=== PATIENT | female | born 1950 | race Caucasian/White ===

== ENCOUNTER 2019-12-06 08:08 | Outpatient (CLI) | payer MEDICARE, SELFPAY ==
--- NOTE | ~2019-12-06 | MR_ITS ---
EXAMINATION: MR shoulder LT wo con DATE: 12/06/2019 09:25 INDICATION: Left shoulder pain TECHNIQUE: Magnetic resonance imaging (MRI) of the left shoulder was performed without intravenous co ntrast. Sequences included axial PD-weighted FS FSE, coronal oblique PD-weighted FS FSE, coronal obli que T2-weighted FS FSE, sagittal PD-weighted FS FSE, and sagittal T1-weighted SE. COMPARISON: None. FINDINGS: Coracoacromial arch: The acromion undersurface is curved in morphology (type II). The coracoacromial ligament is normal. M ild acromioclavicular osteoarthritis. Rotator cuff: Mild subscapularis, supraspinatus and infraspinatus tendinopathy without discrete tear. The teres min or tendon is normal. Normal rotator cuff muscle bulk and signal. Biceps tendon, glenoid labrum and glenohumeral cartilage: Long head of the biceps tendon is normal. Is mild amorphous increased signal of less than fluid inten sity along the inferior glenoid labrum and along the base of the superior glenoid labrum consistent w ith labral degeneration which is more evident on the PD weighted than the T2-weighted images. Partial -thickness cartilage loss with smooth chondral surface and without degenerative subchondral changes a long the cephalad half of the glenoid as well as at the superomedial aspect of the humeral head. Fluid: Small glenohumeral joint effusion with proportional extension of fluid along the long head biceps ten don sheath. There is mild synovitis at the axillary recess and along the long head biceps tendon maria th. No loose osteochondral bodies. Also increased fluid signal in the subacromial/subdeltoid bursa co nsistent with minimal bursitis. Bones: Normal marrow signal with no edema, fracture or abnormal marrow replacing process. IMPRESSION: 1. Mild glenohumeral osteoarthritis with degeneration without a discrete well-defined labral tear at the superior and inferior glenoid labrum. 2. Small left glenohumeral joint effusion. 3. Mild rotator cuff tendinopathy without discrete tear. 4. Mild acromioclavicular osteoarthritis. 5. Minimal subacromial/subdeltoid bursitis. Reviewed, dictated and finalized at location A. IMPRESSION: 1. Mild glenohumeral osteoarthritis with degeneration without a discrete well-d efined labral tear at the superior and inferior glenoid labrum. 2. Small left glenohumeral joint effusion. 3. Mild rotator cuff tendinopathy without discrete tear. 4. Mild acromioclavicular osteoarthritis. 5. Minimal subacromial/subdeltoid bursitis.
== END 2019-12-06 08:09 | disposition home or self-care (01) ==
PROVIDERS: PCP Internal Medicine; Visit Provider Orthopaedic Surgery
DX: M25.512 Pain in left shoulder (principal); G89.29 Other chronic pain; M19.012 Primary osteoarthritis, left shoulder; M25.412 Effusion, left shoulder; M75.52 Bursitis of left shoulder; S43.432A Superior glenoid labrum lesion of left shoulder, initial encounter
CPT/HCPCS: 73221

== ENCOUNTER 2020-05-17 08:40 | Outpatient (CLI) | payer MEDICARE, SELFPAY ==
--- NOTE | 2020-05-17 08:45 | ECG_ITS ---
Measurements Intervals [place] Rate: 57 P: -6 [place]: 197 QRS: -16 QRSD: 114 T: 23 QT: 428 QTc: 420 Interpretive Statements SINUS BRADYCARDIA INCOMPLETE RIGHT BUNDLE BRANCH BLOCK DELAYED PRECORDIAL R/S TRANSITION CONSIDER INFERIOR INFARCT, AGE INDETERMINATE BORDERLINE T WAVE ABNORMALITY- ANTEROLATERAL LEADS BASELINE ARTIFACT- I, III, AVL, AVF, V3-V4 ABNORMAL ECG Electronically Signed On 05-17-2020 8:53:12 LANGUAGE INTERPRETER by Germán Luna D.O.
== END 2020-05-17 08:41 | disposition home or self-care (01) ==
LOC: ANHSURGERY 08:42
PROVIDERS: PCP Internal Medicine; Visit Provider Orthopaedic Surgery
DX: I10 Essential (primary) hypertension (principal); Z01.818 Encounter for other preprocedural examination; I45.10 Unspecified right bundle-branch block
CPT/HCPCS: 93005

== ENCOUNTER → 2020-05-19 00:28 | Outpatient (CLI) | payer MEDICARE, SELFPAY ==
[2020-05-19 17:47] LABS: SARS-CoV-2 RNA PCR Negative
== END ==
PROVIDERS: PCP Internal Medicine; Visit Provider Orthopaedic Surgery
DX: Z01.812 Encounter for preprocedural laboratory examination (principal); Z20.822 Contact with and (suspected) exposure to COVID-19
CPT/HCPCS: C9803; U0003; U0005

== ENCOUNTER 2020-05-22 01:29 | Day surgery (SDC) | payer MEDICARE, SELFPAY ==
[2020-05-15 11:33] VITALS: BMI 28.3
[2020-05-22] VITALS (8 sets, daily range): BP systolic 98–155; BP diastolic 49–77; PULSE 55–65; RESP 10–19; TEMP 36–36.4; O2SAT 93–100
[2020-05-22] MEDS: ACETAMINOPHEN 500 MG TABLET 1000 MG PO (06:22)
[2020-05-22] MEDS: LACTATED RINGERS 1,000 ML 30 ML IV CONT ×2 (06:25→08:46)
[2020-05-22] MEDS: KETOROLAC 15 MG/ML VIAL (*BKC) IV PUSH (06:28)
--- NOTE | 2020-05-22 07:06 | WPDHPUPDATE1 ---
History and Physical Update Update Date/Time: 05/22/20 07:06 History and Physical has been reviewed, including an updated exam of the patient. There are NO changes in the patient's condition. Risks, benefits, and alternatives have been discussed and questions answered. Patient agrees to proceed with procedure.
--- NOTE | 2020-05-22 07:12 | WPDANESEPPF ---
Anes - Initial Pre Proc Eval Procedure: Operation Date: 05/22/20 07:30 Proposed Procedures p Left Shoulder Acromioplasty with Distal Clavicle Excision - Talon Mendez MD Date/Time: 05/22/20 07:12 Surgeon: Talon Mendez MD Pre Op Diagnosis: left shoulder impingement with AC arthritis Patient Data Age: 69 Gender: F Height: 1.63 m Weight: 73.8 kg Last Vital Signs Temp 36.0 C L 05/22/20 06:09 Pulse 65 05/22/20 06:09 Resp 18 05/22/20 06:09 BP 145/77 H 05/22/20 06:09 Pulse Ox 100 05/22/20 06:09 Allergies Allergy/AdvReac Type Severity Reaction Status Date / Time No Known Allergies Allergy Unverified 05/22/20 06:47 Home Medications Medication Instructions Recorded Confirmed Type albuterol sulfate 90 mcg/actuation 1 inhalation INHALATION Q4H PRN 10/19/19 05/22/20 History aerosol inhaler alprazolam 0.5 mg tablet 0.5 mg PO TID PRN 10/19/19 05/22/20 History atorvastatin 20 mg tablet 20 mg PO QAM 10/19/19 05/22/20 History carvedilol 12.5 mg tablet 12.5 mg PO QAM 10/19/19 05/22/20 History denosumab 60 mg/mL subcutaneous 60 mg SUB-Q [id number] 10/19/19 05/22/20 History syringe dicyclomine 20 mg tablet 20 mg PO QID 10/19/19 05/22/20 History fluticasone 250 mcg-salmeterol 50 1 inhalation INHALATION BID 10/19/19 05/22/20 History mcg/dose blistr powdr for inhalation mirtazapine 30 mg tablet 30 mg PO HS 10/19/19 05/22/20 History pantoprazole 40 mg tablet,delayed 40 mg PO QAM 10/19/19 05/22/20 History release polyethylene glycol 3350 17 17 gm PO BID 10/19/19 05/22/20 History gram/dose oral powder telmisartan 20 mg tablet 20 mg PO QAM 10/19/19 05/22/20 History promethazine 25 mg tablet 25 mg PO TID PRN 12/14/19 05/22/20 History aspirin [Adult Low Dose Aspirin] 81 mg PO DAILY 05/15/20 05/22/20 History ECG: Date of Service: 05/17/20 Procedure(s): CA 12 lead EKG Accession Number(s): [id number] cc: ~ Measurements Intervals [place] Rate: 57 P: -6 [place]: 197 QRS: -16 QRSD: 114 T: 23 QT: 428 QTc: 420 Interpretive Statements SINUS BRADYCARDIA INCOMPLETE RIGHT BUNDLE BRANCH BLOCK DELAYED PRECORDIAL R/S TRANSITION CONSIDER INFERIOR INFARCT, AGE INDETERMINATE BORDERLINE T WAVE ABNORMALITY- ANTEROLATERAL LEADS BASELINE ARTIFACT- I, III, AVL, AVF, V3-V4 ABNORMAL ECG Electronically Signed On 05-17-2020 8:53:12 PROSTHETIC ASSISTANT by Germán Luna D.O. Patient hx anesthesia problems: none Family hx anesthesia problems: none FOR[facility]LY [facility], [facility] Past Medical History Medical History (Updated 05/22/20 @ 07:15 by Eligio Hernandez MD) Anxiety Arthritis of left acromioclavicular joint BMI 28.0-28.9,adult COPD (chronic obstructive pulmonary disease) Depression HTN (hypertension) Hypercholesterolemia Osteoporosis Smoker Subacromial impingement of left shoulder Surgical History Surgical History H/O left knee surgery [place] 2004 Dr. Petersen H/O right knee surgery 2006 - [facility] Dr. Petersen [address] Dr perry - arthroscopic 1992 tibia repair - Dr. Villegas 1997 arthroscopic - Dr. Villegas H/O: hysterectomy History of appendectomy Hx of tonsillectomy Family History Family History Mother Hypertension Heart disease Father Hypertension Diabetes mellitus Malignant neoplasm of prostate Cancer Social History Social History Smoking packs per day: 2 Smoking cigarettes per day: 40.0 Years smoked: 50 Smoking pack-years: 100.00 Smoking status: Current every day smoker Additional smoking assessment comments: TAPERING DOWN SMOKING CURRENTLY TO ~ 1/2 PACK/DAY [place]
[2020-05-22] MEDS: ceFAZolin 2 GM/D5W 50 ML 2 GM/50 ML BAG IVPB (07:28)
[2020-05-22] MEDS: BUPIVACAINE/EPINEPHRINE 0.25% 50 ML VIAL 30 ML INFILTRATE (08:03)
--- NOTE | 2020-05-22 08:37 | P.OP_ITS ---
Procedure Note - Detailed Date of procedure: 05/22/20 Pre-op diagnosis: left shoulder impingement with AC arthritis Post-op diagnosis: same Procedure performed: Left shoulder open anterior acromioplasty, distal clavicle excision and debridement of rotator cuff Description of procedure: Patient was identified and proper site identified. She was then taken to the operating room and transferred to the or table taking care to pad the torso and extremities. After general anesthetic induction and intubation, she was put in a semi beach chair position in the usual manner for a left shoulder procedure. Her head was secured taking care to neither rotate nor extend the head and neck. The left upper extremity was prepped and draped free in usual sterile fashion. The subcutaneous tissue in the area of the incision was injected with 10 cc of 0.25% Marcaine and epinephrine solution. An oblique anterior incision was made extending from the AC joint distally in line with the fibers of the deltoid. Subcutaneous tissue was sharply dissected down to the deltoid fascia. The deltoid was dissected off the anterior portion of the acromion in the distal end of the clavicle. A 2 cm split was made at the junction between the anterior and middle thirds of the deltoid. Using the microsagittal saw the last 8 mm of clavicle removed. The saw was also used to perform the acromioplasty and then the undersurface of the acromion was rasped smooth. There was abundance of thickened bursa which was sharply debrided along for full inspection of the rotator cuff. The cuff itself was noted to be in excellent condition with no tears noted upon inspection. The wound was irrigated with sterile NaCl solution. The deltoid was repaired back to the acromion with 2. Ethibond suture passed through bone and the remainder of the deltoid repair carried out with 2. Vicryl. Subcutaneous tissue was reapproximated with three 0 V lock and then tissue adhesive used for the skin. Prior to the closure, catheter for the pain pump was placed in the subacromial space exiting through the anterior third of the deltoid. Care was taken to avoid neurovascular structures upon insertion and to avoid entrapment of the catheter during the closure. It was connected to the reservoir which was filled with 100 mL of 1% lidocaine runny and a 2 mL/hour rate. Sterile dressing was applied. There were no known intraoperative complications, and perioperative an tibiotics were administered. This document created with [id number] technology and is subject to technical assistance consultant irregularities. Anesthesia: GETA Surgeon: Talon Mendez MD Wireless Development Manager: Eriberto Sanchez Estimated blood loss (mL): 30 Drains: No Packing: No Pathology: none sent Complications: No immediate complications Condition: stable Disposition: PACU
== END 2020-05-22 10:55 | disposition home or self-care (01) ==
PROVIDERS: PCP Internal Medicine; Visit Provider Orthopaedic Surgery
PROC: (CPT 23420; principal; 2020-05-22 07:30)
DX: M75.42 Impingement syndrome of left shoulder (principal); M19.012 Primary osteoarthritis, left shoulder; I10 Essential (primary) hypertension; J44.9 Chronic obstructive pulmonary disease, unspecified; E78.00 Pure hypercholesterolemia, unspecified; M81.0 Age-related osteoporosis without current pathological fracture; F41.8 Other specified anxiety disorders; F17.210 Nicotine dependence, cigarettes, uncomplicated
CPT/HCPCS: 23130; 23120; A4565; A9270; J0330; J0690; J1100; J1885; J2250; J2370; J2405; J2704; J2710; J3010; J7120

== ENCOUNTER 2023-11-04 10:07 | Outpatient (CLI) | payer MEDICARE, SELFPAY ==
--- NOTE | ~2023-11-04 | MM_ITS ---
EXAMINATION: MM screening roger BI w pooja HISTORY: Screening TECHNIQUE: Craniocaudal and mediolateral oblique 3-D tomosynthesis images were obtained and synthetic 2-D images were generated. CAD analysis was submitted and interpreted. COMPARISON: 05/05/2017 BREAST PARENCHYMAL COMPOSITION: Dense: The breasts are heterogeneously dense, which may obscure small masses FINDINGS: There is no evidence of suspicious mass, calcification, or architectural distortion to sugg est malignancy in either breast. There has been no suspicious interval change. IMPRESSION: 1. No mammographic evidence of malignancy. 2. Recommend routine screening mammography in one year. BI-RADS Category 1: Negative Reviewed, dictated and finalized at location B.
== END 2023-11-04 10:08 ==
LOC: MICIMG 10:09
PROVIDERS: PCP Internal Medicine; Visit Provider Internal Medicine
DX: Z12.31 Encounter for screening mammogram for malignant neoplasm of breast (principal)
CPT/HCPCS: 77063; 77067

== ENCOUNTER 2024-02-12 23:46 | Emergency (ER) | payer MEDICARE, SELFPAY ==
--- NOTE | ~2024-02-12 | XR_ITS ---
AP view of the pelvis and AP and lateral views of the left hip Clinical history: Pain Findings: No acute fracture or dislocation is seen. Osseous alignment is anatomic. Bilateral hip and SI joint spaces are preserved. Soft tissues are unremarkable. Impression: No significant abnormality is seen. Reviewed, dictated and finalized at [facility]. ING AND PRIMING OPERATOR Impression: No significant abnormality is seen.
--- NOTE | ~2024-02-12 | XR_ITS ---
Clinical Indication: Dizziness, fall PA and lateral views of the chest: Comparison: None Findings: Possible minimal bibasilar interstitial edema. No pleural effusion.. Cardiomediastinal giovanni houette is within normal limits. Bones and soft tissues are unremarkable. Impression: Possible minimal bibasilar interstitial edema. Reviewed, dictated and finalized at [facility]. ON CLASSER Impression: Possible minimal bibasilar interstitial edema.
[2024-02-12 23:56] VITALS: BP 182/86; PULSE 64; RESP 18; TEMP 36.8; O2SAT 96
--- NOTE | 2024-02-13 02:07 | ECG_ITS ---
Test Date: 2024-02-13 02:33:46 Measurements Intervals [place] Rate: 66 P: 26 [place]: 225 QRS: -28 QRSD: 126 T: 27 QT: 427 QTc: 450 Interpretive Statements SINUS RHYTHM WITH FIRST DEGREE AV BLOCK RIGHT BUNDLE BRANCH BLOCK INFERIOR INFARCT, AGE INDETERMINATE BASELINE ARTIFACT- I, III, AVL ABNORMAL ECG No previous ECG available for comparison Electronically Signed On 02-13-2024 06:26:01 CORPORATE CONSULTANT by Germán Luna D.O.
[2024-02-13 02:22] VITALS: BP 150/81; PULSE 74; RESP 19; O2SAT 95
[2024-02-13 02:44] LABS: Basophils Percent Auto 0.3 % (0.2-1.2); Eosinophils Absolute Auto 0.2 K/mm3 (0-0.3); Eosinophils Percent Auto 1.3 % (0-4.4); Hematocrit 39.2 % (37.0-47.0); Immature Granulocyte Absolute 0.04 K/mm3 (0.00-0.031); Immature Granulocyte Percent A 0.3 % (0-0.5); Lymphocytes Absolute Auto 2.39 K/mm3 (0.9-3.2); Lymphocytes Percent Auto 20.3 % (18.3-44.2); Mean Corpuscular HGB Conc 33.2 g/dl (32-36); Mean Corpuscular Hemoglobin 30.2 pg (26-34); Mean Corpuscular Volume 91.2 fl (80-100); Mean Platelet Volume 10.5 fl (7.4-10.4); Monocytes Absolute Auto 0.5 K/mm3 (0.1-0.6); Monocytes Percent Auto 4.6 % (2.6-8.5); Neutrophils Absolute Auto 8.6 K/mm3 (1.3-6.7); Neutrophils Percent Auto 73.2 % (45.5-73.1); Platelet Count Result 222 k/mm3 (150-375); Red Cell Distribution Width 13.4 % (11.5-14.5); White Blood Count 11.8 K/mm3 (4.5-10.0)
[2024-02-13] MEDS: MECLIZINE HCL 25 MG TABLET PO (02:53)
[2024-02-13] MEDS: MORPHINE SULFATE (*CRX) 2 MG/ML INJ IV PUSH (02:53)
[2024-02-13 02:55] LABS: Prothrombin Time 13.9 Seconds (11.1-14.7)
[2024-02-13 03:05] LABS: Alanine Aminotransferase 17 U/L (6-35); Albumin Level 4.1 g/dL (3.5-5.1); Alkaline Phosphatase 120 U/L (38-126); Anion Gap 6 mmol/L (4-12); Aspartate Amino Transferase 26 U/L (14-36); Bilirubin,Total 0.4 mg/dL (0.2-1.3); Blood Urea Nitrogen 17 mg/dL (7-17); Calcium 9.5 mg/dL (8.4-10.2); Carbon Dioxide 27 mmol/L (22-30); Chloride 105 mmol/L (98-107); Estimated CRCL calculation 52 ml/min; Estimated Glomerular Filt Rate > 60; Glucose 198 mg/dL (65-110); Lipase 167 U/L (23-300); Potassium 3.5 mmol/L (3.4-5.0); Sodium 138 mmol/L (137-145)
[2024-02-13 03:17] LABS: Troponin I < 0.012 ng/mL (0.000-0.034)
[2024-02-13 04:04] VITALS: BP 183/88; PULSE 62; RESP 19; O2SAT 98
--- NOTE | 2024-02-13 05:13 | ED_ITS ---
HPI - General Adult General Chief complaint: Dizziness Stated complaint: light headed, dizzy Time Seen by Provider: 02/13/24 02:11 History of Present Illness HPI narrative: Patient is a 73-year-old female who presents ER with dizziness. Began yesterday at 3:00 a.m.. She has episodes of spinning dizziness that occur when she looks down. The dizziness will fatigue over couple of minutes. Occasional warmth and nausea. No numbness or weakness to an arm or leg. No slurred speech. She did have a fall onto her left side hurting her hip but she still is able to walk and maintain range of motion. She is not on any blood thinners. She did not strike her head. Related Data Home Medications Medication Instructions Recorded Confirmed albuterol sulfate 90 mcg/actuation 1 inhalation inhalation Q4H PRN 10/19/19 07/04/20 aerosol inhaler (ProAir HFA) Dyspnea alprazolam 0.5 mg tablet 0.5 mg PO TID PRN Anxiety 10/19/19 07/04/20 atorvastatin 20 mg tablet 20 mg PO QAM 10/19/19 06/06/20 carvedilol 12.5 mg tablet 12.5 mg PO QAM 10/19/19 07/04/20 denosumab 60 mg/mL subcutaneous 60 mg subcut [id number] 10/19/19 07/04/20 syringe (Prolia) dicyclomine 20 mg tablet 20 mg PO QID 10/19/19 07/04/20 fluticasone 250 mcg-salmeterol 50 1 inhalation inhalation BID 10/19/19 07/04/20 mcg/dose blistr powdr for inhalation (Advair Diskus) mirtazapine 30 mg tablet 30 mg PO HS 10/19/19 07/04/20 pantoprazole 40 mg tablet,delayed 40 mg PO QAM 10/19/19 07/04/20 release polyethylene glycol 3350 17 17 gm PO BID 10/19/19 07/04/20 gram/dose oral powder telmisartan 20 mg tablet 20 mg PO QAM 10/19/19 07/04/20 promethazine 25 mg tablet 25 mg PO TID PRN Nausea 12/14/19 07/04/20 aspirin 81 mg tablet,delayed 81 mg PO DAILY 05/15/20 07/04/20 release (Adult Low Dose Aspirin) Allergies Allergy/AdvReac Type Severity Reaction Status Date / Time No Known Allergies Allergy Verified 02/13/24 02:23 Review of Systems Review of Systems: All systems reviewed & are unremarkable except as noted in HPI and below Constitutional: Constitutional: Reports no additional constitutional complaints ENT: Reports dizziness, Denies nasal congestion and Denies sore throat Cardiovascular: Cardiovascular: Reports no additional cardiovascular complaints Respiratory: Respiratory: Reports no additional respiratory complaints Integumentary/Breasts: Skin/Breast: Reports system reviewed and no additional complaints, except as docu Neurologic: Reports system reviewed and no additional complaints, except as documented [facility] Past Medical History Medical History Anxiety BMI 28.0-28.9,adult COPD (chronic obstructive pulmonary disease) Depression HTN (hypertension) Hypercholesterolemia Osteoporosis Smoker Surgical History Surgical History H/O left knee surgery [place] 2004 Dr. Petersen H/O right knee surgery 2006 - [facility] Dr. Petersen 1991 [address] perry - arthroscopic 1992 tibia repair - Dr. Villegas 1997 arthroscopic - Dr. Villegas H/O: hysterectomy History of appendectomy Hx of tonsillectomy Status post shoulder surgery Left shoulder acromioplasty and distal clavicle excision May 2020 Family History Family History Mother Hypertension Heart disease Father Hypertension Diabetes mellitus Malignant neoplasm of prostate Cancer Social History Social History Smoking packs per day: 2 Smoking cigarettes per day: 40.0 Years smoked: 50 Smoking pack-years: 100.00 Smoking status: Current every day smoker Additional smoking assessment comments: TAPERING DOWN SMOKING CURRENTLY TO ~ 1/2 PACK/DAY Alcohol intake: current Drinks per week: 3 Alcohol use details: occasional Substance use: never Living arrangements: with family Additional living arrangements comments: HUSB Occupation/Education: retired Gender identity (if verbalized by the patient): Male Spiritual care concerns: No Exam Narrative: GENERAL: Well-appearing, well-nourished, and in no acute distress. HEAD: Normocephalic, atraumatic. EYES: PERRL and EOMI. ENT: Mucous membranes moist. TMs normal bilaterally. CHEST: Clear to auscultation. No respiratory distress. HEART: Regular rate and rhythm. Normal peripheral pulses. ABDOMEN: Soft, nontender, nondistended. EXTREMITIES: Normal range of motion. No edema. SKIN: Warm, dry, no rash. NEURO: Alert and oriented x3. PSYCH: Normal mood and affect. Course Course Emergency Course: Reproducible dizziness when looking down. Modest improvement with meclizine. Patient ambulates with steady gait in the ER. No evidence of fracture on imaging. Appropriate for discharge in that is patient's preference. Vital Signs Vital signs: Vital Signs Temperature 98.3 F 02/12/24 23:56 Pulse Rate 64 02/12/24 23:56 Respiratory Rate 18 02/12/24 23:56 Blood Pressure 182/86 H 02/12/24 23:56 Pulse Oximetry 96 02/12/24 23:56 Oxygen Delivery Room Air 02/12/24 23:56 Temperature 98.3 F 02/12/24 23:56 Pulse Rate 62 02/13/24 04:04 Respiratory Rate 19 02/13/24 04:04 Blood Pressure 183/88 H 02/13/24 04:04 Pulse Oximetry 98 02/13/24 04:04 Oxygen Delivery Room Air 02/12/24 23:56 Medical Decision Making Vital Signs Vital Signs: Vital Signs Temperature 98.3 F 02/12/24 23:56 Pulse Rate 64 02/12/24 23:56 Respiratory Rate 18 02/12/24 23:56 Blood Pressure 182/86 H 02/12/24 23:56 Pulse Oximetry 96 02/12/24 23:56 Oxygen Delivery Room Air 02/12/24 23:56 Temperature 98.3 F 02/12/24 23:56 Pulse Rate 62 02/13/24 04:04 Respiratory Rate 19 02/13/24 04:04 Blood Pressure 183/88 H 02/13/24 04:04 Pulse Oximetry 98 02/13/24 04:04 Oxygen Delivery Room Air 02/12/24 23:56 Lab Data 02/13/24 02:39 02/13/24 02:39 Labs: Lab Results 02/13/24 Range/Units 02:39 WBC 11.8 H (4.5-10.0) K/mm3 RBC 4.30 (4.2-5.4) M/mm3 Hgb 13.0 (12.0-15.0) g/dL Hct 39.2 (37.0-47.0) % MCV 91.2 (80-100) fl MCH 30.2 (26-34) pg MCHC 33.2 (32-36) g/dl RDW 13.4 (11.5-14.5) % Plt Count 222 (150-375) k/mm3 MPV 10.5 H (7.4-10.4) fl Immature Gran % (Auto) 0.3 (0-0.5) % Neut % (Auto) 73.2 H (45.5-73.1) % Lymph % (Auto) 20.3 (18.3-44.2) % [place] % (Auto) 4.6 (2.6-8.5) % Eos % (Auto) 1.3 (0-4.4) % Baso % (Auto) 0.3 (0.2-1.2) % Lymph # (Auto) 2.39 (0.9-3.2) K/mm3 [place] # (Auto) 0.5 (0.1-0.6) K/mm3 Eos # (Auto) 0.2 (0-0.3) K/mm3 Baso # (Auto) 0.0 (0.0-0.1) K/mm3 Abs Immat Gran (auto) 0.04 H (0.00-0.031) K/mm3 Absolute Neuts (auto) 8.6 H (1.3-6.7) K/mm3 Absolute Nucleated RBC 0.000 (0.0-0.012) K/mm3 Nucleated RBC % 0.0 (0.0-0.2) % PT 13.9 (11.1-14.7) Seconds INR 1.0 APTT 26.0 (22.3-36.8) Seconds Sodium 138 (137-145) mmol/L Potassium 3.5 (3.4-5.0) mmol/L Chloride 105 (98-107) mmol/L Carbon Dioxide 27 (22-30) mmol/L Anion Gap 6 (4-12) mmol/L BUN 17 (7-17) mg/dL Creatinine 0.70 (0.7-1.0) mg/dL Estim Creat Clear Calc 52 ml/min Estimated GFR > 60 (59 - ) Glucose 198 H (65-110) mg/dL Calcium 9.5 (8.4-10.2) mg/dL Total Bilirubin 0.4 (0.2-1.3) mg/dL AST 26 (14-36) U/L ALT 17 (6-35) U/L Alkaline Phosphatase 120 (38-126) U/L Troponin I < 0.012 (0.000-0.034) ng/mL Total Protein 8.0 (6.3-8.2) g/dL Albumin 4.1 (3.5-5.1) g/dL Lipase 167 (23-300) U/L Imaging Data Radiologist's impression: X-ray left hip and pelvis: No acute fracture. Chest x-ray: No acute cardiopulmonary process ECG Data EKG #1: ECG completion date: 02/13/24 ECG completion time: 02:33 EKG Interpretation: normal rate (66), sinus rhythm, no ectopy, no ST changes, normal QRS, normal QT and left axis Discharge Plan Discharge Clinical Impression: Vertigo Patient Disposition: Home, Self-Care Condition: Stable Instructions: Vertigo (ED) Additional Instructions: Return to the ER if you have weakness in an arm/leg, you cannot speak, you lose consciousness, or suffer injury. Prescriptions: New meclizine 12.5 mg tablet 12.5 mg PO TID PRN (Reason: dizziness) Qty: 20 0RF No Action polyethylene glycol 3350 17 gram/dose powder 17 gm PO BID alprazolam 0.5 mg tablet 0.5 mg PO TID PRN (Reason: Anxiety) mirtazapine 30 mg tablet 30 mg PO HS carvedilol 12.5 mg tablet 12.5 mg PO QAM Rx Instructions: must administer with a meal/food pantoprazole 40 mg tablet,delayed release (DR/EC) 40 mg PO QAM dicyclomine 20 mg tablet 20 mg PO QID atorvastatin 20 mg tablet 20 mg PO QAM fluticasone propion-salmeterol [Advair Diskus] 250-50 mcg/dose blister with device 1 inhalation INHALATION BID albuterol sulfate [ProAir HFA] 90 mcg/actuation HFA aerosol inhaler 1 inhalation INHALATION Q4H PRN (Reason: Dyspnea) telmisartan 20 mg tablet 20 mg PO QAM Prolia 60 mg/mL syringe 60 mg SUB-Q [id number] promethazine 25 mg tablet 25 mg PO TID PRN (Reason: Nausea) aspirin [Adult Low Dose Aspirin] 81 mg Tablet,Delayed Release (Dr/Ec) 81 mg PO DAILY hydrocodone-acetaminophen 5-325 mg tablet 1 tablet PO Q4H PRN (Reason: pain) Qty: 42 0RF ondansetron 4 mg tablet,disintegrating 4 mg PO Q6H Qty: 10 1RF Follow-up/Referrals: Rakan,MD Reilly [Primary Care Provider] - 1 Week
== END 2024-02-13 05:45 | disposition home or self-care (01) ==
PROVIDERS: Emergency Provider Emergency Medicine; PCP Internal Medicine
DX: R42 Dizziness and giddiness (principal); I10 Essential (primary) hypertension; J44.9 Chronic obstructive pulmonary disease, unspecified; E78.00 Pure hypercholesterolemia, unspecified; M81.0 Age-related osteoporosis without current pathological fracture; F17.210 Nicotine dependence, cigarettes, uncomplicated; Z96.653 Presence of artificial knee joint, bilateral; Z90.710 Acquired absence of both cervix and uterus; Z79.899 Other long term (current) drug therapy; Z79.82 Long term (current) use of aspirin; I44.0 Atrioventricular block, first degree; I45.10 Unspecified right bundle-branch block; R94.31 Abnormal electrocardiogram [ECG] [EKG]
CPT/HCPCS: 36415; 71046; 73502; 80053; 83690; 84484; 85025; 85610; 85730; 93005; 96374; 99284; A9270; J2270

== ENCOUNTER 2024-02-27 10:06 | Outpatient (CLI) | payer MEDICARE, SELFPAY ==
--- NOTE | ~2024-02-27 | MR_ITS ---
MRI of the brain Clinical History: Dizziness, vertigo Technique: Axial and sagittal T1-weighted images were acquired. These were followed by axial T2-weigh denise, diffusion weighted, gradient, and FLAIR images. Findings: There is no acute infarct, intracranial hemorrhage, or mass lesion. There are mild to moder ate chronic microvascular ischemic changes in the periventricular white matter bilaterally. Ventricles and subarachnoid spaces are unremarkable. Orbits are unremarkable. Paranasal sinuses and m astoid air cells are clear. Major intracranial flow voids appear intact. Sagittal midline structures are intact. IMPRESSION: No acute infarct, internal hemorrhage or mass lesion. Mild to moderate chronic microvascular ischemic changes. Reviewed, dictated and finalized at location M. CIATE TRAINER
== END 2024-02-27 10:07 | disposition home or self-care (01) ==
LOC: GOSHIMG 10:09
PROVIDERS: PCP Internal Medicine; Visit Provider Internal Medicine
DX: R42 Dizziness and giddiness (principal)
CPT/HCPCS: 70551

== ENCOUNTER 2024-06-24 07:44 | Outpatient (CLI) | payer MEDICARE, SELFPAY ==
--- NOTE | ~2024-06-24 | MR_ITS ---
MRI of the right shoulder Technique: Axial proton-density fat-sat images, coronal proton density fat-sat and T2 fat-sat images, and sagittal T1-weighted and T2 fat-sat images were acquired. Clinical History: Pain Findings: There is mild AC joint degenerative change. Coracoclavicular, coracoacromial, and coracohum eral ligaments are intact. There is advanced supraspinatus and infraspinatus tendinosis. There is a focal low-grade interstitial tear at the distal infraspinatus tendon insertion region. No high-grade partial or full-thickness te ar. Tendon of the long head of biceps is intact. Subscapularis tendon is intact. No definite labral tear identified. Inferior glenohumeral ligament is intact. There is moderate to large glenohumeral joint effusion, non specific. There is associated fluid distention of the bicipital tendon sheath. No significant degener ative change of glenohumeral joint. No muscle atrophy or edema. Impression: Advanced supraspinatus and infraspinatus tendinosis with focal low-grade linear interstitial tear of the distal infraspinatus tendon insertion. No high-grade partial or full-thickness rotator cuff tear. Moderate to large glenohumeral joint effusion, nonspecific. Consider joint aspiration if indicated. Mild AC joint degenerative change. Reviewed, dictated and finalized at [facility]. Impression: Advanced supraspinatus and infraspinatus tendinosis with focal low-grade linear interstitial tear of the distal infraspinatus tendon insertion. No high-grade partial or full-thickness rotator cuff tear. Moderate to large glenohumeral joint effusion, nonspecific. Consider joint aspi ration if indicated. Mild AC joint degenerative change.
== END 2024-06-24 07:45 | disposition home or self-care (01) ==
LOC: MICIMG 07:46
PROVIDERS: PCP Internal Medicine; Visit Provider Orthopaedic Surgery
DX: M75.81 Other shoulder lesions, right shoulder (principal); M19.011 Primary osteoarthritis, right shoulder; M25.411 Effusion, right shoulder
CPT/HCPCS: 73221

== ENCOUNTER 2024-08-27 07:17 | Outpatient (CLI) | payer MEDICARE, SELFPAY ==
--- NOTE | 2024-08-27 | ECHO_ITS ---
Patient Info Name: Duyen Do Age: 73 years : 1950 Gender: Female Ht: 64 in Wt: 160 lbs BSA: 1.83 m2 HR: 55 bpm BP: 132 / 79 mmHg Heart Rhythm: Bradycardia Technical Quality: Good Exam Date: 08/27/2024 8:08 AM Patient Status: O Admit Date: 08/27/2024 Exam Type: CA echo doppler color flow Complete two-dimensional, color flow and Doppler transthoracic echocardiogram is performed. Manager Engine: Marlen Sy Attending Provider: Reilly Bledsoe Summary 1. Left ventricular chamber dimension is normal. 2. Left ventricular systolic function is normal, estimated at 65-70. 3. There is moderately increased left ventricular wall thickness. 4. The left ventricular diastolic function is grade I diastolic dysfunction. 5. Right ventricular systolic function is normal. 6. Left atrial chamber dimension is mildly enlarged. 7. There is mild aortic valve regurgitation. 8. There is mild tricuspid valve regurgitation. 9. Cannot rule out PFO/ASD by color Doppler. Left Ventricle Left ventricular chamber dimension is normal. Left ventricular systolic function is normal, estimated at 65-70. There is moderately increased left ventricular wall thickness. The left ventricular diastolic function is grade I diastolic dysfunction. Right Ventricle Right ventricular chamber dimension is normal. Right ventricular systolic function is normal. Left Atria Left atrial chamber dimension is mildly enlarged. Right Atria Right atrial chamber dimension is normal. Atrial Septum Cannot rule out PFO/ASD by color Doppler. Aortic Valve The aortic valve is not well visualized. There is no aortic valve stenosis. There is mild aortic valve regurgitation. Pulmonic Valve The pulmonic valve is not well visualized. Mitral Valve There is trace mitral valve regurgitation. Tricuspid Valve There is mild tricuspid valve regurgitation. Pericardium/Pleural There is no pericardial effusion. Inferior Vena Cava Normal inferior vena cava with >50% collapse upon inspiration consistent with normal right atrial pressure, 3 mmHg. Aorta The aortic root size at the sinus of Valsalva is normal. Left Ventricular Outflow Tract Name Value Normal LVOT Doppler LVOT Peak Velocity 92 cm/s LVOT Peak Gradient 3 mmHg LVOT Mean Gradient 2 mmHg LVOT VTI 25 cm LVOT VTI/AV VTI Ratio 0.8 Pulmonic Valve Name Value Normal PV Doppler PV Peak Velocity 95 cm/s PV Peak Gradient 4 mmHg Mitral Valve Name Value Normal MV Diastolic Function MV E Peak Velocity 64 cm/s MV A Peak Velocity 110 cm/s MV E/A 0.6 MV Decel Time (PW) 400 ms MV Annular TDI MV E/e' (Septal) 13.3 MV E/e' (Lateral) 10.1 MV E/e' (Average) 11.7 Tricuspid Valve Name Value Normal TV Regurgitation Doppler TR Peak Velocity 258 cm/s TR Peak Gradient 27 mmHg Estimated PAP/RSVP RA Pressure 3 mmHg <=5 PA Systolic Pressure 30 mmHg <36 RV Systolic Pressure 30 mmHg <36 TV Annular TDI TV Lateral Donna s' Velocity 10.5 cm/s >=9.5 Aorta Name Value Normal Ascending Aorta Ao Root Diameter (MM) 3.5 cm Ao Root Diam Index (MM) 1.9 cm/m2 Aortic Valve Name Value Normal AV Doppler AV Peak Velocity 150 cm/s AV Peak Gradient 9 mmHg AV Mean Gradient 4 mmHg AV VTI 30 cm AV DI (Abelino) 0.61 Ventricles Name Value Normal LV Dimensions 2D/MM IVS Diastolic Thickness (2D) 1.3 cm 0.6-1.0 LVID Diastole (2D) 4.1 cm 3.8-5.2 LVIW Diastolic Thickness (2D) 1.2 cm 0.6-0.9 LVID Systole (2D) 3.0 cm 2.2-3.5 LV Mass (2D Cubed) 183.85 g 67.00-162.00 LV Mass Index (2D Cubed) 101 g/m2 43-95 Relative Wall Thickness (2D) 0.58 <=0.42 LV Fractional Shortening/Ejection Fraction 2D/MM LV Fractional Shortening (2D) 27 % 27-45 LV EF (2D Teichholz) 53 % LV Diastolic Volume (4C MOD) 57 ml LV EF (4C MOD) 60 % LV Diastolic Volume (2C MOD) 75 ml LV EF (2C MOD) 73 % LV Diastolic Volume (BP MOD) 66 ml 46-106 LV Diastolic Volume Index (BP MOD) 36 ml/m2 29-61 LV Systolic Volume (BP MOD) 21 ml 14-42 LV Systolic Volume Index (BP MOD) 12 ml/m2 8-24 LV EF (BP MOD) 68 % 54-74 LV Diastolic Length (4C) 7.7 cm LV Systolic Length (4C) 6.0 cm LV Stroke Volume (4C MOD) 34 ml RV Dimensions 2D/MM RVID Diastole (2D) 3.2 cm 2.1-3.5 Atria Name Value Normal LA Dimensions LA Volume (4C A-L) 44 ml LA Volume (BP A-L) 49 ml RA Dimensions RA Systolic Major Graton Length (4C) 4.4 cm 2.2-2.8 RA Area (4C) 12.3 cm2 <=18.0 Report Signatures
--- NOTE | 2024-08-27 | ECG_ITS ---
Test Date: 2024-08-27 08:39:01 Measurements Intervals Randolph Rate: 54 P: 186 ME: 118 QRS: -18 QRSD: 131 T: 21 QT: 464 QTc: 440 Interpretive Statements SINUS BRADYCARDIA WITH SHORT ME INTERVAL INCOMPLETE RIGHT BUNDLE BRANCH BLOCK INFERIOR INFARCT, AGE INDETERMINATE BORDERLINE ST-T WAVE ABNORMALITY0 ANTERIOR LEADS BASELINE ARTIFACT- I, II, III, AVR, AVL, AVF, V1, V4-V6 ABNORMAL ECG Compared to ECG 02/13/2024 02:33:46 NO SIGNIFICANT CHANGE Electronically Signed On 08-27-2024 09:20:58 CDT by Germán Luna D.O.
--- OUTSIDE RECORDS SUMMARY | 2024-08-27 07:23 | XMS_ITS | Data Portability ---
Author Organization [place] [facility], Main Office Address [address] [place] [address] Care Team Providers Care Desk Clerk Name Role Phone MILES BLEDSOE Primary Care Provider MILES BLEDSOE Referring Provider [phone] Assessment Encounter Date Assessment Date Assessment LastModified by Organization Details LastModified Time 10/07/2022 10/07/2022 Continue current therapy Blood work ordered Immunizations and screening ordered were appropriate patient agreeable Take her blood pressure during the next 1 of the spells and reports the office [email or web address] Not available 10/07/2022 22:12:33 02/03/2023 02/03/2023 Continue current therapy will workup her dizziness and palpitations with the ordered testing she will see me back in 4 months again is sounds most like vasovagal of she gets sweaty dizzy very quick to recover [email or web address] Not available 02/03/2023 13:56:58 Plan of Treatment Reminders Order Date Submit Date Provider Last Modified By Organization Details Last Modified Time Details Appointments None recorded. Lab T4, free, serum 2022 023 [facility] (Lab), [address] [place], [address], 3 14:40:10 T3, free, serum or plasma 2022 023 [facility] (Lab), [address] [place], [address], 3 14:40:12 TSH, serum or plasma 2022 023 [facility] (Lab), [address] [place], [address], 3 14:51:44 magnesium, serum or plasma 2022 023 [facility] (Lab), [address] [place], [address], 3 14:33:47 CMP, serum or plasma 2022 023 [facility] (Lab), [address] [place], [address], 3 14:33:58 CBC w/ auto diff 2022 023 [facility] (Lab), [address] [place], [address], 3 13:49:30 lipid panel, serum 2022 023 [facility] (Lab), [address] [place], [address], 3 14:34:04 CBC w/ auto diff [address] (Lab), [address] [place], [address], 3 13:13:01 lipid panel, serum 2022 023 [facility] (Lab), [address] [place], [address], 3 13:19:34 CMP, serum or plasma 2022 023 [facility] (Lab), [address] [place], [address], 3 13:19:43 Referral None recorded. Procedures lexiscan cardiolite stress test (PROC) 2022 023 [email or web address] [facility], [address], [address], [place], [address], 4 18:49:34 Surgeries None recorded. Imaging US, echocardiog merle 2022 023 [facility], [address], [address], [place], [address], 3 16:47:13 holter monitor - 2 wk holter 2022 023 [facility], [address], [address], [place], [address], 4 12:19:00 US, duplex, carotid artery 2022 023 [facility], [address], [address], [place], [address], 3 00:21:07 electrocard iogram 2022 023 [email or web address] [facility] [address], [address], [place], [address], 3 13:57:14 Medication Orders None recorded. Patient TargetsNo targets recorded. Patient Instructions Encounter Date Encounter Id Patient Instructions Last Modified By Organization Details Last Modified Time 10/07/2022 [id number] dementia rating scale-2* [email or web address] Not available 10/07/2022 13:13:01 multi-dimensiona l health assessment questionnaire* [email or web address] Not available 10/07/2022 13:13:01 care plan* [email or web address] Not available 10/07 13:13:01 advance directiv es: care instructions Not available 10/07/2022 13:13:01 advance care planning: care instructions [email or web address] Not available 10/07/2022 13:13:01 [place] Advance Directives [email or web address] Not available 10/07/2022 13:13:01 Personalized Hea lth Plan and Screening Recommendations Advance Directives - Do you have one? Advance Directives - Do we have your advance directive on file in your health record? Primary Prevention/Interven tion (prevents or decreases the chance of common diseases from occurring) Smoking Risk: Alcohol Misuse Screening: Weight: Physical activity: Nutrition: Fall Risk (screened today): Vaccines Pneumococcal: # Ordered Recommend ed today Recommended today, but you have declined No further needed Your next one in: Influenza: # Ordered Recommend ed today Recommended today, but you have declined Your next one in the fall of this year Chronic Disease Risks Stroke: Active diagnosis, Continue current treatment plan Heart Attack: Active diagnosis, Continue current treatment plan Clogging of the Arteries: Active diagnosis, Continue current treatment plan Diabetes: Active diagnosis, Continue current treatment plan Secondary Prevention/Interven tion (detects treatable diseases before they may cause symptoms, disability, or ) Breast Cancer Screening with mammogram: Cervical/Uterine/Ov randy Cancer Screening: Osteoporosis Screening: Date Screening Last Performed: Colon Cancer Screening: Date Screening Last Performed: Eye Disease Screening: Your next exam in:# Ordered Recomm ended today Recommended today, but you have declined No Eye exam necessary Dementia Risk: Depression Screening: Active diagnosis, Continue current treatment plan [email or web address] Not available 10/07/2022 11:08:04 Reason for Referral None Reported. Results Created Date Observation Date Name Description Value Unit Range Abnormal Flag Note LastModifiedBy Organization Detail LastModifiedTime 06/21/19 22 06/20/2021 LIPID PANEL cholesterol 175 mg/dL 140-19 9 NIH GISEL NSUS RECOM MENDA TION FOR LION STERO L: ADULT CHILD LOW RISK: <200 <170 BORDE RLINE : <200- 239 ----- HIGH RISK: >240 >200 Not Available [facility] (Lab) [facility] [place], [address], 06/20/2021 18:35:03 06/21/19 22 06/20/2021 LIPID PANEL triglyceride s 268 mg/dL 0-150 high NIH GISEL NSUS REPOR T RECOM MENDA TION FOR TRIGL YCERI RUBIO: ADULT CHILD LOW RISK: <150 ----- BODER LINE: 150-1 99 ----- HIGH RISK: >200 ----- Not Available [facility] (Lab) [address] [place], [address], 06/20/2021 18:35:03 06/21/19 22 06/20/2021 LIPID PANEL HDL cholesterol 50 mg/dL 40- Not Available [facility] (Lab) [address] [place], [address], 06/20/2021 18:35:03 06/21/19 22 06/20/2021 LIPID PANEL LDL cholesterol, calculated 71 mg/dL 0-130 NIH GISEL NSUS REPOR T RECOM MENDA TIONS FOR LDL: ADULT CHILD LOW RISK <130 <110 (OPTI MAL LDL) <100 ----- BORDE RLINE : 130-1 59 ----- HIGH RISK: >160 >130 A TRIGL YCERI DE RESUL T >400 INVAL IDATE S THE CALCU LATIO N FOR LDL FRACT IONAT ION - THE LDL RESUL T WILL NOT BE REPOR MERRILL. Not Available [facility] (Lab) [address] [place], [address], 06/20/2021 18:35:03 06/21/19 22 06/20/2021 COMPR EHENS ISRAEL METAB OLIC PANEL sodium 141 mmol/ L 137-14 5 Not Available [facility] (Lab) [address] [place], [address], 06/20/2021 18:34:58 06/21/19 22 06/20/2021 COMPR EHENS ISRAEL METAB OLIC PANEL potassium 4.9 mmol/ L 3.5-5. 1 Not Available [facility] (Lab) [address] [place], [address], 06/20/2021 18:34:58 06/21/19 22 06/20/2021 COMPR EHENS ISRAEL METAB OLIC PANEL chloride 105 mmol/ L 98-107 Not Available [facility] (Lab) [address] [place], [address], 06/20/2021 18:34:58 06/21/19 22 06/20/2021 COMPR EHENS ISRAEL METAB OLIC PANEL carbon dioxide 29 mmol/ L 22-30 Not Available [facility] (Lab) [address] [place], [address], 06/20/2021 18:34:58 06/21/19 22 06/20/2021 COMPR EHENS ISRAEL METAB OLIC PANEL agap 11.9 mmol/ L 14-22 low Not Available [facility] (Lab) [address] [place], [address], 06/20/2021 18:34:58 06/21/19 22 06/20/2021 COMPR EHENS ISRAEL METAB OLIC PANEL glucose 108 mg/dL 70-99 high Not Available [facility] (Lab) [address] [place], [address], 06/20/2021 18:34:58 06/21/19 22 06/20/2021 COMPR EHENS ISRAEL METAB OLIC PANEL BUN 19 mg/dL 8-19 Not Available [facility] (Lab) [address] [place], [address], 06/20/2021 18:34:58 06/21/19 22 06/20/2021 COMPR EHENS ISRAEL METAB OLIC PANEL creatinine 0.60 mg/dL 0.66-1 .25 low Not Available [facility] (Lab) [address] [place], [address], 06/20/2021 18:34:58 06/21/19 22 06/20/2021 COMPR EHENS ISRAEL METAB OLIC PANEL GFR >60 Refer ence Range : Wana ge GFR Healt hy Adult : >60 mL/mi n/1.7 3 m2 Chron ic Kidne y Disea se: 15-60 mL/mi n/1.7 3 m2 Kidne y Failu re: <15/m L/min /1.73 m2 www.n iddk. nih.g ov The MDRD study equat ion has not been valid ated in child amina <18 years of age; pregn ant women ; the elder ly >85 years of age; or in some racia l or ethni c subgr oups, such as Hisdestiny nics. Outsi de the valid ated mira eters , estim ated GFR is less accur ate, requi ring clini linda judgm ent on a case- by-ca se basis . Clini ilnda inter preta tion for other races and ages must be made by the clini emmy. The MDRD study equat ion has not been valid ated for the evalu ation of serum creat inine relat ed to nutri addie l statu s or medic ation usage . For perso ns <18 years of age, a pedia tric GFR calcu lator is avail able on the [facility] websi te: https ://chastity w.blanca humphreys.o rg/pr ofess ional s/kdo qi/gf r_cal culat or Not Available [facility] (Lab) [address] [place], [address], 06/20/2021 18:34:58 06/21/19 22 06/20/2021 COMPR EHENS ISRAEL METAB OLIC PANEL alkaline phosphatase 125 U/L 38-126 Not Available [facility] (Lab) [address] [place], [address], 06/20/2021 18:34:58 06/21/19 22 06/20/2021 COMPR EHENS ISRAEL METAB OLIC PANEL alanine aminotransfe rase 13 U/L 0-35 Not Available [facility] (Lab) [address] [place], [address], 06/20/2021 18:34:58 06/21/19 22 06/20/2021 COMPR EHENS ISRAEL METAB OLIC PANEL aspartate aminotransfe rase 22 U/L 15-37 Not Available [facility] (Lab) [address] [place], [address], 06/20/2021 18:34:58 06/21/19 22 06/20/2021 COMPR EHENS ISRAEL METAB OLIC PANEL bilirubin, total 0.30 mg/dL 0.20-1 .30 Not Available [facility] (Lab) [address] [place], [address], 06/20/2021 18:34:58 06/21/19 22 06/20/2021 COMPR EHENS ISRAEL METAB OLIC PANEL calcium 9.7 mg/dL 8.4-10 .2 Not Available [facility] (Lab) [address] [place], [address], 06/20/2021 18:34:58 06/21/19 22 06/20/2021 COMPR EHENS ISRAEL METAB OLIC PANEL total protein 7.5 g/dL 6.3-8. 2 Not Available [facility] (Lab) [address] [place], [address], 06/20/2021 18:34:58 06/21/19 22 06/20/2021 COMPR EHENS ISRAEL METAB OLIC PANEL albumin 4.4 g/dL 3.0-4. 4 Not Available [facility] (Lab) [address] [place], [address], 06/20/2021 18:34:58 06/21/19 22 06/20/2021 COMPR EHENS ISRAEL METAB OLIC PANEL globulin 3.1 g/dL 2.6-4. 2 Not Available [facility] (Lab) [address] [place], [address], 06/20/2021 18:34:58 06/21/19 22 06/20/2021 COMPR EHENS ISRAEL METAB OLIC PANEL A/G ratio 1.4 ratio 1.0-2. 0 Not Available [facility] (Lab) [address] [place], [address], 06/20/2021 18:34:58 06/21/19 22 06/20/2021 CBC/C OMPLE TE BLD COUNT W/DIF F red blood cells 4.62 x10'6 /uL 3.80-5 .20 Not Available [facility] (Lab) [address] [place], [address], 06/20/2021 17:57:27 06/21/19 22 06/20/2021 CBC/C OMPLE TE BLD COUNT W/DIF F hemoglobin 14.2 g/dL 12.0-1 5.6 Not Available [facility] (Lab) [address] [place], [address], 06/20/2021 17:57:27 06/21/19 22 06/20/2021 CBC/C OMPLE TE BLD COUNT W/DIF F hematocrit 43.8 % 35.7-4 5.7 Not Available [facility] (Lab) [address] [place], [address], 06/20/2021 17:57:27 06/21/19 22 06/20/2021 CBC/C OMPLE TE BLD COUNT W/DIF F mean red cell volume 94.8 fL 82.0-9 9.0 Not Available [facility] (Lab) [address] [place], [address], 06/20/2021 17:57:27 06/21/19 22 06/20/2021 CBC/C OMPLE TE BLD COUNT W/DIF F mean red cell hemoglobin 30.7 pg 27.0-3 3.0 Not Available [facility] (Lab) [address] [place], [address], 06/20/2021 17:57:27 06/21/19 22 06/20/2021 CBC/C OMPLE TE BLD COUNT W/DIF F mean RBC HGB concentratio n 32.4 g/dL 31.0-3 6.0 Not Available [facility] (Lab) [address] [place], [address], 06/20/2021 17:57:27 06/21/19 22 06/20/2021 CBC/C OMPLE TE BLD COUNT W/DIF F red cell distribution width 13.6 % 11.8-1 5.5 Not Available [facility] (Lab) [address] [place], [address], 06/20/2021 17:57:27 06/21/19 22 06/20/2021 CBC/C OMPLE TE BLD COUNT W/DIF F platelets 245 x10'3 /uL 150-40 0 Not Available [facility] (Lab) [address] [place], [address], 06/20/2021 17:57:27 06/21/19 22 06/20/2021 CBC/C OMPLE TE BLD COUNT W/DIF F mean platelet volume 10.4 fL 9.0-12 .4 Not Available [facility] (Lab) [address] [place], [address], 06/20/2021 17:57:27 06/21/19 22 06/20/2021 CBC/C OMPLE TE BLD COUNT W/DIF F neutrophils 36.9 % 39.0-7 2.0 low Not Available [facility] (Lab) [address] [place], [address], 06/20/2021 17:57:27 06/21/19 22 06/20/2021 CBC/C OMPLE TE BLD COUNT W/DIF F lymphocytes 52.5 % 16.0-4 7.0 high Not Available [facility] (Lab) [address] [place], [address], 06/20/2021 17:57:27 06/21/19 22 06/20/2021 CBC/C OMPLE TE BLD COUNT W/DIF F monocytes 7.5 % 5.0-12 .0 Not Available [facility] (Lab) [address] [place], [address], 06/20/2021 17:57:27 06/21/19 22 06/20/2021 CBC/C OMPLE TE BLD COUNT W/DIF F eosinophils 2.6 % 1.0-7. 0 Not Available [facility] (Lab) [address] [place], [address], 06/20/2021 17:57:27 06/21/19 22 06/20/2021 CBC/C OMPLE TE BLD COUNT W/DIF F basophils 0.4 % 0.0-2. 0 Not Available [facility] (Lab) [address] [place], [address], 06/20/2021 17:57:27 06/21/19 22 06/20/2021 CBC/C OMPLE TE BLD COUNT W/DIF F immature granulocytes 0.1 % 0.00-0 .50 Not Available [facility] (Lab) [address] [place], [address], 06/20/2021 17:57:27 06/21/19 22 06/20/2021 CBC/C OMPLE TE BLD COUNT W/DIF F neutrophils, absolute count 2.95 x10'3 /uL 1.5-8. 0 Not Available [facility] (Lab) [address] [place], [address], 06/20/2021 17:57:27 06/21/19 22 06/20/2021 CBC/C OMPLE TE BLD COUNT W/DIF F lymphocytes, absolute count 4.20 x10'3 /uL 1.07-3 .43 high Not Available [facility] (Lab) [address] [place], [address], 06/20/2021 17:57:27 06/21/19 22 06/20/2021 CBC/C OMPLE TE BLD COUNT W/DIF F monocytes, absolute count 0.60 x10'3 /uL 0.29-0 .99 Not Available [facility] (Lab) [address] [place], [address], 06/20/2021 17:57:27 06/21/19 22 06/20/2021 CBC/C OMPLE TE BLD COUNT W/DIF F eosinophils, absolute count 0.21 x10'3 /uL 0.02-0 .53 Not Available [facility] (Lab) [address] [place], [address], 06/20/2021 17:57:27 06/21/19 22 06/20/2021 CBC/C OMPLE TE BLD COUNT W/DIF F basophils, absolute count 0.03 x10'3 /uL 0.01-0 .08 Not Available [facility] (Lab) [address] [place], [address], 06/20/2021 17:57:27 06/21/19 22 06/20/2021 CBC/C OMPLE TE BLD COUNT W/DIF F immature granulocytes ,absolute 0.01 x10'3 /uL 0.00-0 .05 Not Available [facility] (Lab) [address] [place], [address], 06/20/2021 17:57:27 06/21/19 22 06/20/2021 CBC/C OMPLE TE BLD COUNT W/DIF F nucleated red blood cells 0.0 % -0 Not Available [facility] (Lab) [address] [place], [address], 06/20/2021 17:57:27 06/21/19 22 06/20/2021 CBC/C OMPLE TE BLD COUNT W/DIF F NRBC# 0.00 x10'3 /uL Not Available [facility] (Lab) [address] [place], [address], 06/20/2021 17:57:27 06/21/19 22 06/20/2021 CBC/C OMPLE TE BLD COUNT W/DIF F white blood cells 8.0 x10'3 /uL 4.2-10 .8 Not Available [facility] (Lab) [address] [place], [address], 06/20/2021 17:57:27 01/19/2001/18/2022 VITAM IN D 25-HY DROXY [id number] 22.6 NG/mL 30-100 low Vitam in D Statu s: Defic ient: <20 ng/mL Insuf ficie nt: 20-29 ng/mL Suffi cient : 30-10 0 ng/mL Not Available [facility] (Lab) [address] [place], [address], 01/18/2022 13:20:43 01/19/2001/18/2022 LIPID PANEL cholesterol 188 mg/dL 140-19 9 NIH GISEL NSUS RECOM MENDA TION FOR LION STERO L: ADULT CHILD LOW RISK: <200 <170 BORDE RLINE : <200- 239 ----- HIGH RISK: >240 >200 Not Available [facility] (Lab) [address] [place], [address], 01/18/2022 13:08:44 01/19/2001/18/2022 LIPID PANEL triglyceride s 184 mg/dL 0-150 high NIH GISEL NSUS REPOR T RECOM MENDA TION FOR TRIGL YCERI RUBIO: ADULT CHILD LOW RISK: <150 ----- BODER LINE: 150-1 99 ----- HIGH RISK: >200 ----- Not Available [facility] (Lab) [address] [place], [address], 01/18/2022 13:08:44 01/19/2001/18/2022 LIPID PANEL HDL cholesterol 54 mg/dL 40- Not Available [facility] (Lab) [address] [place], [address], 01/18/2022 13:08:44 01/19/20 22 01/18/2022 LIPID PANEL LDL cholesterol, calculated 97 mg/dL 0-130 NIH GISEL NSUS REPOR T RECOM MENDA TIONS FOR LDL: ADULT CHILD LOW RISK <130 <110 (OPTI MAL LDL) <100 ----- BORDE RLINE : 130-1 59 ----- HIGH RISK: >160 >130 A TRIGL YCERI DE RESUL T >400 INVAL IDATE S THE CALCU LATIO N FOR LDL FRACT IONAT ION - THE LDL RESUL T WILL NOT BE REPOR MERRILL. Not Available [facility] (Lab) [address] [place], [address], 01/18/2022 13:08:44 01/19/2001/18/2022 COMPR EHENS ISRAEL METAB OLIC PANEL sodium 139 mmol/ L 137-14 5 Not Available [facility] (Lab) [address] [place], [address], 01/18/2022 13:08:37 01/19/2001/18/2022 COMPR EHENS ISRAEL METAB OLIC PANEL potassium 4.1 mmol/ L 3.5-5. 1 Not Available [facility] (Lab) [address] [place], [address], 01/18/2022 13:08:37 01/19/2001/18/2022 COMPR EHENS ISRAEL METAB OLIC PANEL chloride 102 mmol/ L 98-107 Not Available [facility] (Lab) [address] [place], [address], 01/18/2022 13:08:37 01/19/2001/18/2022 COMPR EHENS ISRAEL METAB OLIC PANEL carbon dioxide 31 mmol/ L 22-30 high Not Available [facility] (Lab) [address] [place], [address], 01/18/2022 13:08:37 01/19/20 22 01/18/2022 COMPR EHENS ISRAEL METAB OLIC PANEL anion gap 10.1 mmol/ L 14-22 low Not Available [facility] (Lab) [address] [place], [address], 01/18/2022 13:08:37 01/19/20 22 01/18/2022 COMPR EHENS ISRAEL METAB OLIC PANEL glucose 99 mg/dL 70-99 Not Available [facility] (Lab) [address] [facility] [place], [address], 01/18/2022 13:08:37 01/19/20 22 01/18/2022 COMPR EHENS ISRAEL METAB OLIC PANEL BUN 11 mg/dL 8-19 Not Available [facility] (Lab) [address] [facility] [place], [address], 01/18/2022 13:08:37 01/19/20 22 01/18/2022 COMPR EHENS ISRAEL METAB OLIC PANEL creatinine 0.67 mg/dL 0.66-1 .25 Not Available [facility] (Lab) [address] [place], [address], 01/18/2022 13:08:37 01/19/20 22 01/18/2022 COMPR EHENS ISRAEL METAB OLIC PANEL GFR >60 Refer ence Range : Wana ge GFR Healt hy Adult : >60 mL/mi n/1.7 3 m2 Chron ic Kidne y Disea se: 15-60 mL/mi n/1.7 3 m2 Kidne y Failu re: <15/m L/min /1.73 m2 www.n iddk. nih.g ov The MDRD study equat ion has not been valid ated in child amina <18 years of age; pregn ant women ; the elder ly >85 years of age; or in some racia l or ethni c subgr oups, such as Hispa nics. Outsi de the valid ated mira eters , estim ated GFR is less accur ate, requi ring clini linda judgm ent on a case- by-ca se basis . Clini linda inter preta tion for other races and ages must be made by the clini emmy. The MDRD study equat ion has not been valid ated for the evalu ation of serum creat inine relat ed to nutri addie l statu s or medic ation usage . For perso ns <18 years of age, a pedia tric GFR calcu lator is avail able on the [facility] websi te: https ://chastity humphreys.o alysa/pr ofess ional s/kdo qi/gf r_cal culat or Not Available [facility] (Lab) [address] [place], [address], 01/18/2022 13:08:37 01/19/2001/18/2022 COMPR EHENS ISRAEL METAB OLIC PANEL alkaline phosphatase 141 U/L 38-126 high Not Available [facility] (Lab) [address] [place], [address], 01/18/2022 13:08:37 01/19/20 22 01/18/2022 COMPR EHENS ISRAEL METAB OLIC PANEL alanine aminotransfe rase 15 U/L 0-35 Not Available [facility] (Lab) [address] [place], [address], 01/18/2022 13:08:37 01/19/2001/18/2022 COMPR EHENS ISRAEL METAB OLIC PANEL aspartate aminotransfe rase 24 U/L 15-37 Not Available [facility] (Lab) [address] [place], [address], 01/18/2022 13:08:37 01/19/2001/18/2022 COMPR EHENS ISRAEL METAB OLIC PANEL bilirubin, total 0.70 mg/dL 0.20-1 .30 Not Available [facility] (Lab) [address] [place], [address], 01/18/2022 13:08:37 01/19/20 22 01/18/2022 COMPR EHENS ISRAEL METAB OLIC PANEL calcium 10.0 mg/dL 8.4-10 .2 Not Available [facility] (Lab) [address] [place], [address], 01/18/2022 13:08:37 01/19/20 22 01/18/2022 COMPR EHENS ISRAEL METAB OLIC PANEL total protein 7.8 g/dL 6.3-8. 2 Not Available [facility] (Lab) [address] [place], [address], 01/18/2022 13:08:37 01/19/20 22 01/18/2022 COMPR EHENS ISRAEL METAB OLIC PANEL albumin 4.5 g/dL 3.0-4. 4 high Not Available [facility] (Lab) [address] [facility] [place], [address], 01/18/2022 13:08:37 01/19/20 22 01/18/2022 COMPR EHENS ISRAEL METAB OLIC PANEL globulin 3.3 g/dL 2.6-4. 2 Not Available [facility] (Lab) [address] [place], [address], 01/18/2022 13:08:37 01/19/2001/18/2022 COMPR EHENS ISRAEL METAB OLIC PANEL A/G ratio 1.4 ratio 1.0-2. 0 Not Available [facility] (Lab) [address] [place], [address], 01/18/2022 13:08:37 01/19/20 22 01/18/2022 CBC/C OMPLE TE BLD COUNT W/DIF F white blood cells 8.4 x10'3 /uL 4.2-10 .8 Not Available [facility] (Lab) [address] [place], [address], 01/18/2022 13:01:37 01/19/20 22 01/18/2022 CBC/C OMPLE TE BLD COUNT W/DIF F red blood cells 4.80 x10'6 /uL 3.80-5 .20 Not Available [facility] (Lab) [address] [place], [address], 01/18/2022 13:01:37 01/19/20 22 01/18/2022 CBC/C OMPLE TE BLD COUNT W/DIF F hemoglobin 14.4 g/dL 12.0-1 5.6 Not Available [facility] (Lab) [address] [place], [address], 01/18/2022 13:01:37 01/19/2001/18/2022 CBC/C OMPLE TE BLD COUNT W/DIF F hematocrit 44.9 % 35.7-4 5.7 Not Available [facility] (Lab) [address] [place], [address], 01/18/2022 13:01:37 01/19/2001/18/2022 CBC/C OMPLE TE BLD COUNT W/DIF F mean red cell volume 93.5 fL 82.0-9 9.0 Not Available [facility] (Lab) [address] [place], [address], 01/18/2022 13:01:37 01/19/20 22 01/18/2022 CBC/C OMPLE TE BLD COUNT W/DIF F mean red cell hemoglobin 30.0 pg 27.0-3 3.0 Not Available [facility] (Lab) [address] [place], [address], 01/18/2022 13:01:37 01/19/20 22 01/18/2022 CBC/C OMPLE TE BLD COUNT W/DIF F mean RBC HGB concentratio n 32.1 g/dL 31.0-3 6.0 Not Available [facility] (Lab) [address] [place], [address], 01/18/2022 13:01:37 01/19/20 22 01/18/2022 CBC/C OMPLE TE BLD COUNT W/DIF F red cell distribution width 13.7 % 11.8-1 5.5 Not Available [facility] (Lab) [address] [place], [address], 01/18/2022 13:01:37 01/19/2001/18/2022 CBC/C OMPLE TE BLD COUNT W/DIF F platelets 285 x10'3 /uL 150-40 0 Not Available [facility] (Lab) [address] [place], [address], 01/18/2022 13:01:37 01/19/20 22 01/18/2022 CBC/C OMPLE TE BLD COUNT W/DIF F mean platelet volume 10.5 fL 9.0-12 .4 Not Available [facility] (Lab) [address] [place], [address], 01/18/2022 13:01:37 01/19/2001/18/2022 CBC/C OMPLE TE BLD COUNT W/DIF F neutrophils 49.6 % 39.0-7 2.0 Not Available [facility] (Lab) [address] [place], [address], 01/18/2022 13:01:37 01/19/20 22 01/18/2022 CBC/C OMPLE TE BLD COUNT W/DIF F lymphocytes 40.7 % 16.0-4 7.0 Not Available [facility] (Lab) [address] [place], [address], 01/18/2022 13:01:37 01/19/2001/18/2022 CBC/C OMPLE TE BLD COUNT W/DIF F monocytes 6.6 % 5.0-12 .0 Not Available [facility] (Lab) [address] [place], [address], 01/18/2022 13:01:37 01/19/20 22 01/18/2022 CBC/C OMPLE TE BLD COUNT W/DIF F eosinophils 2.4 % 1.0-7. 0 Not Available [facility] (Lab) [address] [place], [address], 01/18/2022 13:01:37 01/19/2001/18/2022 CBC/C OMPLE TE BLD COUNT W/DIF F basophils 0.5 % 0.0-2. 0 Not Available [facility] (Lab) [address] [place], [address], 01/18/2022 13:01:37 01/19/2001/18/2022 CBC/C OMPLE TE BLD COUNT W/DIF F immature granulocytes 0.2 % 0.00-0 .50 Not Available [facility] (Lab) [address] [place], [address], 01/18/2022 13:01:37 01/19/2001/18/2022 CBC/C OMPLE TE BLD COUNT W/DIF F neutrophils, absolute count 4.16 x10'3 /uL 1.5-8. 0 Not Available [facility] (Lab) [address] [place], [address], 01/18/2022 13:01:37 01/19/20 22 01/18/2022 CBC/C OMPLE TE BLD COUNT W/DIF F lymphocytes, absolute count 3.41 x10'3 /uL 1.07-3 .43 Not Available [facility] (Lab) [address] [place], [address], 01/18/2022 13:01:37 01/19/20 22 01/18/2022 CBC/C OMPLE TE BLD COUNT W/DIF F monocytes, absolute count 0.55 x10'3 /uL 0.29-0 .99 Not Available [facility] (Lab) [address] [place], [address], 01/18/2022 13:01:37 01/19/20 22 01/18/2022 CBC/C OMPLE TE BLD COUNT W/DIF F eosinophils, absolute count 0.20 x10'3 /uL 0.02-0 .53 Not Available [facility] (Lab) [address] [place], [address], 01/18/2022 13:01:37 01/19/20 22 01/18/2022 CBC/C OMPLE TE BLD COUNT W/DIF F basophils, absolute count 0.04 x10'3 /uL 0.01-0 .08 Not Available [facility] (Lab) [address] [place], [address], 01/18/2022 13:01:37 01/19/2001/18/2022 CBC/C OMPLE TE BLD COUNT W/DIF F immature granulocytes ,absolute 0.02 x10'3 /uL 0.00-0 .05 Not Available [facility] (Lab) [address] [place], [address], 01/18/2022 13:01:37 01/19/20 22 01/18/2022 CBC/C OMPLE TE BLD COUNT W/DIF F nucleated red blood cells 0.0 % -0 Not Available [facility] (Lab) [address] [place], [address], 01/18/2022 13:01:37 01/19/20 22 01/18/2022 CBC/C OMPLE TE BLD COUNT W/DIF F NRBC# 0.00 x10'3 /uL Not Available [facility] (Lab) [address] [place], [address], 01/18/2022 13:01:37 10/08/19 23 10/07/2022 CBC/C OMPLE TE BLD COUNT W/DIF F white blood cells 7.3 x10'3 /uL 4.2-10 .8 Not Available [facility] (Lab) [address] [place], [address], 10/07/2022 12:50:50 10/08/19 23 10/07/2022 CBC/C OMPLE TE BLD COUNT W/DIF F red blood cells 4.80 x10'6 /uL 3.80-5 .20 Not Available [facility] (Lab) [address] [place], [address], 10/07/2022 12:50:50 10/08/19 23 10/07/2022 CBC/C OMPLE TE BLD COUNT W/DIF F hemoglobin 14.7 g/dL 12.0-1 5.6 Not Available [facility] (Lab) [address] [facility] [place], [address], 10/07/2022 12:50:50 10/08/19 23 10/07/2022 CBC/C OMPLE TE BLD COUNT W/DIF F hematocrit 44.5 % 35.7-4 5.7 Not Available [facility] (Lab) [address] [place], [address], 10/07/2022 12:50:50 10/08/19 23 10/07/2022 CBC/C OMPLE TE BLD COUNT W/DIF F mean red cell volume 92.7 fL 82.0-9 9.0 Not Available [facility] (Lab) [address] [place], [address], 10/07/2022 12:50:50 10/08/19 23 10/07/2022 CBC/C OMPLE TE BLD COUNT W/DIF F mean red cell hemoglobin 30.6 pg 27.0-3 3.0 Not Available [facility] (Lab) [address] [place], [address], 10/07/2022 12:50:50 10/08/19 23 10/07/2022 CBC/C OMPLE TE BLD COUNT W/DIF F mean RBC HGB concentratio n 33.0 g/dL 31.0-3 6.0 Not Available [facility] (Lab) [address] [place], [address], 10/07/2022 12:50:50 10/08/19 23 10/07/2022 CBC/C OMPLE TE BLD COUNT W/DIF F red cell distribution width 13.6 % 11.8-1 5.5 Not Available [facility] (Lab) [address] [place], [address], 10/07/2022 12:50:50 10/08/19 23 10/07/2022 CBC/C OMPLE TE BLD COUNT W/DIF F platelets 232 x10'3 /uL 150-40 0 Not Available [facility] (Lab) [address] [place], [address], 10/07/2022 12:50:50 10/08/19 23 10/07/2022 CBC/C OMPLE TE BLD COUNT W/DIF F mean platelet volume 10.3 fL 9.0-12 .4 Not Available [facility] (Lab) [address] [place], [address], 10/07/2022 12:50:50 10/08/19 23 10/07/2022 CBC/C OMPLE TE BLD COUNT W/DIF F neutrophils 43.7 % 39.0-7 2.0 Not Available [facility] (Lab) [address] [place], [address], 10/07/2022 12:50:50 10/08/19 23 10/07/2022 CBC/C OMPLE TE BLD COUNT W/DIF F lymphocytes 45.5 % 16.0-4 7.0 Not Available [facility] (Lab) [address] [place], [address], 10/07/2022 12:50:50 10/08/19 23 10/07/2022 CBC/C OMPLE TE BLD COUNT W/DIF F monocytes 7.3 % 5.0-12 .0 Not Available [facility] (Lab) [address] [place], [address], 10/07/2022 12:50:50 10/08/19 23 10/07/2022 CBC/C OMPLE TE BLD COUNT W/DIF F eosinophils 2.5 % 1.0-7. 0 Not Available [facility] (Lab) [address] [place], [address], 10/07/2022 12:50:50 10/08/19 23 10/07/2022 CBC/C OMPLE TE BLD COUNT W/DIF F basophils 0.7 % 0.0-2. 0 Not Available [facility] (Lab) [address] [place], [address], 10/07/2022 12:50:50 10/08/19 23 10/07/2022 CBC/C OMPLE TE BLD COUNT W/DIF F immature granulocytes 0.3 % 0.00-0 .50 Not Available [facility] (Lab) [address] [place], [address], 10/07/2022 12:50:50 10/08/19 23 10/07/2022 CBC/C OMPLE TE BLD COUNT W/DIF F neutrophils, absolute count 3.18 x10'3 /uL 1.5-8. 0 Not Available [facility] (Lab) [address] [place], [address], 10/07/2022 12:50:50 10/08/19 23 10/07/2022 CBC/C OMPLE TE BLD COUNT W/DIF F lymphocytes, absolute count 3.30 x10'3 /uL 1.07-3 .43 Not Available [facility] (Lab) [address] [place], [address], 10/07/2022 12:50:50 10/08/19 23 10/07/2022 CBC/C OMPLE TE BLD COUNT W/DIF F monocytes, absolute count 0.53 x10'3 /uL 0.29-0 .99 Not Available [facility] (Lab) [address] [place], [address], 10/07/2022 12:50:50 10/08/19 23 10/07/2022 CBC/C OMPLE TE BLD COUNT W/DIF F eosinophils, absolute count 0.18 x10'3 /uL 0.02-0 .53 Not Available [facility] (Lab) [address] [place], [address], 10/07/2022 12:50:50 10/08/19 23 10/07/2022 CBC/C OMPLE TE BLD COUNT W/DIF F basophils, absolute count 0.05 x10'3 /uL 0.01-0 .08 Not Available [facility] (Lab) [address] [place], [address], 10/07/2022 12:50:50 10/08/19 23 10/07/2022 CBC/C OMPLE TE BLD COUNT W/DIF F immature granulocytes ,absolute 0.02 x10'3 /uL 0.00-0 .05 Not Available [facility] (Lab) [address] [place], [address], 10/07/2022 12:50:50 10/08/19 23 10/07/2022 CBC/C OMPLE TE BLD COUNT W/DIF F nucleated red blood cells 0.0 % -0 Not Available [facility] (Lab) [address] [place], [address], 10/07/2022 12:50:50 10/08/19 23 10/07/2022 CBC/C OMPLE TE BLD COUNT W/DIF F NRBC# 0.00 x10'3 /uL Not Available [facility] (Lab) [address] [place], [address], 10/07/2022 12:50:50 10/08/19 23 10/07/2022 LIPID PANEL cholesterol 160 mg/dL 140-19 9 NIH GISEL NSUS RECOM MENDA TION FOR LION STERO L: ADULT CHILD LOW RISK: <200 <170 BORDE RLINE : <200- 239 ----- HIGH RISK: >240 >200 Not Available [facility] (Lab) [address] [place], [address], 10/07/2022 13:19:34 10/08/19 23 10/07/2022 LIPID PANEL triglyceride s 215 mg/dL 0-150 high NIH GISEL NSUS REPOR T RECOM MENDA TION FOR TRIGL YCERI RUBIO: ADULT CHILD LOW RISK: <150 ----- BODER LINE: 150-1 99 ----- HIGH RISK: >200 ----- Not Available [facility] (Lab) [address] [place], [address], 10/07/2022 13:19:34 10/08/19 23 10/07/2022 LIPID PANEL HDL cholesterol 45 mg/dL 40- Not Available [facility] (Lab) [address] [place], [address], 10/07/2022 13:19:34 10/08/19 23 10/07/2022 LIPID PANEL LDL cholesterol, calculated 72 mg/dL 0-130 NIH GISEL NSUS REPOR T RECOM MENDA TIONS FOR LDL: ADULT CHILD LOW RISK <130 <110 (OPTI MAL LDL) <100 ----- BORDE RLINE : 130-1 59 ----- HIGH RISK: >160 >130 A TRIGL YCERI DE RESUL T >400 INVAL IDATE S THE CALCU LATIO N FOR LDL FRACT IONAT ION - THE LDL RESUL T WILL NOT BE REPOR MERRILL. Not Available [facility] (Lab) [address] [place], [address], 10/07/2022 13:19:34 10/08/19 23 10/07/2022 COMPR EHENS ISRAEL METAB OLIC PANEL sodium 142 mmol/ L 137-14 5 Not Available [facility] (Lab) [address] [place], [address], 10/07/2022 13:19:43 10/08/19 23 10/07/2022 COMPR EHENS ISRAEL METAB OLIC PANEL potassium 4.9 mmol/ L 3.5-5. 1 Not Available [facility] (Lab) [address] [place], [address], 10/07/2022 13:19:43 10/08/19 23 10/07/2022 COMPR EHENS ISRAEL METAB OLIC PANEL chloride 106 mmol/ L 98-107 Not Available [facility] (Lab) [address] [facility] [place], [address], 10/07/2022 13:19:43 10/08/19 23 10/07/2022 COMPR EHENS ISRAEL METAB OLIC PANEL carbon dioxide 29 mmol/ L 22-30 Not Available [facility] (Lab) [address] [place], [address], 10/07/2022 13:19:43 10/08/19 23 10/07/2022 COMPR EHENS ISRAEL METAB OLIC PANEL anion gap 11.9 mmol/ L 14-22 low Not Available [facility] (Lab) [address] [place], [address], 10/07/2022 13:19:43 10/08/19 23 10/07/2022 COMPR EHENS ISRAEL METAB OLIC PANEL glucose 94 mg/dL 70-99 Not Available [facility] (Lab) [address] [place], [address], 10/07/2022 13:19:43 10/08/19 23 10/07/2022 COMPR EHENS ISRAEL METAB OLIC PANEL BUN 12 mg/dL 8-19 Not Available [facility] (Lab) [address] [place], [address], 10/07/2022 13:19:43 10/08/19 23 10/07/2022 COMPR EHENS ISRAEL METAB OLIC PANEL creatinine 0.61 mg/dL 0.66-1 .25 low Not Available [facility] (Lab) [address] [place], [address], 10/07/2022 13:19:43 10/08/19 23 10/07/2022 COMPR EHENS ISRAEL METAB OLIC PANEL GFR >60 Refer ence Range : Wana ge GFR Healt hy Adult : >60 mL/mi n/1.7 3 m2 Chron ic Kidne y Disea se: 15-60 mL/mi n/1.7 3 m2 Kidne y Failu re: <15/m L/min /1.73 m2 www.n iddk. nih.g ov The MDRD study equat ion has not been valid ated in child amina <18 years of age; pregn ant women ; the elder ly >85 years of age; or in some racia l or ethni c subgr oups, such as Hispa nics. Outsi de the valid ated mira eters , estim ated GFR is less accur ate, requi ring clini linda judgm ent on a case- by-ca se basis . Clini linda inter preta tion for other races and ages must be made by the clini emmy. The MDRD study equat ion has not been valid ated for the evalu ation of serum creat inine relat ed to nutri addie l statu s or medic ation usage . For perso ns <18 years of age, a pedia tric GFR calcu lator is avail able on the [facility] websi te: https ://chastity humphreys.lucas watt/pr ofess ional s/kdo qi/gf r_cal culat or Not Available [facility] (Lab) [address] [place], [address], 10/07/2022 13:19:43 10/08/1910/07/2022 COMPR EHENS ISRAEL METAB OLIC PANEL alkaline phosphatase 96 U/L 38-126 Not Available [facility] (Lab) [address] [place], [address], 10/07/2022 13:19:43 10/08/19 23 10/07/2022 COMPR EHENS ISRAEL METAB OLIC PANEL alanine aminotransfe rase 19 U/L 0-35 Not Available [facility] (Lab) [address] [place], [address], 10/07/2022 13:19:43 10/08/19 23 10/07/2022 COMPR EHENS ISRAEL METAB OLIC PANEL aspartate aminotransfe rase 27 U/L 15-37 Not Available [facility] (Lab) [address] [place], [address], 10/07/2022 13:19:43 10/08/19 23 10/07/2022 COMPR EHENS ISRAEL METAB OLIC PANEL bilirubin, total 0.40 mg/dL 0.20-1 .30 Not Available [facility] (Lab) [address] [place], [address], 10/07/2022 13:19:43 10/08/19 23 10/07/2022 COMPR EHENS ISRAEL METAB OLIC PANEL calcium 9.6 mg/dL 8.4-10 .2 Not Available [facility] (Lab) [address] [facility] [place], [address], 10/07/2022 13:19:43 10/08/19 23 10/07/2022 COMPR EHENS ISRAEL METAB OLIC PANEL total protein 7.4 g/dL 6.3-8. 2 Not Available [facility] (Lab) [address] [place], [address], 10/07/2022 13:19:43 10/08/19 23 10/07/2022 COMPR EHENS ISRAEL METAB OLIC PANEL albumin 4.2 g/dL 3.0-4. 4 Not Available [facility] (Lab) [address] [place], [address], 10/07/2022 13:19:43 10/08/19 23 10/07/2022 COMPR EHENS ISRAEL METAB OLIC PANEL globulin 3.2 g/dL 2.6-4. 2 Not Available [facility] (Lab) [address] [place], [address], 10/07/2022 13:19:43 10/08/19 23 10/07/2022 COMPR EHENS ISRAEL METAB OLIC PANEL A/G ratio 1.3 ratio 1.0-2. 0 Not Available [facility] (Lab) [address] [place], [address], 10/07/2022 13:19:43 02/04/20 23 02/03/2023 CBC/C OMPLE TE BLD COUNT W/DIF F white blood cells 7.7 x10'3 /uL 4.2-10 .8 Not Available [facility] (Lab) [address] [place], [address], 02/03/2023 13:49:30 02/04/2002/03/2023 CBC/C OMPLE TE BLD COUNT W/DIF F red blood cells 4.59 x10'6 /uL 3.80-5 .20 Not Available [facility] (Lab) [address] [place], [address], 02/03/2023 13:49:30 02/04/2002/03/2023 CBC/C OMPLE TE BLD COUNT W/DIF F hemoglobin 14.1 g/dL 12.0-1 5.6 Not Available [facility] (Lab) [address] [place], [address], 02/03/2023 13:49:30 02/04/20 23 02/03/2023 CBC/C OMPLE TE BLD COUNT W/DIF F hematocrit 42.9 % 35.7-4 5.7 Not Available [facility] (Lab) [address] [place], [address], 02/03/2023 13:49:30 02/04/20 23 02/03/2023 CBC/C OMPLE TE BLD COUNT W/DIF F mean red cell volume 93.5 fL 82.0-9 9.0 Not Available [facility] (Lab) [address] [place], [address], 02/03/2023 13:49:30 02/04/2002/03/2023 CBC/C OMPLE TE BLD COUNT W/DIF F mean red cell hemoglobin 30.7 pg 27.0-3 3.0 Not Available [facility] (Lab) [address] [facility] [place], [address], 02/03/2023 13:49:30 02/04/2002/03/2023 CBC/C OMPLE TE BLD COUNT W/DIF F mean RBC HGB concentratio n 32.9 g/dL 31.0-3 6.0 Not Available [facility] (Lab) [address] [place], [address], 02/03/2023 13:49:30 02/04/2002/03/2023 CBC/C OMPLE TE BLD COUNT W/DIF F red cell distribution width 13.3 % 11.8-1 5.5 Not Available [facility] (Lab) [address] [place], [address], 02/03/2023 13:49:30 02/04/2002/03/2023 CBC/C OMPLE TE BLD COUNT W/DIF F platelets 233 x10'3 /uL 150-40 0 Not Available [facility] (Lab) [address] [place], [address], 02/03/2023 13:49:30 02/04/20 23 02/03/2023 CBC/C OMPLE TE BLD COUNT W/DIF F mean platelet volume 11.6 fL 9.0-12 .4 Not Available [facility] (Lab) [address] [place], [address], 02/03/2023 13:49:30 02/04/2002/03/2023 CBC/C OMPLE TE BLD COUNT W/DIF F neutrophils 43.3 % 39.0-7 2.0 Not Available [facility] (Lab) [address] [place], [address], 02/03/2023 13:49:30 02/04/2002/03/2023 CBC/C OMPLE TE BLD COUNT W/DIF F lymphocytes 47.4 % 16.0-4 7.0 high Not Available [facility] (Lab) [address] [place], [address], 02/03/2023 13:49:30 02/04/2002/03/2023 CBC/C OMPLE TE BLD COUNT W/DIF F monocytes 6.0 % 5.0-12 .0 Not Available [facility] (Lab) [address] [place], [address], 02/03/2023 13:49:30 02/04/2002/03/2023 CBC/C OMPLE TE BLD COUNT W/DIF F eosinophils 2.5 % 1.0-7. 0 Not Available [facility] (Lab) [address] [place], [address], 02/03/2023 13:49:30 02/04/2002/03/2023 CBC/C OMPLE TE BLD COUNT W/DIF F basophils 0.5 % 0.0-2. 0 Not Available [facility] (Lab) [address] [place], [address], 02/03/2023 13:49:30 02/04/2002/03/2023 CBC/C OMPLE TE BLD COUNT W/DIF F immature granulocytes 0.3 % 0.00-0 .50 Not Available [facility] (Lab) [address] [place], [address], 02/03/2023 13:49:30 02/04/2002/03/2023 CBC/C OMPLE TE BLD COUNT W/DIF F neutrophils, absolute count 3.32 x10'3 /uL 1.5-8. 0 Not Available [facility] (Lab) [address] [facility] [place], [address], 02/03/2023 13:49:30 02/04/20 23 02/03/2023 CBC/C OMPLE TE BLD COUNT W/DIF F lymphocytes, absolute count 3.63 x10'3 /uL 1.07-3 .43 high Not Available [facility] (Lab) [address] [facility] [place], [address], 02/03/2023 13:49:30 02/04/20 23 02/03/2023 CBC/C OMPLE TE BLD COUNT W/DIF F monocytes, absolute count 0.46 x10'3 /uL 0.29-0 .99 Not Available [facility] (Lab) [address] [place], [address], 02/03/2023 13:49:30 02/04/20 23 02/03/2023 CBC/C OMPLE TE BLD COUNT W/DIF F eosinophils, absolute count 0.19 x10'3 /uL 0.02-0 .53 Not Available [facility] (Lab) [address] [place], [address], 02/03/2023 13:49:30 02/04/2002/03/2023 CBC/C OMPLE TE BLD COUNT W/DIF F basophils, absolute count 0.04 x10'3 /uL 0.01-0 .08 Not Available [facility] (Lab) [address] [place], [address], 02/03/2023 13:49:30 02/04/20 23 02/03/2023 CBC/C OMPLE TE BLD COUNT W/DIF F immature granulocytes ,absolute 0.02 x10'3 /uL 0.00-0 .05 Not Available [facility] (Lab) [address] [place], [address], 02/03/2023 13:49:30 02/04/2002/03/2023 CBC/C OMPLE TE BLD COUNT W/DIF F nucleated red blood cells 0.0 % -0 Not Available [facility] (Lab) [address] [facility] [place], [address], 02/03/2023 13:49:30 02/04/20 23 02/03/2023 CBC/C OMPLE TE BLD COUNT W/DIF F NRBC# 0.00 x10'3 /uL Not Available [facility] (Lab) [address] [place], [address], 02/03/2023 13:49:30 02/04/2002/03/2023 MAGNE SIUM magnesium 2.2 mg/dL 1.6-2. 3 Not Available [facility] (Lab) [address] [place], [address], 02/03/2023 14:33:47 02/04/2002/03/2023 COMPR EHENS ISRAEL METAB OLIC PANEL sodium 138 mmol/ L 137-14 5 Not Available [facility] (Lab) [address] [place], [address], 02/03/2023 14:33:58 02/04/2002/03/2023 COMPR EHENS ISRAEL METAB OLIC PANEL potassium 4.1 mmol/ L 3.5-5. 1 Not Available [facility] (Lab) [address] [place], [address], 02/03/2023 14:33:58 02/04/2002/03/2023 COMPR EHENS ISRAEL METAB OLIC PANEL chloride 102 mmol/ L 98-107 Not Available [facility] (Lab) [address] [place], [address], 02/03/2023 14:33:58 02/04/20 23 02/03/2023 COMPR EHENS ISRAEL METAB OLIC PANEL carbon dioxide 31 mmol/ L 22-30 high Not Available [facility] (Lab) [address] [place], [address], 02/03/2023 14:33:58 02/04/20 23 02/03/2023 COMPR EHENS ISRAEL METAB OLIC PANEL anion gap 9.1 mmol/ L 14-22 low Not Available [facility] (Lab) [address] [place], [address], 02/03/2023 14:33:58 02/04/20 23 02/03/2023 COMPR EHENS ISRAEL METAB OLIC PANEL glucose 95 mg/dL 70-99 Not Available [facility] (Lab) [address] [place], [address], 02/03/2023 14:33:58 02/04/20 23 02/03/2023 COMPR EHENS ISRAEL METAB OLIC PANEL BUN 15 mg/dL 8-19 Not Available [facility] (Lab) [address] [place], [address], 02/03/2023 14:33:58 02/04/20 23 02/03/2023 COMPR EHENS ISRAEL METAB OLIC PANEL creatinine 0.61 mg/dL 0.66-1 .25 low Not Available [facility] (Lab) [address] [place], [address], 02/03/2023 14:33:58 02/04/20 23 02/03/2023 COMPR EHENS ISRAEL METAB OLIC PANEL GFR >60 Refer ence Range : Wana ge GFR Healt hy Adult : >60 mL/mi n/1.7 3 m2 Chron ic Kidne y Disea se: 15-60 mL/mi n/1.7 3 m2 Kidne y Failu re: <15/m L/min /1.73 m2 www.n iddk. nih.g ov The MDRD study equat ion has not been valid ated in child amina <18 years of age; pregn ant women ; the elder ly >85 years of age; or in some racia l or ethni c subgr oups, such as Hispa nics. Outsi de the valid ated mira eters , estim ated GFR is less accur ate, requi ring clini linda judgm ent on a case- by-ca se basis . Clini linda inter preta tion for other races and ages must be made by the clini emmy. The MDRD study equat ion has not been valid ated for the evalu ation of serum creat inine relat ed to nutri addie l statu s or medic ation usage . For perso ns <18 years of age, a pedia tric GFR calcu lator is avail able on the [facility] websi te: https ://chastity w.blanca humphreys.o rg/pr ofess ional s/kdo qi/gf r_cal culat or Not Available [facility] (Lab) [address] [place], [address], 02/03/2023 14:33:58 02/04/20 23 02/03/2023 COMPR EHENS ISRAEL METAB OLIC PANEL alkaline phosphatase 107 U/L 38-126 Not Available [facility] (Lab) [address] [place], [address], 02/03/2023 14:33:58 02/04/20 23 02/03/2023 COMPR EHENS ISRAEL METAB OLIC PANEL alanine aminotransfe rase 16 U/L 0-35 Not Available [facility] (Lab) [address] [place], [address], 02/03/2023 14:33:58 02/04/20 23 02/03/2023 COMPR EHENS ISRAEL METAB OLIC PANEL aspartate aminotransfe rase 23 U/L 15-37 Not Available [facility] (Lab) [address] [place], [address], 02/03/2023 14:33:58 02/04/2002/03/2023 COMPR EHENS ISRAEL METAB OLIC PANEL bilirubin, total 0.60 mg/dL 0.20-1 .30 Not Available [facility] (Lab) [address] [place], [address], 02/03/2023 14:33:58 02/04/20 23 02/03/2023 COMPR EHENS ISRAEL METAB OLIC PANEL calcium 10.1 mg/dL 8.4-10 .2 Not Available [facility] (Lab) [address] [place], [address], 02/03/2023 14:33:58 02/04/20 23 02/03/2023 COMPR EHENS ISRAEL METAB OLIC PANEL total protein 7.3 g/dL 6.3-8. 2 Not Available [facility] (Lab) [address] [place], [address], 02/03/2023 14:33:58 02/04/20 23 02/03/2023 COMPR EHENS ISRAEL METAB OLIC PANEL albumin 4.1 g/dL 3.0-4. 4 Not Available [facility] (Lab) [address] [place], [address], 02/03/2023 14:33:58 02/04/20 23 02/03/2023 COMPR EHENS ISRAEL METAB OLIC PANEL globulin 3.2 g/dL 2.6-4. 2 Not Available [facility] (Lab) [address] [place], [address], 02/03/2023 14:33:58 02/04/20 23 02/03/2023 COMPR EHENS ISRAEL METAB OLIC PANEL A/G ratio 1.3 ratio 1.0-2. 0 Not Available [facility] (Lab) [address] [place], [address], 02/03/2023 14:33:58 02/04/20 23 02/03/2023 LIPID PANEL cholesterol 161 mg/dL 140-19 9 NIH GISEL NSUS RECOM MENDA TION FOR LION STERO L: ADULT CHILD LOW RISK: <200 <170 BORDE RLINE : <200- 239 ----- HIGH RISK: >240 >200 Not Available [facility] (Lab) [address] [place], [address], 02/03/2023 14:34:04 02/04/20 23 02/03/2023 LIPID PANEL triglyceride s 175 mg/dL 0-150 high NIH GISEL NSUS REPOR T RECOM MENDA TION FOR TRIGL YCERI RUBIO: ADULT CHILD LOW RISK: <150 ----- BODER LINE: 150-1 99 ----- HIGH RISK: >200 ----- Not Available [facility] (Lab) [address] [place], [address], 02/03/2023 14:34:04 02/04/20 23 02/03/2023 LIPID PANEL HDL cholesterol 43 mg/dL 40- Not Available [facility] (Lab) [address] [place], [address], 02/03/2023 14:34:04 02/04/20 23 02/03/2023 LIPID PANEL LDL cholesterol, calculated 83 mg/dL 0-130 NIH GISEL NSUS REPOR T RECOM MENDA TIONS FOR LDL: ADULT CHILD LOW RISK <130 <110 (OPTI MAL LDL) <100 ----- BORDE RLINE : 130-1 59 ----- HIGH RISK: >160 >130 A TRIGL YCERI DE RESUL T >400 INVAL IDATE S THE CALCU LATIO N FOR LDL FRACT IONAT ION - THE LDL RESUL T WILL NOT BE REPOR MERRILL. Not Available [facility] (Lab) [address] [place], [address], 02/03/2023 14:34:04 02/04/2002/03/2023 T4 FREE free T4 1.09 NG/dL 0.78-2 .19 Not Available [facility] (Lab) [address] [place], [address], 02/03/2023 14:40:10 02/04/20 23 02/03/2023 T3 FREE free T3 3.6 pg/mL 2.77-5 .27 Not Available [facility] (Lab) [address] [place], [address], 02/03/2023 14:40:12 02/04/20 23 02/03/2023 TSH thyroid-stim ulating hormone 1.470 uIU/m L 0.465- 4.680 Not Available [facility] (Lab) [address] [place], [address], 02/03/2023 14:51:44 10/24/19 22 10/23/2021 DEX[facility], [facility] [place] [address], [place] [id number] Patien t Name: SUNNY CURTIS Access ion #: [id number] Sex: F : 1950 0 Locati on: RAD Attend ing Physic everett: [facility]: CHRISTOPHER BLEDSOE Exam Date: 10/24/19 7:50 AM Exam Name: XR DEXA-H IPS PELVIS SPINE Admitt ing Diagno sis(es ): RADIOL OGY REPORT - FINAL EXAM: XR DEXA-H IPS PELVIS SPINE HISTOR Y: MENOPA USAL 70-yea r-old female with osteop orosis screen ing. COMPAR FABBY: None availa ble. TECHNI QUE: Dual energy x-ray of absorp tion examin ation of the bilate ral hips and lumbar spine in AP projec tion was perfor med. FINDIN GS: Lumbar Spine (L1-L4 ): The mean bone minera l densit y is 1.001 g/cm2 hydrox yapati te, correl ating with a T-scor e of -1.6. Bilate ral hips: The mean bone minera l densit y is 0.659 g/cm2 calciu m hydrox yapati te, correl ating with a T-scor e of -2.8. Page 1 of 2 [facility] Patien t Name: SUNNY CURTIS ion #: [id number] Sex: F : 1950 0 Exam Date: 10/24/19 7:50 AM Exam Name: XR DEXA-H IPS PELVIS SPINE Admitt ing Diagno sis(es ): IMPRES KAMRAN: 1. The patien t's lumbar spine T-scor e is consis tent with osteop enia. 2. The patien t's bilate ral hip T-scor e is consis tent with osteop orosis . Accord ing to the World Health Organi zation , T-scor e values greate r than -1.0 are normal , values betwee n -1.0 and -2.5 are catego rized as osteop enia, T-scor e of -2.5 or more are catego rized as osteop orosis . Create d and electr onical ly signed by: Nba gibson MD Signed Date: 10/24/19 8:33 AM (CT) Dictat ed by: Nba gibson MD (CT) (CT) Page 2 of 2 [id number] [facility] (Imaging) [address] [place], [address], 05/22/2022 05:27:26 02/04/20 elect rocar diogr am No observ ation record ed. [email or web address] [facility] [address] [facility] [address], [place], [address], 02/03/2023 12:25:01 02/04/20 23 02/03/2023 elect rocar diogr am No observ ation record ed. BARCODE Not Available 2022 12:38:48 02/27/20 23 02/26/2023 , baldo rushing id arter y No observ ation record ed. [email or web address] [facility] [address], [place], [address], 03/28/2023 22:32:16 02/28/20 23 02/26/2023 US, echoc ardio gram No observ ation record ed. [email or web address] [facility] [address], [place], [address], 03/28/2023 22:32:17 03/06/20 23 03/06/2023 NM, myoca rdial perfu kamran scan No observ ation record ed. [email or web address] [facility] [address], [place], [address], 03/28/2023 22:32:17 04/08/19 24 04/07/2023 shawn r monit or No observ ation record ed. [email or web address] [facility] [address], [place], [address], 04/21/2023 09:47:43 Result Notes None recorded. Problems Name Problem SNOMED Code Status Onset Date Resolution Date Notes Provider Name and Address Organization Details Recorded Time Irritable bowel syndrome 99143584 Active Not Available [facility] 4 18:41:56 Backache with radiating pain 329100411 Active Not Available [facility] 4 18:41:56 Insomnia 303975223 Active 2021 Not Available [facility] 4 18:41:56 Lumbar spondylosi s 049462018 Active 2018 Not Available [facility] 4 18:41:56 Gastroesop hageal reflux disease without esophagiti s 003932398 Active 2021 Not Available [facility] 4 18:41:56 Menopause present 207244997 Active Not Available [facility] 4 18:41:56 Chest pain 06465073 Completed Not Available [facility] 3 05:20:06 Sinusitis 55238416 Completed 201606/27/2017 Not Available [facility] 3 05:20:06 Dyslipidem ia 832280877 Active 2020 Not Available [facility] 4 18:41:56 Multiple bruising 510774652 Active Not Available [facility] 4 18:41:56 Osteoarthr itis 031787752 Active Not Available [facility] 4 18:41:56 Anxiety 45422620 Active 2020 Not Available [facility] 4 18:41:56 Upper respirator y infection 22517369 Active 2021 Not Available [facility] 4 18:41:56 Hyperlipid emia 91068441 Active Not Available [facility] 4 18:41:56 Essential hypertensi on 13885598 Active Not Available [facility] 4 18:41:56 Vitamin B12 deficiency (non anemic) 97660622 Active 2021 Not Available [facility] 4 18:41:56 Smoker 98101696 Active 2016 Not Available [facility] 4 18:41:56 Fatigue 17467580 Active Not Available [facility] 4 18:41:56 Abdominal pain 20506543 Active 2022 Not Available [facility] 4 18:41:56 Dizziness 867359258 Active 2022 Not Available [facility] 4 18:41:56 Palpitatio ns 03114613 Active 2022 Not Available [facility] 4 18:41:56 Problem Notes None recorded. Procedures Surgical History Date Name Laterality Status Provider Name and Address Organization Details Recorded Time 10/07 Medicare Wellness CPT Code, subsequent completed ABDIAS Ayon [place] - [facility] [place] [employer] [facility] 3 11:08:04 03/12 Colonoscopy completed Not Available [facility] 3 05:14:05 01/07 Date of Last Colonoscopy completed Not Available [facility] 3 05:14:03 08/20 Most Recent Bone Density completed Not Available [facility] 3 05:14:03 Excisions - Specify completed Not Available [facility] 3 05:14:05 Appendectomy completed Not Available [facility] 3 05:14:05 Orthopedic Surgery completed Not Available [facility] 3 05:14:05 esophagogastroduodenoscopy completed Not Available [facility] 3 05:14:05 Cholecystectomy completed Not Available [facility] 3 05:14:05 Arthroscopic Surgery completed Not Available [facility] 3 05:14:05 removal of bone scre w from bone completed Not Available [facility] 3 05:14:05 Orthopedic Surgery completed Not Available [facility] 3 05:14:05 other completed Not Available [facility] 3 05:14:05 Endoscopy completed Not Available [facility] 3 05:14:05 cardiovascular stres s testing completed Not Available [facility] 3 05:14:05 chondroplasty completed Not Available [facility] 3 05:14:05 excision of cyst completed Not Available [facility] 3 05:14:05 Colonoscopy completed Not Available [facility] 3 05:14:05 Colonoscopy completed Not Available [facility] 3 05:14:05 esophagogastroduodenoscopy completed Not Available [facility] 3 05:14:05 total knee replacement completed No t Available [facility] 3 05:14:05 Orthopedic Surgery completed Not Available [facility] 3 05:14:05 Orthopedic Surgery completed Not Available [facility] 3 05:14:05 repair of urinary bladder completed Not Available [facility] 3 05:14:05 Tonsillectomy completed Not Available [facility] 3 05:14:05 total knee replacement completed No t Available [facility] 3 05:14:05 Excisions - Specify completed Not Available [facility] 3 05:14:05 endoscopy and biopsy of upper gastrointestinal tract completed Not Available [facility] 3 05:14:05 Excisions - Specify completed Not Available [facility] 3 05:14:05 laparotomy completed Not Available [facility] 3 05:14:05 Orthopedic Surgery completed Not Available [facility] 3 05:14:05 excision of ganglion cyst completed Not Available [facility] 3 05:14:05 TVH completed Not Available [facility] 3 05:14:05 acromioplasty of shoulder completed Not Available [facility] 3 05:14:05 Arthrd ant kofi/xor al c1-c2 completed Not Available [facility] 3 05:14:05 Imaging Results None recorded. Procedure Notes None recorded. Medical Equipment None Reported. Allergies No known drug allergies Medications Name Sig Start Date Stop Date Status Note LastModified by Organization Details LastModified Time cyclobenz aprine 10 mg tablet Take 1 tablet every day by oral route at bedtime. 06/27 completed Not Available Not Available Not Available amoxicill in 500 mg capsule 06/17 completed Not Available Not Available Not Available prednison e 10 mg tablet take [id number], [id number], [id number] active Not Available Not Available No t Available doxycycli ne hyclate 100 mg capsule Take 1 capsule twice a day by oral route for 10 days. active Not Available Not Available No t Available atorvasta tin 20 mg tablet TAKE 1 TABLET BY MOUTH EVERY DAY 2022 active Not Available Not Available Not Avai lable carvedilo l 12.5 mg tablet TAKE 1 TABLET BY MOUTH TWICE A DAY active Not Available Not Available No t Available ipratropi um 0.5 mg-albute rol 3 mg (2.5 mg base)/3 mL nebulizat ion soln Inhale 3 mL 4 times a day by nebuliza tion route. 04/22 completed Not Available Not Available Not Available azithromy delfina 250 mg tablet Take by oral route.2t abs first day then 1 daily 02/11 completed Not Available Not Available Not Available ibuprofen 800 mg tablet TAKE ONE TABLET BY MOUTH THREE TIMES DAILY active Not Available Not Available No t Available tizanidin e 4 mg tablet TAKE 1 TABLET BY MOUTH EVERY 6 HOURS NEEDED FOR SPASM OR OTHER NECK DISCOMFO RT 03/28 completed Not Available Not Available Not Available benzonata te 200 mg capsule Take 1 capsule 3 times a day by oral route as needed. active Not Available Not Available No t Available hydrocodo ne 5 mg-acetam inophen 325 mg tablet TAKE 1 2 TABLETS BY MOUTH EVERY 4 6 HOURS NEEDED FOR PAIN 03/28 completed Not Available Not Available Not Available meloxicam 15 mg tablet TAKE 1 TABLET BY MOUTH EVERY DAY NEEDED 10/17 completed Not Available Not Available Not Available phenazopy ridine 200 mg tablet active Not Available Not Available Not Available prednison e 20 mg tablet Take 2 tablets every day by oral route. active Not Available Not Available No t Available fexofenad ine 180 mg tablet TK 1 T PO QD FOR 6 DAYS 04/03 completed Not Available Not Available Not Available ciproflox acin 500 mg tablet Take 1 tablet twice a day by oral route for 5 days. active Not Available Not Available No t Available amoxicill in 500 mg tablet Take 1 tablet 3 times a day by oral route for 7 days. 06/17 completed Not Available Not Available Not Available lamotrigi ne 25 mg tablet TAKE 2 TABLETS BY MOUTH ONCE DAILY AT BEDTIME active Not Available Not Available No t Available Kenalog 40 mg/mL suspensio n for injection Take 80 mg by injectio n route. 12/07 completed Not Available Not Available Not Available meloxicam 7.5 mg tablet TAKE 1 TABLET BY MOUTH ONCE DAILY active Not Available Not Available No t Available alprazola m 0.5 mg tablet TAKE 1 TABLET BY MOUTH EVERY DAY NEEDED active Not Available Not Available No t Available dicyclomi ne 20 mg tablet TAKE 1 TABLET BY MOUTH FOUR TIMES A DAY active Not Available Not Available No t Available Anaspaz 0.125 mg disintegr ating tablet TAKE ONE TABLET UP TO SIX TIMES A DAY NEEDED active Not Available Not Available No t Available cephalexi n 500 mg capsule Take 1 capsule every 12 hours by oral route for 6 days. active Not Available Not Available No t Available pantopraz ole 40 mg tablet,de layed release TAKE 1 TABLET BY MOUTH EVERY DAY active Not Available Not Available No t Available cyanocoba edgar (vit B-12) 1,000 mcg/mL injection solution Inject 1 mL every month by subcutan eous route. 10/17 completed Not Available Not Available Not Available mirtazapi ne 30 mg tablet TAKE 1 TABLET BY MOUTH EVERYDAY AT BEDTIME 2022 active Not Available Not Available Not Avai lable oseltamiv ir 75 mg capsule 03/03 completed Not Available Not Available Not Available neomycin- polymyxin -dexameth 3.5 mg/mL-10, 000 unit/mL-0 .1% eye drops 3 drops in affected ear twice a day 04/03 completed Not Available Not Available Not Available lisinopri l 10 mg tablet Take 1 tablet twice a day by oral route. 08/05 completed stopped at visit 08/05/[address] Bledsoe due to cough Not Available Not Available Not Available promethaz ine 25 mg tablet TAKE 1 TABLET BY MOUTH EVERY 6 HOURS NEEDED FOR NAUSEA active Not Available Not Available No t Available Advair Diskus 250 mcg-50 mcg/dose powder for inhalatio n Inhale 1 puff twice a day by inhalati on route. 2021 active Not Available Not Available Not Avai labedil Vivelle-D ot 0.05 mg/24 hr transderm al patch Apply 1 patch every week by transder mal route. active Not Available Not Available No t Available mirtazapi ne 45 mg tablet TAKE 1 TABLET BY MOUTH EVERYDAY AT BEDTIME 06/20 completed *per pt on 30mg Not Available Not Available Not Available etodolac 400 mg tablet Take 1 tablet twice a day by oral route. 06/23 completed Not Available Not Available Not Available telmisart an 20 mg tablet TAKE 1 TABLET BY MOUTH EVERY DAY active Not Available Not Available No t Available mirtazapi ne 15 mg tablet TAKE 1 TABLET BY MOUTH EVERYDAY AT BEDTIME active Not Available Not Available No t Available estradiol 0.5 mg tablet TAKE ONE TABLET BY MOUTH ONCE DAILY active Not Available Not Available No t Available polyethyl anum glycol 3350 17 gram/dose oral powder 2020 active Not Available Not Available Not Avai lable levofloxa delfina 500 mg tablet Take 1 tablet every day by oral route. 03/03 completed Not Available Not Available Not Available methylpre dnisolone 4 mg tablets in a dose pack Take 1 package by oral route as directed . active Not Available Not Available No t Available ondansetr on 4 mg disintegr ating tablet DISSOLVE 1 TABLET BY MOUTH EVERY 6 HOURS 03/28 completed Not Available Not Available Not Available cefdinir 300 mg capsule Take 1 capsule every 12 hours by oral route for 7 days. 10/07 completed Not Available Not Available Not Available amoxicill in 875 mg-potass ium clavulana te 125 mg tablet Take 1 tablet twice a day by oral route. 02/03 completed Not Available Not Available Not Available hydroxyzi ne pamoate 25 mg capsule TAKE 1 CAPSULE BY MOUTH EVERY DAY 2022 active Not Available Not Available Not Avai lable ProAir HFA 90 mcg/actua tion aerosol inhaler Inhale 2 puffs every 4 hours by inhalati on route as needed. 2020 active Not Available Not Available Not Avai lable Symbicort 80 mcg-4.5 mcg/actua tion HFA aerosol inhaler Inhale 2 puffs twice a day by inhalati on route. 02/17 completed changed to Advair 250/50 Not Available Not Available Not Available Bystolic 10 mg tablet active Not Available Not Available Not Available Prolia 60 mg/mL subcutane ous syringe Inject 1 mL by subcutan eous route. 12/27 completed Not Available Not Available Not Available Linzess 290 mcg capsule Take 1 capsule every day by oral route. 2021 active Not Available Not Available Not Avai lable BinaxNOW COVID-19 Ag Self Test kit USE DIRECTED 05/17 completed Not Available Not Available Not Available Vitals Date Recorded Body mass index (BMI) Body height Heart rate Body temperature Body weight Systolic blood pressure Diastolic blood pressure Provider Name and Address Organization Details Last Updated DateTime 3 25.9 kg/m2 162.56 cm 66 /min 97.2 [degF] 69799.4 5 g 140 mm[Hg] 90 mm[Hg] Not Available [facility] 3 05:19:05 Date Recorded Body mass index (BMI) Body height Heart rate Body temperature Body weight Systolic blood pressure Diastolic blood pressure Provider Name and Address Organization Details Last Updated DateTime 2 25.9 kg/m2 162.56 cm 78 /min 97.2 [degF] 47594.4 5 g 100 mm[Hg] 60 mm[Hg] Not Available [facility] 3 05:19:05 Date Recorded Body height Body mass index (BMI) Body weight Body temperature Heart rate Systolic blood pressure Diastolic blood pressure Provider Name and Address Organization Details Last Updated DateTime 3 162.56 cm 25.6 kg/m2 80456.2 6 g 97.3 [degF] 67 /min 122 mm[Hg] 72 mm[Hg] ABDIAS Ayon [facility] [employer] [facility] 3 11:10:52 Date Recorded Body mass index (BMI) Body height Heart rate Body temperature Body weight Systolic blood pressure Diastolic blood pressure Provider Name and Address Organization Details Last Updated DateTime 2 25.4 kg/m2 162.56 cm 60 /min 96.6 [degF] 35275.6 7 g 120 mm[Hg] 62 mm[Hg] Not Available [facility] 3 05:19:05 Date Recorded Body mass index (BMI) Body height Heart rate Body temperature Body weight Systolic blood pressure Diastolic blood pressure Provider Name and Address Organization Details Last Updated DateTime 2 25.6 kg/m2 162.56 cm 67 /min 97 [degF] 12501.2 6 g 128 mm[Hg] 82 mm[Hg] Not Available [facility] 3 05:19:05 Date Recorded Body height Body mass index (BMI) Body weight Body temperature Heart rate Systolic blood pressure Diastolic blood pressure Provider Name and Address Organization Details Last Updated DateTime 3 162.56 cm 25.7 kg/m2 93626.8 6 g 97.5 [degF] 65 /min 130 mm[Hg] 82 mm[Hg] ABDIAS Ayon [facility] [employer] [facility] 3 10:25:20 Social History Question Answer Notes LastModified by Organization Details LastModified Time Tobacco Smoking Status Current Every Day Smoker quit 11/2020; restarted Not Available [facility] 05/22/2022 05:13:50 Do You Have An Advance Directive? No Patient Stated She Is Currently Working On One And Will Get A Copy For Us Once Completed MIGRATION.0301 [id number] Information not available 05/22/2022 Are You Blind Or Do You Have Difficulty Seeing? No MIGRATION.030 [id number] Information not available 05/22/2022 What Is Your Level Of Caffeine Consumption? Moderate MIGRATION.0301 [id number] Information not available 05/22/2022 How Much Tobacco Do You Chew? None MIGRATION.0301 [id number] Information not available 05/22/2022 In The 14 Days Before Symptom Onset, Have You Had Close Contact With A Laboratory-conf irmed COVID-19 While That Case Was Ill? No MIGRATION.030 837110 Information not available 05/22/2022 In The 14 Days Before Symptom Onset, Have You Had Close Contact With A Person Who Is Under Investigation For COVID-19 While That Person Was Ill? No MIGRATION.030 635261 Information not available 05/22/2022 Are You Deaf Or Do You Have Serious Difficulty Hearing? No MIGRATION.0301 [id number] Information not available 05/22/2022 What Type Of Diet Are You Following? REGULAR MIGRATION.030 643698 Information not available 05/22/2022 Which Illicit Or Recreational Drugs Have You Used? None MIGRATION.030 144423 Information not available 05/22/2022 What Is The Highest Grade Or Level Of School You Have Completed Or The Highest Degree You Have Received? [id number] MIGRATION.030 453060 Information not available 05/22/2022 Have There Been Any Changes To Your Family Or Social Situation? No MIGRATION.0301 929149 Information not available 05/22/2022 What Is The Fluoride Status Of Your Home? Unknown MIGRATION.030 275624 Information not available 05/22/2022 Are There Any Guns Present In Your Home? Yes MIGRATION.0301 982124 Information not available 05/22/2022 Do You Use Insect Repellent Routinely? No MIGRATION.0301 747666 Information not available 05/22/2022 [facility] MIGRATION.030 384917 Information not available 05/22/2022 Do You Have A Medical Power Of Offender Job Retention Specialist? No MIGRATION.0301 704842 Information not available 05/22/2022 What Was The Date Of Your Most Recent Tobacco Screening? 02/03/2023 [email or web address] Information not available 02/03/2023 Have You Ever Been Counseled For Unhealthy Alcohol Use? No MIGRATION.0301 025100 Information not available 05/22/2022 Do You Have Any Pets? Yes MIGRATION.0301 [id number] Information not available 05/22/2022 What Is Your Relationship Status? MIGRATION.030 649330 Information not available 05/22/2022 Do You Use Your Seat Belt Or Car Seat Routinely? Yes MIGRATION.0301 [id number] Information not available 05/22/2022 Do You Have Smoke And Carbon Monoxide Detectors In Your Home? Yes MIGRATION.0301 141064 Information not available 05/22/2022 Are You Passively Exposed To Smoke? Yes MIGRATION.0301 465020 Information not available 05/22/2022 Are There Any Smokers In Your House? Yes Pt Smokes MIGRATION.0301 893062 Information not available 05/22/2022 How Much Tobacco Do You Smoke? 0.5 PPD MIGRATION.0301 766043 Information not available 05/22/2022 What Types Of Sporting Activities Do You Participate In? None MIGRATION.0301 375183 Information not available 05/22/2022 Do You Use Sunscreen Routinely? No MIGRATION.0301 280506 Information not available 05/22/2022 Have You Recently Traveled Abroad? No MIGRATION.0301 380657 Information not available 05/22/2022 Do You Have Difficulty Walking Or Climbing Stairs? No MIGRATION.0301 871442 Information not available 05/22/2022 Do You Have Any Dietary Restrictions? No MIGRATION.0301 064226 Information not available 05/22/2022 Sex: Female Functional Status Question Answer Note LastModified by Organizat ion Details LastModified Time Do you use any illicit or recreational drugs? No MIGRATION.186408 3369 Information not available 05/22/2022 Do you or have you ever used any other forms of tobacco or nicotine? No MIGRATION.817415 1941 Information not available 05/22/2022 What is your level of alcohol consumption? Occasional MIGRATION.280794 7087 Information not available 05/22/2022 Do you or have you ever used smokeless tobacco? Never used smokeless tobacco MIGRATION.277441 6757 Information not available 05/22/2022 Do you have transportation difficulties? No MIGRATION.905882 2411 Information not available 05/22/2022 Are you able to walk? YESWOREST MIGRATION.126995 5825 Information not available 05/22/2022 Do you have difficulty doing errands alone? No MIGRATION.623120 6758 Information not available 05/22/2022 Are you able to care for yourself? Yes MIGRATION.497477 1338 Information not available 05/22/2022 What is your occupation? retired MIGRATION.926651 9197 Information not available 05/22/2022 Do you have difficulty dressing or bathing? No MIGRATION.595528 0886 Information not available 05/22/2022 Do you or have you ever used e-cigarettes or vape? Never used electronic cigarettes MIGRATION.135932 3971 Information not available 05/22/2022 What is your exercise level? None MIGRATION.126374 3442 Information not available 05/22/2022 Mental Status Question Answer Note LastModified by Organizat ion Details LastModified Time Do you feel stressed (tense, restless, nervous, or anxious, or unable to sleep at night)? [id number] MIGRATION.[id number] 26 Information not available 05/22/2022 Do you have difficulty concentrating, remembering or making decisions? No MIGRATION.18762087 26 Information not available 05/22/2022 Family History Relationship Description Onset Age of this Age Resolved Age Notes LastModified by Organization Details LastModified Time Sister Hypertensive disorder MIGRATION.708 [id number] Not available 05/22/2022 05:14:10 Sister Diabetes mellitus MIGRATION.000 [id number] Not available 05/22/2022 05:14:10 Mother Heart disease MIGRATION.770 [id number] Not available 05/22/2022 05:14:10 Father Diabetes mellitus MIGRATION.824 [id number] Not available 05/22/2022 05:14:10 Father Malignant tumor of colon MIGRATION.318 [id number] Not available 05/22/2022 05:14:10 Unspecified Relation Malignant tumor of stomach 57 65 matern al cousin MIGRATION.307 [id number] Not available 05/22/2022 05:14:10 Medical History Condition Response NERVE DISEASE N BLINDNESS N RHEUMATIC FEVER N KIDNEY STONES N BLADDER PROBLEMS N MRSA N OTHER # 1 N POLIO N LUNG DISEASE/DISORDER N RADIATION / CHEMOTHERAPY N COPD N Other # 2 N BLOOD DISEASES N EAR OR HEARING PROBLEMS N MUMPS N BOWEL PROBLEMS Y DEPRESSION (INCLUDING POST ) Y STROKE/TIA N ULCERS N BENIGN PROSTATIC HYPERPLASIA N MEASLES N MYOCARDIAL INFARCTION N OBESITY N GERD/NAUSEA N ANEURYSM N URINARY/BLADDER/KIDNEY PROBLEMS N CORONARY ARTERY DISEASE (CAD) N ADDICTION CONCERNS N Impotence N ENDOMETRIOSIS N USE OF BLOOD THINNERS N SKIN PROBLEMS N GASTROINTESTINAL DISORDER N PERIPHERAL VASCULAR DISEASE N MUSCLE,JOINT OR BONE PROBLEMS N GASTROINTESTINAL BLEEDING N BLOOD CLOTS N ASTHMA N CATARACTS N ERECTILE DYSFUNCTION N VARICOSITIES N GI PROBLEMS N Low Testosterone N INFERTILITY N AIDS/HIV N CHEMOTHERAPY / RADIATION N LIVER DISEASE N MALE HYPOGONADISM N HYPERTENSION Y Deficiency Y TOURETTE'S N ANXIETY DISORDER Y BLOOD TRANSFUSION N ANEMIA/BLOOD DISORDER N CHRONIC EAR INFECTIONS N BRONCHITIS N TUBERCULOSIS N GLAUCOMA N FOOT PROBLEM N DIVERTICULITIS N SLEEP APNEA N CHICKENPOX N INFECTIOUS DISEASE N PROSTATE N HEART ARRHYTHMIA N INSOMNIA N HIGH CHOLESTEROL / HYPERLIPIDEMIA Y EYE PROBLEMS Y HYPERTHYROIDISM N EDEMA N CHRONIC PAIN SYNDROME N HYPOTHYROIDISM N CONSTIPATION N CAROTID BLOCKAGE N BACK / NECK PROBLEMS Y ATHEROSCLEROSIS N BREAST PROBLEMS N DIALYSIS N ECZEMA N OSTEOPOROSIS Y ARTHRITIS Y APPENDICITIS N DIABETES, TYPE N BAD TEETH N ENT N HEARTBURN / REFLUX N AUTISM SPECTRUM DISORDER (ASD) N HEPATITIS / LIVER DISEASE N GOUT N SLEEP DISORDER N ALZHEIMER'S DISEASE N Brain Problems N DEMENTIA N HERPES N SEIZURES/EPILEPSY N HEADACHES/MIGRAINES N VASCULAR DISEASE N PACEMAKER N Blood Disorder N DIZZINESS N HEART DISEASE/HEART PROBLEMS N KIDNEY DISEASE N MULTIPLE SCLEROSIS N CANCER: SPECIFY N CARDIAC ARRHYTHMIA N ATRIAL FIBRILLATION N Gall Stones N PULMONARY EMBOLISM N AUTOIMMUNE DISEASE N Gynecological History Statement/Question Response Date of Last Pap Date of Last Mammogram 05/05/2019 Date of Last Colonoscopy 01/07/2019 Most Recent Bone Density 08/20/2018 Obstetrics History GPAL:G 0 P 0 0 0 0 Immunizations Vaccine Type Date Status Note Provider Nam e and Address Organization Details Recorded Time Influenza, high-dose, trivalent, PF 6 completed Not Available [facility] 04/28/2023 18:41:57 COVID-19, mRNA, LNP-S, PF, 30 mcg/0.3 mL dose 1 completed Not Available [facility] 04/28/2023 18:41:57 COVID-19, mRNA, LNP-S, PF, 30 mcg/0.3 mL dose 1 completed Not Available [facility] 04/28/2023 18:41:57 Influenza, high-dose, trivalent, PF 7 completed Not Available [facility] 04/28/2023 18:41:57 COVID-19, mRNA, LNP-S, PF, 30 mcg/0.3 mL dose 2 completed Not Available [facility] 04/28/2023 18:41:57 COVID-19, mRNA, LNP-S, PF, 30 mcg/0.3 mL dose 2 completed Not Available [facility] 04/28/2023 18:41:57 COVID-19, mRNA, LNP-S, PF, 30 mcg/0.3 mL dose 1 completed Not Available [facility] 04/28/2023 18:41:57 Influenza, high-dose, quadrivalent, PF 2 completed Not Available [facility] 04/28/2023 18:41:57 Influenza, high-dose, quadrivalent, PF 1 completed Not Available [facility] 04/28/2023 18:41:57 pneumococcal polysaccharide PPV23 0 completed Not Available [facility] 04/28/2023 18:41:57 Influenza, high-dose, quadrivalent, PF 0 completed Not Available [facility] 04/28/2023 18:41:57 Influenza, high-dose, trivalent, PF 9 completed Not Available [facility] 04/28/2023 18:41:57 Influenza, high-dose, trivalent, PF 8 completed Not Available [facility] 04/28/2023 18:41:57 Influenza, split virus, quadrivalent, preservative 5 completed Not Available [facility] 04/28/2023 18:41:57 Pneumococcal conjugate PCV 13 4 completed Not Available [facility] 04/28/2023 18:41:57 Influenza, split virus, quadrivalent, PF 4 completed Not Available [facility] 04/28/2023 18:41:57 Influenza, split virus, trivalent, preservative 3 completed Not Available [facility] 04/28/2023 18:41:57 Influenza, high-dose, quadrivalent, PF 3 completed Miles Bledsoe MD [address] [place] [address] [address], [address], [facility] 02/03/2023 13:57:14 Past Encounters Encounter ID Performer Location Encounter Start Date Encounter Closed Date Diagnosis/Indication Diagnosis SNOMED-CT Code Diagnosis ICD10 Code Diagnosis Note [id number] Miles Bledsoe MD [facility] [address] [place] [address] [place] [address] 08/07/2020 00:00:00 08/07/2020 21:45:29 [id number] Miles Bledsoe MD [facility] [address] [place] [address] [place] [address] 10/18/2020 00:00:00 10/22/2020 21:24:28 [id number] Miles Bledsoe MD [facility] [address] [place] [address] [place] [address] 12/27/2020 00:00:00 01/14/2021 16:43:13 [id number] Miles Bledsoe MD [facility] [address] [place] [address] [place] [address] 03/28/2021 00:00:00 04/21/2021 16:12:12 [id number] Miles Bledsoe MD [facility] [address] [place] [address] Jose., [address] [address] 06/20/2021 00:00:00 06/20/2021 21:18:00 [id number] Miles Bledsoe MD [facility] [address] [place] [address] Cyn[place] [address] 10/17/2021 00:00:00 10/17/2021 12:43:58 [id number] Miles Bledsoe MD [facility] [address] [place] [address] Cyndie., [address] [address] 01/18/2022 00:00:00 01/19/2022 14:09:46 [id number] Miles Bledsoe MD [facility] [address] [address] 10/07/2022 10:33:12 10/07/2022 12:03:22 Adult health examination 574690878 Z00.00 Screening for disorder 685433757 Z13.9 Dyslipidemia 958153044 E 78.5 Essential hypertension 16002757 I10 Anxiety 44450158 F41.9 Gastroesop hageal reflux disease without esophagitis 722955016 K21.9 Lumbar spondylosis 42873 0009 M47.896 Hyperlipidemia 34665550 E78.5 Irritable bowel syndrome 06148037 K58.9 [id number] Miles Bledsoe MD [facility] [address] [facility], [address] [place] [address] 02/03/2023 10:18:03 02/03/2023 12:16:38 Dizziness 253651999 R42 Palpitations 38410762 R0 0.2 Essential hypertension 60740418 I10 Administra tion of influenza vaccine 16047805 Z23 Anxiety 05576701 F41.9 Dyslipidemia 983070968 E 78.5 Gastroesop hageal reflux disease without esophagitis 968542143 K21.9 Health Concerns Section Related Observation LastModified by Organization Detai ls LastModified Time None Recorded Concern Status LastModified by Organization Details LastModified Time None Recorded Advance Directives Directive N: patient stated she is cur rently working on one and will get a copy for us once completed Payers Encounter Date Sequence Insurance Name Policy Number Policy Aguirre Covered Member ID Aguirre Member ID Guarantor Name 10/07/2022 1 [place] Duyenilsa Do [id number] Duyen [place] 10/07/2022 2 [facility] OPTION - PLAN N (MEDICARE SUPPLEMENT) Duyen [place] [id number] Duyen Hi 02/03/2023 1 [place] Duyenilsa Do [id number] Duyen Hi 02/03/2023 2 [facility] OPTION - PLAN N (MEDICARE SUPPLEMENT) Duyen [place] [id number] Duyen Hi Notes Date Note Type Note Provider Name and Address Organization Details Recorded Time 10/07/2022 text/html Hypertension no headache no chest pain. COPD no cough or wheezing. Anxiety doing well no SI or HI. IBS no bowel problems today she has had a light headed spell about every month lasts about 30 minutes but she never checks her blood pressure does not have any other symptoms associated with thisMedicare wellness completed Miles Bledsoe MD [address] [facility], [address], [place], [address], [facility] [employer] [facility] [employer] [facility] 10/07/2022 22:12:50 02/03/2023 text/html Hypertension no headache no chest pain. COPD no cough or wheezing. Anxiety doing well no SI or HI. IBS no bowel problems today she has had a light headed spell about every month lasts about 30 minutes but she never checks her blood pressure does not have any other symptoms associated with this still having the spells Miles Bledsoe MD [address] [facility], [facility] [address], [place], [address], [facility] [employer] [facility] [employer] [facility] 02/03/2023 13:57:18 OBGyn Episode No OBEpisode recorded.
--- OUTSIDE RECORDS SUMMARY | 2024-08-27 07:23 | XMS_ITS | CONTINUITY OF CARE DOCUMENT ---
Author Name audreyberry pankaj Address Unknown Organization [facility] Address [address] [place] [address] Phone [phone] Care Team Providers Care Ladle Cleaner Name Role Phone Travis MCGRATH, Marilynn Unavailable BALDEV FRIEDMAN MD Unavailable [phone] MILES PARKER MD Unavailable PROBLEMS Condition Status Date Provider Notes Palpitations active Britton Crawford Dizziness active Nhan Dickerson HISTORY OF MEDICATION USE Medication Status Instructions Dates Provider Indications Com ments MIRALAX ORAL PACKET active 1 CAPSULES T WICE DAILY Analilia Cape BONIVA TABS active ONE TAB MONTHLY Analilia Cape HYOMAX-SL 0.125 MG SUBLINGUAL TABLET SUBLINGUAL active ONE TAB EVERY 6 HOURS FOR CRAMPS OR NEEDED Analilia Cape XANAX 0.25 MG ORAL TABLET active ONE TAB THREE TIMES DAILY NEEDED Analilia Cape METHSCOPOLAMINE BROMIDE 5 MG ORAL TABLET active ONE TAB THREE TIMES DAILY FOR NAUSEA Analilia Cape EFFEXOR XR 75 MG ORAL CAPSULE EXTENDED RELEASE 24 HOUR active ONE TAB DAILY Analilia Cape DICLOFENAC SODIUM 75 MG ORAL TABLET DELAYED RELEASE active ONE TAB TWICE DAILY Analilia Cape PROTONIX 40 MG ORAL TABLET DELAYED RELEASE active ONE TAB. DAILY Analilia Cape VIVELLE 0.05 MG/24HR PTTW active twice weekly Analilia Cape INSURANCE PROVIDERS Payer name Policy type / Coverage type Wright red alliance party ID [place] Medicare [id number] TREATMENT PLAN Date Name Stress Regadenoson Carotid Duplex Bilat eral Complete Echo HISTORY OF PROCEDURES Procedure Date Procedure Name Provider Procedure Notes S tatus Mobile Cardiac Telemetry - Ministerio Choi DO completed Mobile Cardiac Telemetry - Prof Richard Choi DO completed
--- OUTSIDE RECORDS SUMMARY | 2024-08-27 07:24 | XMS_ITS | Data Portability ---
Author Organization [facility] Address [address] [facility] [place] [address] Care Team Providers Care Machine Feller Name Role Phone MILES BLEDSOE Primary Care Provider Unavailabl e Assessment Encounter Date Assessment Date Assessment LastModified by Organization Details LastModified Time 12/23/2023 12/23/2023 she seems to hav e resolved nicely from the COVID we will continue current therapy get a flu shot blood work she will see me in 4 months diagnosis and assessment and plan have been discussed. She was told she will not need a COVID shot for at least 90 days. EKG shows sinus rhythm with no acute change [email or web address] Not available 01/04/2024 15:05:52 02/17/2024 02/17/2024 MRI of the brain Valium for his vestibular suppression do not take alprazolam while she is taking the Valium she will call after the holiday weekend with update quitting tobacco care instructions. During the course of my examination her radial pulse was 62 may need to back off her Coreg. Discussed with family member who was in attendance today [email or web address] Not available 02/21/2024 21:56:20 04/06/2024 04/06/2024 MRI reviewed brenna d her it is imperative that she get off tobacco and get blood pressure under control I am going to add nifedipine ER 30 mg daily I will see her back in a month quitting tobacco care instructions healthy lifestyle care instructions [email or web address] Not available 04/10/2024 17:21:24 05/14/2024 05/14/2024 as stated her blood pressures come under better control we are going to try to get a few lb off of her healthy lifestyle care instructions. Prediabetes hyperlipidemia COPD GERD in the management thereof discussed recommended to stay up-to-date on all screenings and immunizations ordered were appropriate and patient agreeable follow up in 3 months [email or web address] Not available 05/15/2024 16:56:06 Plan of Treatment Reminders Order Date Submit Date Provider Last Modified By Organization Details Last Modified Time Details Appointments ANY 15 2024 09:30A M Miles Bledsoe MD Not available Not available Not available Lab CBC w/ auto diff 2023 024 [facility], [address], [place], [address], 12/24/2023 08:31:35 lipid panel, serum 2023 024 [facility], [address], [place], [address], 12/24/2023 08:31:34 CMP, serum or plasma 2023 024 [facility], [address], [place], [address], 12/24/2023 08:31:35 Referral None recorded. Procedures None recorded. Surgeries None recorded. Imaging MRI, brain, w/o contrast [address] [facility], [address] [place] [address], [facility] [address], [place], [address], 04/13/2024 16:49:41 electroca rdiogram 2023 024 [email or web address] In-Office Order, Internal Use Only DO Not Attach Compendium DO Not Attach Compendium, Do Not Delete/merge, [id number] 12/23/2023 20:30:08 Medication Orders nifedipin e ER 30 mg tablet,ex tended release 2024 025 [facility] #[id number], [address], [place], [address], 04/07/2024 10:43:40 Patient TargetsNo targets recorded. Patient Instructions Encounter Date Encounter Id Patient Instructions Last Modified By Organization Details Last Modified Time 02/17/2024 [id number] Quitting Tobacco : Care Instructions [email or web address] Not available 02/17/2024 11:54:12 04/06/2024 [id number] A healthy lifestyle: care instructions [email or web address] Not available 04/06/2024 11:42:18 Quitting Tobacco : Care Instructions [email or web address] Not available 04/06/2024 11:42:18 05/14/2024 [id number] A healthy lifestyle: care instructions [email or web address] Not available 05/14/2024 12:47:57 Reason for Referral None Reported. Results Created Date Observation Date Name Description Value Unit Range Abnormal Flag Note LastModifiedBy Organization Detail LastModifiedTime 12/10/19 24 12/10/2023 influ estella virus A + B + SARS- CoV-2 (COVI D19) Ag panel , rapid IA, upper respi rator y speci men Flu A negati ve Not Available In-Office Order Internal Use Only DO Not Attach Compendium DO Not Attach Compendium, Do Not Delete/merge, [id number] 12/10/2023 17:08:17 12/10/19 24 12/10/2023 influ estella virus A + B + SARS- CoV-2 (COVI D19) Ag panel , rapid IA, upper respi rator y speci men Flu B negati ve Not Available In-Office Order Internal Use Only DO Not Attach Compendium DO Not Attach Compendium, Do Not Delete/merge, [id number] 12/10/2023 17:08:17 12/10/19 24 12/10/2023 influ estella virus A + B + SARS- CoV-2 (COVI D19) Ag panel , rapid IA, upper respi rator y speci men Rapid SARS CoV 2 Ag, QL IA, respiratory specimen positi ve Not Available In-Office Order Internal Use Only DO Not Attach Compendium DO Not Attach Compendium, Do Not Delete/merge, [id number] 12/10/2023 17:08:17 12/23/19 24 12/24/2023 LIPID PANEL cholesterol, total 167 mg/dL 100-19 9 Not Available [facility] ([facility]) [address] [facility], [place], [address], 12/24/2023 08:31:34 12/23/19 24 12/24/2023 LIPID PANEL triglyceride s 207 mg/dL 0-149 above high normal Not Available [facility] ([facility]) [address] [facility], [place], [address], 12/24/2023 08:31:34 12/23/19 24 12/24/2023 LIPID PANEL HDL cholesterol 43 mg/dL >39 Not Available [facility] ([facility]) [address] [facility], [place], [address], 12/24/2023 08:31:34 12/23/19 24 12/24/2023 LIPID PANEL VLDL cholesterol linda 35 mg/dL 5-40 Not Available [facility] ([facility]) [address] [facility], [place], [address], 12/24/2023 08:31:34 12/23/19 24 12/24/2023 LIPID PANEL LDL chol calc ([facility]) 89 mg/dL 0-99 Not Available [facility]) [address] [facility], [place], [address], 12/24/2023 08:31:34 12/23/19 24 12/24/2023 COMP. METAB OLIC PANEL (14) glucose 94 mg/dL 70-99 Not Available [facility] ([facility]) [address] [place], [address], 12/24/2023 08:31:35 12/23/19 24 12/24/2023 COMP. METAB OLIC PANEL (14) BUN 11 mg/dL 8-27 Not Available [facility] ([facility]) [address] [place], [address], 12/24/2023 08:31:35 12/23/19 24 12/24/2023 COMP. METAB OLIC PANEL (14) creatinine 0.73 mg/dL 0.57-1 .00 Not Available [facility] ([facility]) [address] [place], [address], 12/24/2023 08:31:35 12/23/19 24 12/24/2023 COMP. METAB OLIC PANEL (14) eGFR 86 mL/mi n/1.7 3 >59 Not Available [facility] ([facility]) [address] [facility], [place], [address], 12/24/2023 08:31:35 12/23/19 24 12/24/2023 COMP. METAB OLIC PANEL (14) BUN/creatini ne ratio 15 12-28 Not Available [facility] ([facility]) [address] [facility], [place], [address], 12/24/2023 08:31:35 12/23/19 24 12/24/2023 COMP. METAB OLIC PANEL (14) sodium 141 mmol/ L 134-14 4 Not Available [facility] ([facility]) [address] [facility], [place], [address], 12/24/2023 08:31:35 12/23/19 24 12/24/2023 COMP. METAB OLIC PANEL (14) potassium 4.1 mmol/ L 3.5-5. 2 Not Available [facility] ([facility]) [address] [facility], [place], [address], 12/24/2023 08:31:35 12/23/19 24 12/24/2023 COMP. METAB OLIC PANEL (14) chloride 101 mmol/ L 96-106 Not Available [facility] ([facility]) [address] [facility], [place], [address], 12/24/2023 08:31:35 12/23/19 24 12/24/2023 COMP. METAB OLIC PANEL (14) carbon dioxide, total 26 mmol/ L 20-29 Not Available [facility] ([facility]) [address] [facility], [place], [address], 12/24/2023 08:31:35 12/23/19 24 12/24/2023 COMP. METAB OLIC PANEL (14) calcium 9.7 mg/dL 8.7-10 .3 Not Available [facility] ([facility]) [address] [facility], [place], [address], 12/24/2023 08:31:35 12/23/19 24 12/24/2023 COMP. METAB OLIC PANEL (14) protein, total 7.0 g/dL 6.0-8. 5 Not Available [facility] ([facility]) [address] [facility], [place], [address], 12/24/2023 08:31:35 12/23/19 24 12/24/2023 COMP. METAB OLIC PANEL (14) albumin 4.3 g/dL 3.8-4. 8 Not Available [facility] ([facility]) [address] [facility], [place], [address], 12/24/2023 08:31:35 12/23/19 24 12/24/2023 COMP. METAB OLIC PANEL (14) globulin, total 2.7 g/dL 1.5-4. 5 Not Available [facility] ([facility]) [address] [facility] [place], [address], 12/24/2023 08:31:35 12/23/19 24 12/24/2023 COMP. METAB OLIC PANEL (14) bilirubin, total 0.5 mg/dL 0.0-1. 2 Not Available [facility] ([facility]) [address] [facility] [place], [address], 12/24/2023 08:31:35 12/23/19 24 12/24/2023 COMP. METAB OLIC PANEL (14) alkaline phosphatase 135 IU/L 44-121 above high normal Not Available [facility] ([facility]) [address] [facility] [place], [address], 12/24/2023 08:31:35 12/23/19 24 12/24/2023 COMP. METAB OLIC PANEL (14) AST (SGOT) 15 IU/L 0-40 Not Available [facility] ([facility]) [address] [facility], [place], [address], 12/24/2023 08:31:35 12/23/19 24 12/24/2023 COMP. METAB OLIC PANEL (14) ALT (SGPT) 6 IU/L 0-32 Not Available [facility] ([facility]) [address] [facility], [place], [address], 12/24/2023 08:31:35 12/23/19 24 12/24/2023 CBC WITH DIFFE RENTI AL/PL ATELE T WBC 7.9 x10e3 /uL 3.4-10 .8 Not Available [facility] ([facility]) [address] [facility], [place], [address], 12/24/2023 08:31:35 12/23/19 24 12/24/2023 CBC WITH DIFFE RENTI AL/PL ATELE T RBC 4.74 x10e6 /uL 3.77-5 .28 Not Available [facility] ([facility]) [address] [facility], [place], [address], 12/24/2023 08:31:35 12/23/19 24 12/24/2023 CBC WITH DIFFE RENTI AL/PL ATELE T hemoglobin 14.3 g/dL 11.1-1 5.9 Not Available [facility] ([facility]) [address] [facility], [place], [address], 12/24/2023 08:31:35 12/23/19 24 12/24/2023 CBC WITH DIFFE RENTI AL/PL ATELE T hematocrit 43.5 % 34.0-4 6.6 Not Available [facility] ([facility]) [address] [facility], [place], [address], 12/24/2023 08:31:35 12/23/19 24 12/24/2023 CBC WITH DIFFE RENTI AL/PL ATELE T MCV 92 fL 79-97 Not Available [facility] ([facility]) [address] [facility], [place], [address], 12/24/2023 08:31:35 12/23/19 24 12/24/2023 CBC WITH DIFFE RENTI AL/PL ATELE T MCH 30.2 pg 26.6-3 3.0 Not Available [facility] ([facility]) [address] [facility], [place], [address], 12/24/2023 08:31:35 12/23/19 24 12/24/2023 CBC WITH DIFFE RENTI AL/PL ATELE T MCHC 32.9 g/dL 31.5-3 5.7 Not Available [facility] ([facility]) [address] [facility], [place], [address], 12/24/2023 08:31:35 12/23/19 24 12/24/2023 CBC WITH DIFFE RENTI AL/PL ATELE T RDW 12.8 % 11.7-1 5.4 Not Available [facility] ([facility]) [address] [facility], [place], [address], 12/24/2023 08:31:35 12/23/19 24 12/24/2023 CBC WITH DIFFE RENTI AL/PL ATELE T platelets 285 x10e3 /uL 150-45 0 Not Available [facility] ([facility]) [address] [facility], [place], [address], 12/24/2023 08:31:35 12/23/19 24 12/24/2023 CBC WITH DIFFE RENTI AL/PL ATELE T neutrophils 44 % notest ab. Not Available [facility] ([facility]) [address] [place], [address], 12/24/2023 08:31:35 12/23/19 24 12/24/2023 CBC WITH DIFFE RENTI AL/PL ATELE T lymphs 46 % notest ab. Not Available [facility] ([facility]) [address] [facility] [place], [address], 12/24/2023 08:31:35 12/23/19 24 12/24/2023 CBC WITH DIFFE RENTI AL/PL ATELE T monocytes 7 % notest ab. Not Available [facility] ([facility]) [address] [facility], [place], [address], 12/24/2023 08:31:35 12/23/1912/24/2023 CBC WITH DIFFE RENTI AL/PL ATELE T eos 2 % notest ab. Not Available [facility] ([facility]) [address] [facility], [place], [address], 12/24/2023 08:31:35 12/23/19 24 12/24/2023 CBC WITH DIFFE RENTI AL/PL ATELE T basos 1 % notest ab. Not Available [facility] ([facility]) [address] [facility], [place], [address], 12/24/2023 08:31:35 12/23/19 24 12/24/2023 CBC WITH DIFFE RENTI AL/PL ATELE T neutrophils (absolute) 3.5 x10e3 /uL 1.4-7. 0 Not Available [facility] ([facility]) [address] [facility], [place], [address], 12/24/2023 08:31:35 12/23/19 24 12/24/2023 CBC WITH DIFFE RENTI AL/PL ATELE T lymphs (absolute) 3.6 x10e3 /uL 0.7-3. 1 above high normal Not Available [facility] ([facility]) [address] [facility], [place], [address], 12/24/2023 08:31:35 12/23/19 24 12/24/2023 CBC WITH DIFFE RENTI AL/PL ATELE T monocytes(ab solute) 0.6 x10e3 /uL 0.1-0. 9 Not Available [facility] ([facility]) [address] [facility], [place], [address], 12/24/2023 08:31:35 12/23/19 24 12/24/2023 CBC WITH DIFFE RENTI AL/PL ATELE T eos (absolute) 0.2 x10e3 /uL 0.0-0. 4 Not Available [facility] ([facility]) [address] [facility], [place], [address], 12/24/2023 08:31:35 12/23/19 24 12/24/2023 CBC WITH DIFFE RENTI AL/PL ATELE T baso (absolute) 0.1 x10e3 /uL 0.0-0. 2 Not Available [facility] ([facility]) [address] [facility], [place], [address], 12/24/2023 08:31:35 12/23/19 24 12/24/2023 CBC WITH DIFFE RENTI AL/PL ATELE T immature granulocytes 0 % notest ab. Not Available [facility] ([facility]) [address] [facility], [place], [address], 12/24/2023 08:31:35 12/23/19 24 12/24/2023 CBC WITH DIFFE RENTI AL/PL ATELE T immature grans (abs) 0.0 x10e3 /uL 0.0-0. 1 Not Available [facility] ([facility]) [address] [facility], [place], [address], 12/24/2023 08:31:35 03/26/19 25 03/27/2024 HEMOG LOBIN A1C hemoglobin A1C 6.2 % 4.8-5. 6 above high normal Predi abete s: 5.7 - 6.4 Diabe lashawn: >6.4 Glyce loc contr ol for adult s with diabe lashawn: <7.0 Not Available [facility] ([place] [facility]) [address] [place], [address], 03/27/2024 07:08:33 12/23/19 24 12/24/2023 elect rocar diogr am No observ ation record ed. [facility] In-Office Order Internal Use Only DO Not Attach Compendium DO Not Attach Compendium, Do Not Delete/merge, [id number] 12/24/2023 13:48:49 12/23/19 24 12/23/2023 elect rocar diogr am No observ ation record ed. [facility] In-Office Order Internal Use Only DO Not Attach Compendium DO Not Attach Compendium, Do Not Delete/merge, [id number] 12/23/2023 14:22:21 12/26/19 24 12/23/2023 elect rocar diogr am No observ ation record ed. [facility] In-Office Order Internal Use Only DO Not Attach Compendium DO Not Attach Compendium, Do Not Delete/merge, [id number] 12/26/2023 09:50:53 02/13/20 24 02/13/2024 XR, chest No observ ation record ed. [address] [address], [place], [address], 02/18/2024 22:47:25 02/13/20 24 02/13/2024 XR, hip + pelvi s, bilat eral, 2 view No observ ation record ed. [address], [place], [address], 02/18/2024 22:47:25 02/27/20 24 02/27/2024 MRI, brain , w/o contr ast No observ ation record ed. [address] [facility] [address], [place], [address], 03/07/2024 21:33:50 06/25/19 25 06/24/2024 MRI, shoul migel, w/o contr ast No observ ation record ed. [facility] [address], [place], [address], 06/25/2024 09:09:27 08/21/19 elect rocar diogr am No observ ation record ed. [facility] In-Office Order Internal Use Only DO Not Attach Compendium DO Not Attach Compendium, Do Not Delete/merge, [id number] 08/20/2024 11:27:26 08/21/19 25 08/20/2024 kailey sahu am No observ ation record ed. [facility] In-Office Order Internal Use Only DO Not Attach Compendium DO Not Attach Compendium, Do Not Delete/merge, [id number] 08/20/2024 11:33:11 Result Notes None recorded. Problems Name Problem SNOMED Code Status Onset Date Resolution Date Notes Provider Name and Address Organization Details Recorded Time Chronic obstructive pulmonary disease 77788741 Active 2023 Miles Bledsoe MD Attn: Rasheed johnson,[address] [place], [address], [place] - [facility] 5 17:18:59 Gastroesophage al reflux disease without esophagitis 696291001 Active 2023 Miles Bledsoe MD Attn: Rasheed johnson,[address] [place], [address], [place] [facility] 5 17:18:59 Anxiety 55686820 Active 2023 Miles Bledsoe MD Attn: Rasheed johnson,[address] [place], [address], [place] [facility] 5 17:18:59 Essential hypertension 43592620 Active 2023 Miles Bledsoe MD Attn: Rasheed johnson,[address] [place], [address], [place] [facility] 5 17:18:59 Hyperlipidemia 83355138 Active 2023 Miles Bledsoe MD Attn: Rasheed johnson,[address] [place], [address], [place] [facility] 5 17:18:59 Osteoporosis 12575868 Active 2023 Miles Bledsoe MD Attn: Rasheed johnson,[address] [place], [address], [place] [facility] 5 17:18:59 Numbness 04090295 Active 2023 Miles Bledsoe MD Attn: Rasheed johnson,[address] [place], [address], [place] - [facility] 4 11:07:11 Irritable bowel syndrome 13023549 Active 2023 Miles Bledsoe MD Attn: Rasheed johnson,[address] [place], [address], [place] - [facility] 5 17:18:59 Screening mammography Active 2023 Lopez Jang MA null, [place] - [facility] 4 11:24:26 Vertigo 989161623 Active 2023 Lopez Jang MA null, [place] - [facility] 4 10:45:40 Prediabetes 540937453 Active 2024 Miles Bledsoe MD Attn: Suzannebeto johnson,[address] [facility], [place], [address], [facility] - [facility] 5 16:09:48 Electrocardiog merle abnormal 584963009 Active 2024 Lopez Jang MA null, [place] - [facility] 5 11:37:38 Problem Notes None recorded. Procedures Surgical History Date Name Laterality Status Provider Name and Address Organization Details Recorded Time Knee Surgery completed CHAN Guo [facility] 06/24/2023 10:34:31 Tonsillectomy completed Zonia Crawford MA [facility] 06/24/2023 10:34:38 Total hysterectomy completed Krystian Crawford MA [facility] 06/24/2023 10:34:46 Imaging Results None recorded. Procedure Notes None recorded. Medical Equipment None Reported. Allergies No known drug allergies Medications Name Sig Start Date Stop Date Status Note LastModified by Organization Details LastModified Time celecoxib 200 mg capsule TAKE 1 CAPSULE BY MOUTH EVERY DAY active Not Available Not Available No t Available prednisone 10 mg tablet TAKE 1 TABLET BY MOUTH TWICE A DAY FOR 10 DAYS active Not Available Not Available No t Available atorvastatin 20 mg tablet TAKE 1 TABLET BY MOUTH EVERY DAY active Not Available Not Available No t Available carvedilol 12.5 mg tablet TAKE 1 TABLET BY MOUTH TWICE A DAY active Not Available Not Available No t Available meclizine 12.5 mg tablet 12.5 MG ORALLY THREE TIMES A DAY NEEDED FOR DIZZINESS active Not Available Not Available No t Available nifedipine ER 30 mg tablet,exten ded release TAKE 1 TABLET BY MOUTH EVERY DAY active Not Available Not Available No t Available ketorolac 0.5 % eye drops PLEASE SEE ATTACHED FOR DETAILED DIRECTIONS active Not Available Not Available N ot Available alprazolam 0.5 mg tablet TAKE 1 TABLET BY MOUTH EVERY DAY NEEDED active Not Available Not Available No t Available prednisolone acetate 1 % eye drops,suspen alix 1 DROP 3 TIMES A DAY STARTING AFTER SURGERY, CONTINUE FOR 3 WEEKS active Not Available Not Available Not Available dicyclomine 20 mg tablet TAKE 1 TABLET BY MOUTH FOUR TIMES A DAY active Not Available Not Available Not Available Valium 5 mg tablet Take 0.5 tablets twice a day by oral route, for vertigo. 2023 active Not Available Not Available Not Avai lable ciprofloxaci n 0.3 % eye drops INSTILL 1 DROP INTO SURGICAL EYE 3 TIMES DAYS. START 2 DAYS BEFORE SURGERY. CONTINUE X1 WEEK AFTER active Not Available Not Available N ot Available pantoprazole 40 mg tablet,delay ed release TAKE 1 TABLET BY MOUTH EVERY DAY active Not Available Not Available No t Available mirtazapine 30 mg tablet TAKE 1 TABLET BY MOUTH EVERYDAY AT BEDTIME active Not Available Not Available No t Available diclofenac sodium 75 mg tablet,delay ed release TAKE 1 TABLET BY MOUTH TWICE DAILY active Not Available Not Available No t Available telmisartan 20 mg tablet TAKE 1 TABLET BY MOUTH EVERY DAY active Not Available Not Available No t Available hydroxyzine pamoate 25 mg capsule TAKE 1 CAPSULE BY MOUTH EVERY DAY active Not Available Not Available No t Available Vitals Date Recorded Body height Body mass index (BMI) Body weight Heart rate Oxygen saturation Oxygen saturation in Arterial blood by Pulse oximetry Systolic blood pressure Diastolic blood pressure Provider Name and Address Organization Details Last Updated DateTime 5 162.56 cm 26 kg/m2 93745.6 g 60 /min 96 % 96 % 166 mm[Hg] 100 mm[Hg] Esperanza Maurer [place] - [facility] 5 11:26:27 Date Recorded Body height Body mass index (BMI) Body weight Oxygen saturation Oxygen saturation in Arterial blood by Pulse oximetry Heart rate Systolic blood pressure Diastolic blood pressure Provider Name and Address Organization Details Last Updated DateTime 5 162.56 cm 27.1 kg/m2 50304.8 8 g 95 % 95 % 64 /min 122 mm[Hg] 72 mm[Hg] Jayla ghosh MA [facility] 5 12:04:27 Date Recorded Body height Body mass index (BMI) Body weight Heart rate Oxygen saturation Oxygen saturation in Arterial blood by Pulse oximetry Systolic blood pressure Diastolic blood pressure Provider Name and Address Organization Details Last Updated DateTime 5 162.56 cm 28 kg/m2 00777.6 3 g 65 /min 95 % 95 % 132 mm[Hg] 68 mm[Hg] Esperanza Maurer MA [facility] 5 11:14:58 Date Recorded Body height Body mass index (BMI) Body weight Heart rate Oxygen saturation Oxygen saturation in Arterial blood by Pulse oximetry Systolic blood pressure Diastolic blood pressure Provider Name and Address Organization Details Last Updated DateTime 4 162.56 cm 24.9 kg/m2 14880.9 7 g 67 /min 98 % 98 % 136 mm[Hg] 64 mm[Hg] Esperanza Maurer MA [facility] 4 12:00:27 Date Recorded Body height Body mass index (BMI) Body weight Heart rate Oxygen saturation Oxygen saturation in Arterial blood by Pulse oximetry Systolic blood pressure Diastolic blood pressure Provider Name and Address Organization Details Last Updated DateTime 4 162.56 cm 25.3 kg/m2 06126.8 g 54 /min 97 % 97 % 136 mm[Hg] 70 mm[Hg] Esperanza Maurer MA [facility] 4 09:49:19 Social History Question Answer Notes LastModified by Organizat ion Details LastModified Time Tobacco Smoking Status Current Every Day Smoker Zonia Crawford MA [facility] 06/24/2023 10:33:39 Do You Have An Advance Directive? No Information n ot available 06/24/2023 Are You Blind Or Do You Have Difficulty Seeing? No Information n ot available 06/24/2023 What Is Your Level Of Caffeine Consumption? Moderate Information not available 06/24/2023 In The 14 Days Before Symptom Onset, Have You Had Close Contact With A Laboratory-confirm ed COVID-19 While That Case Was Ill? No Information n ot available 12/10/2023 In The 14 Days Before Symptom Onset, Have You Had Close Contact With A Person Who Is Under Investigation For COVID-19 While That Person Was Ill? No Information not available 12/10/2023 Have You Been To An Area Known To Be High Risk For COVID-19? No Information not available 12/10/2023 Are You Deaf Or Do You Have Serious Difficulty Hearing? No Information not available 06/24/2023 What Type Of Diet Are You Following? REGULAR Information n ot available 06/24/2023 Are There Any Guns Present In Your Home? No Information not available 12/10/2023 What Was The Date Of Your Most Recent Tobacco Screening? 08/20/2024 Information not available 08/20/2024 What Is Your Current Pack Years? 20-29packyear s Information not available 06/24/2023 What Is Your Relationship Status? Information not available 06/24/2023 Do You Use Your Seat Belt Or Car Seat Routinely? Yes Information not available 06/24/2023 Do You Have Smoke And Carbon Monoxide Detectors In Your Home? Yes Information not available 06/24/2023 How Much Tobacco Do You Smoke? 1 PPD Information not available 06/24/2023 Do You Use Sunscreen Routinely? Yes Information not available 12/10/2023 Has Tobacco Cessation Counseling Been Provided? Yes Information not available 06/24/2023 On What Date Was Tobacco Cessation Counseling Provided? 08/20/2024 Information not available 08/20/2024 How Many Years Have You Smoked Tobacco? 30 Information not available 06/24/2023 Sex: Female Functional Status Question Answer Note LastModified by Organizat ion Details LastModified Time Do you use any illicit or recreational drugs? No Information not available 06/24/2023 Do you or have you ever used any other forms of tobacco or nicotine? No Information not available 06/24/2023 What is your level of alcohol consumption? Occasional Information not available 06/24/2023 Are you currently employed? No Retired Information not available 12/10/2023 Are you able to care for yourself? Yes Information not available 06/24/2023 What is your exercise level? None Information not available 06/24/2023 Mental Status Question Answer Note LastModified by Organization D etails LastModified Time Do you feel stressed (tense, restless, nervous, or anxious, or unable to sleep at night)? [id number] Information not available 06/24/2023 Family History Relationship Description Onset Age of this Age Resolved Age Notes LastModified by Organization Details LastModified Time Father Malignant tumor of colon [email or web address] Not available 04/2023 10:32:30 Sister Diabetes mellitus [email or web address] Not available 04/2023 10:32:39 Mother Heart disease [email or web address] Not available 04/2023 10:32:49 Medical History Condition Response Coronary Artery Disease N Other N Atrial Fibrillation N High Blood Pressure Y Thyroid Problems N Kidney or Bladder Problems N Depression Y COPD Y Blood Clots N GI Problems Y Have you had a mammogram in the last yea r? Y Skin Problems N Anemia N Heart Attack ([place]) N Diabetes N Anxiety Disorder Y Muscle, Joint, or Bone Problems N Seizures/Epilepsy N Have you had a colonoscopy in the last 1 0 years? Y Acid Reflux (GERD) Y Cancer N Stroke N Allergies N Asthma N Have you had a PSA blood test in the las t year? N High Cholesterol Y Hepatitis N Liver Disease N Headaches N Osteoporosis Y Heart Failure N Gynecological History Statement/Question Response If Post Menopausal, Age at Menopause 33 Obstetrics History GPAL:G 2 P 2 0 0 2 Type Value Full Term 2 Living 2 Total 2 Immunizations Vaccine Type Date Status Note Provider Myles gibson and Address Organization Details Recorded Time Influenza, split virus, quadrivalent, preservative 5 completed Meagan smith [place] - [facility] 05/13/2024 09:42:09 Influenza, high-dose, quadrivalent, PF 0 completed [place] sm[place] [facility] 05/13/2024 09:42:09 Influenza, high-dose, quadrivalent, PF 1 completed [place] [facility] 05/13/2024 09:42:09 Influenza, high-dose, quadrivalent, PF 2 [place] [facility] 05/13/2024 09:42:09 Influenza, high-dose, quadrivalent, PF 3 [place] [facility] 05/13/2024 09:42:09 COVID-19, mRNA, LNP-S, PF, 30 mcg/0.3 mL dose 1 [place] [facility] 05/13/2024 09:42:09 COVID-19, mRNA, LNP-S, PF, 30 mcg/0.3 mL dose 1 completed [place] [facility] 05/13/2024 09:42:09 COVID-19, mRNA, LNP-S, PF, 30 mcg/0.3 mL dose 1 completed [place] [facility] 05/13/2024 09:42:09 COVID-19, mRNA, LNP-S, PF, 30 mcg/0.3 mL dose, pancho-sucrose 2 completed [place] [facility] 05/13/2024 09:42:09 COVID-19, mRNA, LNP-S, bivalent, PF, 30 mcg/0.3 mL dose 2 completed [place] [facility] 05/13/2024 09:42:09 pneumococcal polysaccharide PPV23 0 completed [place] [facility] 05/13/2024 09:42:09 Pneumococcal conjugate PCV 13 4 completed [place] [facility] 05/13/2024 09:42:09 Influenza, high-dose, trivalent, PF 8 completed [place] [facility] 05/13/2024 09:42:09 Influenza, high-dose, trivalent, PF 6 completed [place] [facility] 05/13/2024 09:42:09 Influenza, high-dose, trivalent, PF 7 completed [place] [facility] 05/13/2024 09:42:09 Influenza, high-dose, trivalent, PF 9 completed [place] [facility] 05/13/2024 09:42:09 Influenza, split virus, trivalent, preservative 3 completed [place] [facility] 05/13/2024 09:42:09 Influenza, split virus, quadrivalent, PF 4 completed [place] [facility] 05/13/2024 09:42:09 Influenza, high-dose, trivalent, PF 4 completed Miles Bledsoe MD Attn: Accounting[address] [place], [address], [place] [facility] 01/04/2024 15:03:53 Past Encounters Encounter ID Performer Location Encounter Start Date Encounter Closed Date Diagnosis/Indication Diagnosis SNOMED-CT Code Diagnosis ICD10 Code Diagnosis Note [id number] Miles Bledsoe MD [facility] (Adult Med) [address] [place] [address] [id number] 0 06/24/2023 10:08:40 06/24/2023 11:23:49 Chronic obstructive pulmonary disease 75140503 J44.9 Gastroesop hageal reflux disease without esophagitis 183046150 K21.9 Anxiety 31443316 F41.9 Essential hypertension 43479185 I10 Hyperlipidemia 04552814 E78.5 Osteoporosis 61740327 M8 1.0 Numbness 22805973 R20.0 Irritable bowel syndrome 60569614 K58.9 Screening mammography 24 965231 Z12.31 [id number] Miles Bledsoe MD [facility] (Adult Med) [address] [place] [address] [id number] 0 12/10/2023 16:00:00 12/10/2023 17:47:28 Smoker 86941375 F17.200 Sinusitis 17112587 J32.9 COVID-19 019713722 U07.1 [id number] MD [facility] (Adult Med) [address] [place] [address] 58328-009 0 12/23/2023 11:07:35 12/23/2023 12:31:05 Essential hypertension 87659488 I10 Administra tion of influenza vaccine 06856508 Z23 Pre-surger y evaluation 453539021 Z01.818 Chronic ob structive pulmonary disease 31221878 J44.9 Gastroesop hageal reflux disease without esophagitis 611218164 K21.9 Anxiety 15887280 F41.9 [id number] Miles Bledsoe MD [facility] (Adult Med) [address] [place] [address] 75819-882 0 02/17/2024 09:36:40 02/17/2024 10:44:13 Smoker 51363669 F17.200 Vertigo 915366910 R42 [id number] Miles Bledsoe MD [facility] (Adult Med) [address] [place] [address] 84584-644 0 04/06/2024 10:45:16 04/06/2024 11:56:54 Smoker 89426336 F17.200 Body mass index 25-29 - overweight 493246210 Z68.26 Overweight 067926423 E66 .3 Essential hypertension 28182963 I10 Prediabetes 365551656 R7 3.03 [id number] Miles Bledsoe MD [facility] (Adult Med) [address] [place] [address] [id number] 0 05/14/2024 11:24:21 05/14/2024 12:38:37 Body mass index 25-29 - overweight 165942235 Z68.27 Overweight 618549943 E66 .3 Essential hypertension 01110461 I10 Prediabetes 280607513 R7 3.03 Gastroesop hageal reflux disease without esophagitis 531997663 K21.9 Hyperlipidemia 19297441 E78.5 Chronic ob structive pulmonary disease 93158440 J44.9 [id number] MD [facility] (Adult Med) [address] [place] [address] 67167-935 0 08/20/2024 11:03:51 08/20/2024 11:36:06 Smoker 53441021 F17.200 Overweight in adulthood with body mass index of 25 or more but less than 30 563090975 E66.3 Z68.28 Preoperative state 10196 002 Z01.818 Essential hypertension 88865301 I10 Hyperlipidemia 37774917 E78.5 Electrocar diogram abnormal 804087820 R94.31 Fatigue 56597663 R53.83 Health Concerns Section Related Observation LastModified by Organization Detai ls LastModified Time None Recorded Concern Status LastModified by Organization Details LastModified Time None Recorded Advance Directives Directive N: Payers Encounter Date Sequence Insurance Name Policy Number Policy Aguirre Covered Member ID Aguirre Member ID Guarantor Name 12/23/2023 1 [place] [id number] [place] 12/23/2023 2 [place] [id number] [place] 02/17/2024 1 [place] [id number] [place] 02/17/2024 2 [place] [id number] [place] 04/06/2024 1 [place] [id number] [place] 04/06/2024 2 [employer] [place] [id number] [place] 05/14/2024 1 [place] [id number] [place] 05/14/2024 2 [employer] [place] [id number] [place] Notes Date Note Type Note Provider Name and Address Organization Details Recorded Time 12/23/2023 text/html hypertension no headache or dizziness. Cataract surgery evaluation breathing has been fine and COVID recently completely resolved. COPD no cough wheezing no shortness a breath. GERD no nausea vomiting or heartburn. Hyperlipidemia she does try to follow a low-fat diet. Anxiety stable Miles Bledsoe MD Attn: Accounting[address] [facility], [place], [address], [place] [facility] 01/04/2024 15:06:11 02/17/2024 text/html fall ER no traum a no injury and she describes dizziness on further questioning it sounds like she has vertigo because it is when she moves her head or at times at rest that she will feel like the world is spinning around. Sometimes when she breaks her vision and looks up or down quickly she can precipitate the symptoms there was really no tinnitus ear pain slurred speech blurred vision unilateral numbness or tingling Miles Bledsoe MD Attn: Accounting[address] [facility], [place], [address], [place] [facility] 02/21/2024 21:57:22 04/06/2024 text/html slow improvement continues to smoke vertigo going away therapy seems to help her leg but blood pressure still remains high lab work showed she is prediabetic with a hemoglobin A1c of 6.2 Miles Bledsoe MD Attn: Accounting[address] [place], [address], [facility] - [facility] 04/10/2024 17:21:58 05/14/2024 text/html hypertension her blood pressure is better with the if the addition of the nifedipine no side effects. GERD no nausea vomiting no heartburn. Hyperlipidemia she was trying to buckle down on eating less saturated fats. COPD no cough or wheezing or shortness of breath at this time Miles Bledsoe MD Attn: Accounting[address] [place], [address], [facility] - [facility] 05/15/2024 16:56:23 OBGyn Episode No OBEpisode recorded.
--- OUTSIDE RECORDS SUMMARY | 2024-08-27 07:24 | XMS_ITS | Referral Summary ---
Author Organization [address] Address [address] [place] [address] Care Team Providers Care Hand Heel Seat Fitter Name Role Phone Reilly Bledsoe MD Primary Care Provider [phone] Allergies No known active allergies Medications atorvastatin (LIPITOR) 20 mg tablet take 1 tablet by ORAL route every day 0 0 5 Active Additional Information Patient taking differently:20 mgoral Daily, Reported on 10/30/2017 carvedilol (COREG) 12.5 mg tablet take 1 tablet by ORAL route every day with food 0 0 5 Active Additional Information Patient taking differently:12.5 mgoral Daily, Reported on 10/30/[address] (PROTONIX) 40 mg EC tablet take 1 tablet (40MG) by oral route every day 0 2 Active Additional Information Patient taking differently:40 mgoral Daily, Reported on 10/30/2017 ALPRAZolam (XANAX) 0.5 mg tablet take 1 tablet (0.5MG) by ORAL route 3 times every day 0 2 Active Additional Information Patient taking differently:0.5 mgoral 3 times daily PRN, Reported on 10/30/2017 mirtazapine (REMERON) 30 mg tablet take 1 tablet (30MG) by oral route every day before bedtime 0 2 Active Additional Information Patient taking differently:30 mgoral Nightly, Reported on 10/30/2017 promethazine (PHENERGAN) 25 mg tablet TAKE ONE TABLET BY MOUTH EVERY 6 HOURS NEEDED FOR NAUSEA OR VOMITING 60 tablet 7 Active ibuprofen (ADVIL,MOTRIN) 800 mg tablet Take 800 mg by mouth 3 (three) times a day. Active fluticasone-pao meterol (ADVAIR DISKUS) 250-50 mcg/dose diskus inhaler Inhale 1 puff 2 (two) times a day. Rinse mouth with water after use to reduce aftertaste and incidence of candidiasis. Do not swallow. Active albuterol HFA (PROVENTIL HFA,VENTOLIN HFA,PROAIR HFA) 90 mcg/actuation inhaler Inhale 2 puffs every 4 (four) hours as needed for wheezing. Active polyethylene glycol (MIRALAX) 17 gram/dose powder DISSOLVE 17GM OF POWDER IN WATER AND DRINK TWICE DAILY 1020 g 11 8 Active Additional Information Patient not taking.Reported on 07/17/2018 polyethylene glycol (MIRALAX) 17 gram packetIndicatio ns:constipation Take 1 packet (17 g total) by mouth daily 50 packet 9 Active linaclotide (LINZESS) 290 mcg capsule Take 1 capsule (290 mcg total) by mouth daily 48 capsule 9 Active telmisartan (MICARDIS) 20 mg tablet Take 20 mg by mouth daily Active linaCLOtide (LINZESS) 290 mcg capsule Take 1 capsule (290 mcg total) by mouth daily 24 capsule 0 Active dicyclomine (BENTYL) 20 mg tablet Take 1 tablet (20 mg total) by mouth 4 (four) times a day 120 tablet 6 3 Active Active Problems Problem Noted Date Diagnosed Date Encounter for screening colonoscopy 06/27/2023 Family history of colon cancer 11/30/2018 Overview (11/30/2018): Added automatically from request for surgery [id number] Family history of colon cancer in father 018 Overview (10/01/2017): Added automatically from request for surgery [id number] Abdominal pain 10/01/2017 Overview (10/15/2017): Added automatically from request for surgery [id number] Irritable bowel syndrome wit h both constipation and diarrhea 12/09/2016 Assessment & Plan (05/14/2019 2:21 PM RESEARCH SCIENTIST): In panic due to insurance change and now Linzess is $200/mpnth. Discussed increased miralax as alternative and gave her our last samples of linzess. Return prn Assessment & Plan (07/17/2018 2:40 PM CDT): On linzess 290 qd AND miralax she is doing well. Will continue the regimen and return prn. Assessment & Plan (06/01/2018 3:42 PM CDT): Now c/o severe constipation in miralax bid and she says the hi fiber diet but she is so fraantic all is questionable. Discussed options and she will try addition of linzess 290/d and return 4 weeks. Assessment & Plan (12/04/2017 2:28 PM CDT): Faithfully and accurately following hi fiber diet with quewstran once/d and is pleased with 1-2 formed bm/d. Continue regimen and return prn Assessment & Plan (11/10/2017 2:10 PM CDT): EGD normal and colon poor vis. Still erratic bms but also erratic and low fiber intake. Reviewed endo findings, lifestyle and Hx ibs. Will try hi fiber diet and poop sheet and recap in 4 weeks. Assessment & Plan (09/30/2017 1:30 PM CDT): Has swoitched to D 4-5/day. Diet erratoic. With back strain was on hi dose steroids and nsaids whan change in bms occurred. C/o pc bloating and knot in epi intermittently. Weight gain on the steroids. Fearful of ca (like her dad). Will colonoscope and bx for microscopic colitis and then recap in office ways to make her better. Assessment & Plan (12/09/2016 3:12 PM CDT): Last colon 05/07. Father colon ca. ibs-c forever. Presently 6-8 grams fiber/d and miralax haphazard through the day in beverages. Offered immediate colonoscopy or trial of hi fiber diet and miralax. She chose latter and if not acceptable result either Dr Jennings can colonoscope in my absence or await my return. Social History Tobacco Use Types Packs/Day Years Used Date Smoking Tobacco: Every Day Cigarettes Smokeless Tobacco: Never Tobacco Cessation:Ready to Q uit: No; Counseling Given: Yes Alcohol Use Standard Drinks/Week Comments Yes 0 (1 standard drink = 0.6 oz pur e alcohol) Very light - social PHQ-2 Answer Date Recorded PHQ-2 Score 0 05/14/2019 Comments No Sex and Gender Information Value Date Recorded Sex Assigned at Not on file Legal Sex Female 2:20 AM RESEARCH SCIENTIST Gender Identity Not on file Sexual Orientation Not on file Last Filed Vital Signs Vital Sign Reading Time Taken Comments Blood Pressure 158/82 05/14/2019 2:06 PM RESEARCH SCIENTIST Pulse 61 05/14/2019 2:06 PM RESEARCH SCIENTIST Temperature 36.5 C (97.7 F) 05/14/2019 2:06 PM RESEARCH SCIENTIST Respiratory Rate 18 05/14/2019 2:06 PM RESEARCH SCIENTIST Oxygen Saturation 98% 05/14/2019 2:06 PM RESEARCH SCIENTIST Inhaled Oxygen Concentration - - Weight 78.7 kg (173 lb 9.6 oz) 05/14/2019 2:06 P M RESEARCH SCIENTIST Height 162.6 cm (5' 4) 05/14/2019 2:06 PM RESEARCH SCIENTIST Body Mass Index 29.8 05/14/2019 2:06 PM RESEARCH SCIENTIST Plan of Treatment Not on file Insurance [facility] MEDICARE MEDICARE [facility] Advance Directives For more information, please contact: [phone] * Full Code (Latest Code Status on File) Date Activated Date Inactivated Comments 01/07/2019 9:10 AM 01/07/2019 2:40 PM * Full Code Date Activated Date Inactivated Comments 01/07/2019 9:10 AM 01/07/2019 9:10 AM * Full Code Date Activated Date Inactivated Comments 10/30/2017 6:56 AM 10/30/2017 11:15 AM Care Teams Hand Heel Seat Fitter Relationship Specialty Start Date End Date Reilly Bledsoe MD PCP - General Internal Medicine 09/29/17
--- OUTSIDE RECORDS SUMMARY | 2024-08-27 07:24 | XMS_ITS | Continuity of Care Document ---
Author Organization [facility] Address [address] [place] [address] Phone Care Team Providers Care Motor Coach Bus Driver Name Role Phone Reilly Pinon MD, MD Unavailable Unavaila ble Procedures Procedure Date Scheduling Rescheduling Medical Testimon y Medical Testimony Deposition Work/medical disability examination Rupa Record Review X-ray exam of knee, 1 or2 views 006 X-ray exam of both knees, standing Advance Directives Directive Yes / No Effective Date File Name No Information Encounters Encounter Description Practice Location Reason(s) For Visit Diagnoses Date Provider Providers Copied on Encounter [facility], [address], [id number], [phone] [facility] No Information [address] [facility], [facility] [address], [place], [place], [id number] , [place]. tel: [phone] Work/medical disability examination Rupa [facility] [employer] [facility], [address] [place] [address], [id number], [place] tel:[phone] [facility] [employer] [facility] No Information 6 [address] [facility], [facility] [address], [place], [place], [id number] , [place]. tel: [phone] Family History Family Member Type Diagnosis Age At Onset No Information Payers Payer name Insurance type Covered constitution party ID Authoriza tion(s) No Information Social History Type Description Quantity Date Captured Comments Sex Female Smoking Status No Information Chief Complaint And Reason For Visit No Information Reason For Referral Reason For Referral No Information History Of Present Illness Encounter Date Complaint History Of Prese nt Illness No Information Functional Status Date Functional Assessmen t No Information Instructions Date Instruction Additional Infor mation No Information Assessments Type Assessment Date No Information Patient Care Teams Name Effective Dates (start - stop) Status Members No Information
--- OUTSIDE RECORDS SUMMARY | 2024-08-27 07:24 | XMS_ITS | Clinical Summary ---
Author Organization [facility] Address [address] [place] [address] Phone Care Team Providers Care Alternative Energy Technician Name Role Phone Reilly Bledsoe MD Primary Care Provider [phone] Allergies No known active allergies Medications ALPRAZolam (XANAX) 0.5 mg tablet Take 0.5 mg by mouth 3 times daily. Active mirtazapine (REMERON) 30 mg tablet Take 30 mg by mouth daily at bedtime. Active carvediloL (COREG) 12.5 mg tablet Take 12.5 mg by mouth daily. Active pantoprazole (PROTONIX) 40 mg Tablet, Delayed Release (E.C.) Take 40 mg by mouth daily. Active promethazine (PHENERGAN) 25 mg tablet Take 25 mg by mouth every 6 hours as needed. Active dicyclomine (BENTYL) 20 mg tablet Take 20 mg by mouth 4 times daily. Active atorvastatin (LIPITOR) 20 mg tablet Take 20 mg by mouth daily. Active fluticasone propion-salmete roL (ADVAIR DISKUS,WIXELA INHUB) 250-50 mcg/dose disk inhaler Take 1 Puff by inhalation 2 times daily. Active telmisartan (MICARDIS) 20 mg Tablet Take 20 mg by mouth daily. Active albuterol sulfate 90 mcg/Actuation inhaler Take by inhalation every 6 hours as needed. 1 Active polyethylene glycol 3350 (MIRALAX) 17 gram/dose Powder Take 17 Grams by mouth 2 times daily. 9 Active tiZANidine (ZANAFLEX) 4 mg Tablet Take 1 Tablet (4 mg) by mouth every 6 hours as needed for Spasm or Other (See Comment) (neck discomfort). 40 Tablet 1 Active Active Problems Problem Noted Date Diagnosed Date Spinal cord compression due to degenerative disorder of spinal column 12/07/2020 Immunizations Immunization Administration Dates Next Due (PFIZER)(12 YR UP) COVID-19 VACCINE - EMERGENCY USE AUTHORIZATION, MRNA, [id number](PF) 30 MCG/0.3 ML IM SUSP 06/06/2020,05/16/2020 Family History Medical History Relation Name Comments Cancer Father Diabetes Father Hypertension Father Hypertension Maternal Grandmother Heart Disease Mother Hypertension Mother Hypertension Paternal Grandmother Diabetes Sister Hypertension Sister Relation Name Status Comments Father Maternal Grandmother Mother Paternal Grandmother Sister Social History Tobacco Use Types Packs/Day Years Used Date Smoking Tobacco: Former Cigarettes 1 50 Smokeless Tobacco: Never Alcohol Use Standard Drinks/Week Comments Yes 0 (1 standard drink = 0.6 oz pur e alcohol) social Comments No Sex and Gender Information Value Date Recorded Sex Assigned at Not on file Legal Sex Female 11:53 PM CDT Gender Identity Not on file Sexual Orientation Not on file Last Filed Vital Signs Vital Sign Reading Time Taken Comments Blood Pressure 152/87 08/07/2021 9:48 AM CDT Pulse 61 08/07/2021 9:48 AM CDT Temperature 36.5 C (97.7 F) 08/07/2021 9:48 AM CDT Respiratory Rate 20 12/09/2020 9:59 AM CDT Oxygen Saturation 90% 12/09/2020 12:45 PM CDT Inhaled Oxygen Concentration - - Weight 69.4 kg (153 lb) 08/07/2021 9:48 AM CDT Height 160 cm (5' 3) 08/07/2021 9:48 AM CDT Body Mass Index 27.1 08/07/2021 9:48 AM CDT Plan of Treatment Health Maintenance Due Date Last Done Comments DTAP/TDAP/TD VACCINES (1 - Tdap) 11/27/1967 COLORECTAL SCREENING 1993 Colorectal Cancer Screening 1993 FIT-DNA Q 3 years 1993 FIT/FOBT Q 1 year 1993 Flex Sig/CT Colonography Q 5 years 1993 ZOSTER VACCINE (1 of 2) 1998 OSTEOPOROSIS SCREENING 2013 INFLUENZA VACCINE (#1) 2023 , 12/27/2019, 02/03/2019, Additional history exists COVID-19 Vaccine (5 - 2023-2 5 season) 2023 06/22/2021, 01/01/2021, 06/06/2020, Additional history exists RSV VACCINE (60+ or ) (1 - 1-dose 75+ series) 11/27/2023 PNEUMOCOCCAL VACCINE 50+ YEARS Completed 01/19/2020 , 02/01/2014 Medical Devices Implanted Type Area Manager Commodities Device Identifier Shelf Expiration Date Model / Serial / Lot Hemostatic Surgiflo 8ml W/Thrombin 2994 - [id number] Implanted:Qt y: 1 on 12/07/2020 by Tyrell Menjivar MD at [facility] Hemostatic N/A: Spine Cervical Posterior [employer]- [employer] [id number] 04/23/2022 2994 / / [id number] Vuepoint Ii Raza 3.5 C 60 Mm Implanted:Qt y: 1 on 12/07/2020 by Tyrell Menjivar MD at [facility] Raza N/A: Spine Cervical Posterior [employer] [id number] / NO LOAD # CONTACTED STERILE PROCESSING / STERILIZED 12-07-20 Screw Vpnt Tulip [id number] - Sno Load # Contacted Sterile Processing Implanted:Qt y: 4 on 12/07/2020 by Tyrell Menjivar MD at [facility] Screw N/A: Spine Cervical Posterior [employer] [id number] / NO LOAD # CONTACTED STERILE PROCESSING / STERILIZED 12-07-20 Description:All Nuvasive cer vical hardware was processed on requisition, [id number]. Vuepoint Ii Screw 3.5 X 12 Fa Implanted:Qt y: 4 on 12/07/2020 by Tyrell Menjivar MD at [facility] Screw N/A: Spine Cervical Posterior [employer] [id number] / NO LOAD # CONTACTED STERILE PROCESSING / STERILIZED 12-07-20 Btkr,Cervica l Fusion Insurance MEDICARE PART A AND B [facility] [id number] [place] [id number] Advance Directives For more information, please contact: [phone] * Full Code (Latest Code Status on File) Date Activated Date Inactivated Comments 12/07/2020 2:15 PM 12/09/2020 8:24 PM Care Teams Alternative Energy Technician Relationship Specialty [place] [address] [place] [id number] PCP - General Internal Medicine 11/29/20
--- OUTSIDE RECORDS SUMMARY | 2024-08-27 07:24 | XMS_ITS | Clinical Summary ---
Author Organization [address] Address [address] [place] [id number] Care Team Providers Care Waybill Clerk Name Role Phone Reilly Bledsoe MD Primary Care Provider [phone] Allergies No known active allergies Medications atorvastatin [...] (11/30/2018): Added automatically from request for surgery [id number] Family history of colon cancer in father 018 Overview (10/01/2017): Added automatically from request for surgery [id number] Abdominal pain 10/01/2017 Overview (10/15/2017): Added automatically from request for surgery [id number] Irritable bowel syndrome wit h both constipation and diarrhea 12/09/2016 Assessment & Plan (05/14/2019 2:21 PM 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 Surgical History Surgery Date Site/Laterality Comments TONSILLECTOMY 03/24/1978 - 03/23/1979 tonsillectomy BLADDER REPAIR 03/24/1990 - 03/23/1991 bladder repair OTHER SURGICAL HISTORY 03/24/1991 - 03/23/1992 arthroscopy on rt knee HYSTERECTOMY 03/24/1979 - 03/23/1980 Hysterectomy APPENDECTOMY 03/24/1996 - 03/23/1997 Appendectomy KNEE ARTHROPLASTY 03/24/2004 - 03/23/2005 Knee replacement COLONOSCOPY 04/30/2013 Medical History Medical History Date Comments Irritable bowel syndrome Irritab le bowel disease Depression Depression Hx Other Medical Gastroesophagea l reflux disease Hypertension Hypertension COPD (chronic obstructive pu lmonary disease) (HCC) GERD (gastroesophageal reflux disease) Family History Medical History Relation Name Comments Pancreatic cancer Cousin 2 Cancer, pa ncreas; Cause of : Cancer, pancreas Colon cancer Father Cancer, colon; Heart disease Mother Heart disease; Hypertension Mother Hypertension; Pancreatic cancer Mother's Brother 2 Can er, pancreas; Cause of : Cancer, pancreas Pancreatic cancer Mother's Sister Relation Name Status Comments Cousin 1 Cousin 2 Father Mother Mother's Brother 1 Mother's Brother 2 Mother's Sister Social History Tobacco Use Types Packs/Day [...] on file Legal Sex Female 2:20 AM CHIEF BUILDING INSPECTOR Gender Identity Not on file Sexual Orientation Not on file Obstetrics History Last Filed Vital Signs Vital Sign Reading Time Taken Comments Blood Pressure 158/82 05/14/2019 2:06 PM CHIEF BUILDING INSPECTOR Pulse 61 05/14/2019 2:06 PM CHIEF BUILDING INSPECTOR Temperature 36.5 C (97.7 F) 05/14/2019 2:06 PM CHIEF BUILDING INSPECTOR Respiratory Rate 18 05/14/2019 2:06 PM CHIEF BUILDING INSPECTOR Oxygen Saturation 98% 05/14/2019 2:06 PM CHIEF BUILDING INSPECTOR Inhaled Oxygen Concentration - - Weight 78.7 kg (173 lb 9.6 oz) 05/14/2019 2:06 P M CHIEF BUILDING INSPECTOR Height 162.6 cm (5' 4) 05/14/2019 2:06 PM CHIEF BUILDING INSPECTOR Body Mass Index 29.8 05/14/2019 2:06 PM CHIEF BUILDING INSPECTOR Plan of Treatment Not on file Insurance [facility] MEDICARE MEDICARE [facility] Advance Directives For more information, please contact: [phone] * Full Code (Latest Code Status on File) Date Activated Date Inactivated Comments 01/07/2019 9:10 AM 01/07/2019 2:40 PM * Full Code Date Activated Date Inactivated Comments 01/07/2019 9:10 AM 01/07/2019 9:10 AM * Full Code Date Activated Date Inactivated Comments 10/30/2017 6:56 AM 10/30/2017 11:15 AM Care Teams Waybill Clerk Relationship Specialty Start Date End Date Reilly Bledsoe MD PCP - General Internal Medicine 09/29/17
[2024-08-27 07:57] LABS: Basophils Absolute Auto 0.1 K/mm3 (0.0-0.1); Basophils Percent Auto 0.8 % (0.2-1.2); Eosinophils Absolute Auto 0.2 K/mm3 (0-0.3); Eosinophils Percent Auto 2.9 % (0-4.4); Hematocrit 43.5 % (37.0-47.0); Hemoglobin 14.1 g/dL (12.0-15.0); Immature Granulocyte Absolute 0.03 K/mm3 (0.00-0.031); Immature Granulocyte Percent A 0.4 % (0-0.5); Lymphocytes Absolute Auto 2.67 K/mm3 (0.9-3.2); Lymphocytes Percent Auto 36.5 % (18.3-44.2); Mean Corpuscular HGB Conc 32.4 g/dl (32-36); Mean Corpuscular Hemoglobin 31.3 pg (26-34); Mean Corpuscular Volume 96.5 fl (80-100); Mean Platelet Volume 10.9 fl (7.4-10.4); Monocytes Absolute Auto 0.6 K/mm3 (0.1-0.6); Monocytes Percent Auto 8.8 % (2.6-8.5); Neutrophils Absolute Auto 3.7 K/mm3 (1.3-6.7); Neutrophils Percent Auto 50.6 % (45.5-73.1); Platelet Count Result 227 k/mm3 (150-375); Red Blood Count 4.51 M/mm3 (4.2-5.4); White Blood Count 7.3 K/mm3 (4.5-10.0)
[2024-08-27 08:05] LABS: Alanine Aminotransferase 15 U/L (6-35); Albumin Level 4.5 g/dL (3.5-5.1); Alkaline Phosphatase 131 U/L (38-126); Anion Gap 6 mmol/L (4-12); Aspartate Amino Transferase 28 U/L (14-36); Bilirubin,Total 0.6 mg/dL (0.2-1.3); Blood Urea Nitrogen 17 mg/dL (7-17); Calcium 10.1 mg/dL (8.4-10.2); Carbon Dioxide 28 mmol/L (22-30); Chloride 105 mmol/L (98-107); Cholesterol 189 mg/dL (0-200); Estimated Glomerular Filt Rate > 60; Glucose 110 mg/dL (65-110); HDL Direct 43 mg/dL; Potassium 4.6 mmol/L (3.4-5.0); Sodium 139 mmol/L (137-145); Total Protein 7.7 g/dL (6.3-8.2); Triglycerides 325 mg/dL (<150)
[2024-08-27 08:37] LABS: LDL Cholesterol Direct 83 mg/dL
[2024-08-27 09:08] LABS: Free T3 3.65 pg/mL (2.45-5.93); Free T4 Free Thyroxine 1.15 ng/dL (0.78-2.19)
[2024-08-27 09:33] LABS: Folic Acid 9.6 ng/mL (2.76->20)
== END 2024-08-27 07:18 | disposition home or self-care (01) ==
PROVIDERS: PCP Internal Medicine; Visit Provider Internal Medicine
DX: R94.31 Abnormal electrocardiogram [ECG] [EKG] (principal); I10 Essential (primary) hypertension; R53.83 Other fatigue; I45.10 Unspecified right bundle-branch block
CPT/HCPCS: 36415; 80053; 80061; 82607; 82746; 84439; 84443; 84481; 85025; 93005; 93306

== ENCOUNTER 2024-09-15 01:07 | Day surgery (SDC) | payer MEDICARE, SELFPAY ==
--- NOTE | 2024-09-06 13:28 | PC.NURSE ---
Report to the Outpatient Waiting Room, entrance under the green pavilion located off [facility], at time __6 am on date _09/15/24 . Planned Procedure Time: __7:30am .? Time changes happen often and if your time is changed the preop area will call you the afternoon before. - You and your visitor will be asked to self-screen and do not enter if you have any COVID symptoms. Please call surgeon if you need to reschedule. - A mask is optional within the hospital at this time. Patients may have clear liquids (water, carbonated beverages, clear teas, apple juice) until 3 hours prior to surgery ( 4:30 am)with a maximum of 20 ounces. - No food from midnight until time of surgery and no smoking, or chewing tobacco (or any form of nicotine). No chewing gum, candy or mints. - Take only the following medications with a SIP of water on the morning of surgery: _alprazolam,carvedilol,nifedipine,hydroxyzine DO NOT STOP ANY OF YOUR OTHER PRESCRIPTION MEDICATIONS PRIOR TO SURGERY EXCEPT THE FOLLOWING Hold all vitamins and supplements for 3 days per anesthesiologist.last dose 09/11/24 Medications to discontinue per physician none Please no make-up, nail luxembourgish, hairspray, perfume, deodorant, or body powder the day of surgery.? No jewelry (including any body piercings) or valuables the day of surgery, leave them at home.? Please take a shower or bath the night before, or the morning of, surgery with an antibacterial soap.? Wear comfortable, loose fitting clothing.? Children are encouraged to wear pajamas. - Jewelry must be removed prior to entering the operating room.? Rings and piercings that are not removed may be cut off. - The hospital will not accept responsibility for valuables.? - Please leave all valuables, including medications, at home the day of surgery. If you are going home after surgery, a licensed explosives truck driver must drive you home.? - NO public transportation without another adult if you receive anesthesia. - We recommend that an adult stay with you for 24 hours following discharge. - We also recommend that you do not drive, make important decision, drink alcoholic beverages, or take any drugs that were not prescribed by your health care provider for at least 24 hours after your discharge time. For Pediatric surgeries, we recommend two adults accompany the child home. Follow any additional instructions given to you from your surgeon. Telephone instructions given to __patient and asked if any additional questions and then verbalized understanding. Patient advised to call surgeon office or pre surgery nurse liaison [phone] if any additional questions.
[2024-09-06 13:46] VITALS: BMI 27.4
--- NOTE | 2024-09-09 06:52 | P.HP_ITS ---
H&P: HPI History of Present Illness Date/Time: 09/09/24 06:52 Chief Complaint: Patient shoulder pain right. She has a rotator cuff tear this been unresponsive to conservative treatment. She would like to proceed with rotator cuff repair and distal clavicle excision. Review of Systems Musculoskeletal: Musculoskeletal: Reports back pain, Reports arthralgias, Reports joint swelling and Reports stiffness [facility] Past Medical History Medical History Smoker Depression Anxiety Osteoporosis COPD (chronic obstructive pulmonary disease) HTN (hypertension) Hypercholesterolemia BMI 28.0-28.9,adult Surgical History Surgical History History of back surgery c3-c4 laminectomy posterior fusion with arthrodesis fusion with nuvasive lateral mass/ pedicle screw system arthodeses using local morselized lamina Status post shoulder surgery Left shoulder acromioplasty and distal clavicle excision May 2020 H/O left knee surgery [place] 2004 Dr. Petersen History of appendectomy H/O right knee surgery 2006 - [facility] Dr. Petersen 1991 Dr perry - arthroscopic 1992 tibia repair - Dr. Villegas 1997 arthroscopic - Dr. Villegas H/O: hysterectomy Hx of tonsillectomy Family History Family History Mother Hypertension Heart disease Father Hypertension Diabetes mellitus Malignant neoplasm of prostate Cancer Social History Social History Smoking packs per day: 1 Smoking cigarettes per day: 20.0 Years smoked: 60 Smoking pack-years: 60.00 Smoking status: Current every day smoker Tobacco type: cigarettes Additional smoking assessment comments: TAPERING DOWN SMOKING CURRENTLY TO ~ 1/2 PACK/DAY Alcohol intake: current Drinks per week: 5 Alcohol use details: occasional Substance use: never Do You Feel Safe in your Home?: Yes Lack of Transportation: No Lack of Food: Never True Current Housing: I Do Not Have Housing Concerned About Future Housing: No Difficulty Paying Gas/Electric Bills: No Difficulty Paying for Meds: No Currently Unemployed: No Education: High School Diploma/GED Difficulty w/ Childcare or Family Care: No Living arrangements: with family Additional living arrangements comments: [facility] Occupation/Education: retired Gender identity (if verbalized by the patient): Male Spiritual care concerns: No Meds Home Medications and Allergies Home Medications ?Medication ?Instructions ?Recorded ?Confirmed ?Type alprazolam 0.5 mg tablet 0.5 mg PO TID PRN Anxiety 10/19/19 09/06/24 History atorvastatin 20 mg tablet 20 mg PO QAM 10/19/19 09/06/24 History carvedilol 12.5 mg tablet 12.5 mg PO Q12H 10/19/19 09/06/24 History dicyclomine 20 mg tablet 20 mg PO QID 10/19/19 09/06/24 History mirtazapine 30 mg tablet 30 mg PO HS 10/19/19 09/06/24 History pantoprazole 40 mg tablet,delayed 40 mg PO QAM 10/19/19 09/06/24 History release polyethylene glycol 3350 17 17 gm PO BID 10/19/19 09/06/24 History gram/dose oral powder telmisartan 20 mg tablet 20 mg PO QAM 10/19/19 09/06/24 History hydroxyzine HCl 25 mg tablet 25 mg PO .QD PRN anxiety 04/13/24 09/06/24 History nifedipine 30 mg tablet,extended 30 mg PO DAILY 04/13/24 09/06/24 History release diclofenac sodium 75 mg 75 mg PO BID #60 tabs 06/29/24 09/06/24 Rx tablet,delayed release Vitamin B-Complex 09/06/24 History celecoxib 200 mg capsule 200 mg PO Q24H 09/06/24 09/06/24 History magnesium 250 mg tablet 250 mg PO DAILY 09/06/24 09/06/24 History vitamin B complex (Vitamins B 1 cap PO DAILY 09/06/24 09/06/24 History Complex capsule) Allergies Allergy/AdvReac Type Severity Reaction Status Date / Time No Known Allergies Allergy Verified 09/06/24 13:28 Exam Narrative: On exam she has difficulty raising her arm above the horizontal. She is weak in abduction external rotation has give-way in impingement. Neurologically she is intact. She has pain with any manipulation of her shoulder. Eyes: General: appearance normal, both eyes and all related structures Neck: Neck: supple Resp: Effort & Inspection: normal respiratory effort Cardio: Rate: regular rate Rhythm: regular rhythm Radiology Reports: Comments: Magnetic Resonance Report Signed Patient: Duyen Do MRI of the right shoulder Technique: Axial proton-density fat-sat images, coronal proton density fat-sat and T2 fat-sat images, and sagittal T1-weighted and T2 fat-sat images were acquired. Clinical History: Pain Findings: There is mild AC joint degenerative change. Coracoclavicular, coracoacromial, and coracohumeral ligaments are intact. There is advanced supraspinatus and infraspinatus tendinosis. There is a focal low-grade interstitial tear at the distal infraspinatus tendon insertion region. No high-grade partial or full-thickness tear. Tendon of the long head of biceps is intact. Subscapularis tendon is intact. No definite labral tear identified. Inferior glenohumeral ligament is intact. There is moderate to large glenohumeral joint effusion, nonspecific. There is associated fluid distention of the bicipital tendon sheath. No significant degenerative change of glenohumeral joint. No muscle atrophy or edema. Impression: Advanced supraspinatus and infraspinatus tendinosis with focal low-grade linear interstitial tear of the distal infraspinatus tendon insertion. No high-grade partial or full-thickness rotator cuff tear. Moderate to large glenohumeral joint effusion, nonspecific. Consider joint aspiration if indicated. Mild AC joint degenerative change. Reviewed, dictated and finalized at location . 8: Hip/Pelvis X-Ray 02/13/24 Knee X-Ray 04/13/24 Shoulder X-Ray 05/20/24 Shoulder MRI 06/24/24 Orthopedics Result Report 05/20/24 Assessment and Plan Assessment and plan (1) Rotator cuff tear, right: Code(s): M75.101 - Unspecified rotator cuff tear or rupture of right shoulder, not specified as traumatic Status: Acute Assessment and Plan: Patient has rotator cuff tearing on the right. She also has acromioclavicular arthritis. She has been unresponsive the conservative treatment. She has failed medicine therapy cortisone exercise and time. She would like to consider surgical relief. Will proceed with rotator cuff debridement repair distal clavicle excision an arthroscopy of the shoulder. I have discussed this with her at length including the risks, benefits, limitations, and alternatives. (2) Acromioclavicular arthrosis: Code(s): M19.019 - Primary osteoarthritis, unspecified shoulder Status: Acute
[2024-09-15] VITALS (10 sets, daily range): BP systolic 130–158; BP diastolic 63–81; PULSE 52–68; RESP 12–18; TEMP 36.2–36.3; O2SAT 92–99
[2024-09-15] MEDS: LACTATED RINGERS 1,000 ML 30 ML IV CONT ×2 (06:30→09:09)
[2024-09-15] MEDS: KETOROLAC 15 MG/ML VIAL (*BKC) IV PUSH (06:45)
[2024-09-15] MEDS: ACETAMINOPHEN 500 MG TABLET 1000 MG PO (06:45)
--- NOTE | 2024-09-15 06:55 | WPDHPUPDATE1 ---
History and Physical Update Update Date/Time: 09/15/24 06:55 History and Physical has been reviewed, including an updated exam of the patient. There are NO changes in the patient's condition. Risks, benefits, and alternatives have been discussed and questions answered. Patient agrees to proceed with procedure.
--- NOTE | 2024-09-15 07:17 | WPDANESEPPF ---
Anes - Initial Pre Proc Eval Procedure: Operation Date: 09/15/24 07:30 Proposed Procedures p Right Shoulder Arthroscopy, Open Rotator Cuff Repair, Trapezius Debridement, Distal Clavicle Excision, Proceed as Indicated - Jonnie Crawford MD Date/Time: 09/15/24 07:17 Surgeon: Jonnie Crawford MD Pre Op Diagnosis: other rt shoulder lesions, oa rt shoulder Patient Data Age: 73 Gender: F Height: 1.63 m Weight: 73 kg Last Vital Signs Temp 97.4 F L 09/15/24 06:48 Pulse 60 09/15/24 06:48 Resp 16 09/15/24 06:48 BP 149/81 H 09/15/24 06:48 Pulse Ox 98 09/15/24 06:48 O2 Del Method Room Air 09/15/24 06:48 Allergies Allergy/AdvReac Type Severity Reaction Status Date / Time No Known Allergies Allergy Verified 09/15/24 06:46 Home Medications ?Medication ?Instructions ?Recorded ?Confirmed ?Type alprazolam 0.5 mg tablet 0.5 mg PO TID PRN Anxiety 10/19/19 09/06/24 History atorvastatin 20 mg tablet 20 mg PO QAM 10/19/19 09/06/24 History carvedilol 12.5 mg tablet 12.5 mg PO Q12H 10/19/19 09/15/24 History dicyclomine 20 mg tablet 20 mg PO QID 10/19/19 09/06/24 History mirtazapine 30 mg tablet 30 mg PO HS 10/19/19 09/06/24 History pantoprazole 40 mg tablet,delayed 40 mg PO QAM 10/19/19 09/06/24 History release polyethylene glycol 3350 17 17 gm PO BID 10/19/19 09/06/24 History gram/dose oral powder telmisartan 20 mg tablet 20 mg PO QAM 10/19/19 09/06/24 History hydroxyzine HCl 25 mg tablet 25 mg PO .QD PRN anxiety 04/13/24 09/06/24 History nifedipine 30 mg tablet,extended 30 mg PO DAILY 04/13/24 09/06/24 History release diclofenac sodium 75 mg 75 mg PO BID #60 tabs 06/29/24 09/06/24 Rx tablet,delayed release Vitamin B-Complex 09/06/24 History celecoxib 200 mg capsule 200 mg PO Q24H 09/06/24 09/06/24 History magnesium 250 mg tablet 250 mg PO DAILY 09/06/24 09/06/24 History vitamin B complex (Vitamins B 1 cap PO DAILY 09/06/24 09/06/24 History Complex capsule) Patient hx anesthesia problems: none Family hx anesthesia problems: none Results Review: All pre-operative results and documents have been reviewed as part of the pre-operative evaluation. [facility] Past Medical History Medical History Smoker Depression Anxiety Osteoporosis COPD (chronic obstructive pulmonary disease) HTN (hypertension) Hypercholesterolemia BMI 28.0-28.9,adult Surgical History Surgical History History of back surgery c3-c4 laminectomy posterior fusion with arthrodesis fusion with nuvasive lateral mass/ pedicle screw system arthodeses using local morselized lamina Status post shoulder surgery Left shoulder acromioplasty and distal clavicle excision May 2020 H/O left knee surgery [place] 2004 Dr. Petersen History of appendectomy H/O right knee surgery 2006 - [facility] Dr. Petersen 1991 Dr perry - arthroscopic 1992 tibia repair - Dr. Villegas 1997 arthroscopic - Dr. Villegas H/O: hysterectomy Hx of tonsillectomy Family History Family History Mother Hypertension Heart disease Father Hypertension Diabetes mellitus Malignant neoplasm of prostate Cancer Social History Social History Smoking packs per day: 2 Smoking cigarettes per day: 40.0 Years smoked: 50 Smoking pack-years: 100.00 Smoking status: Current every day smoker Additional smoking assessment comments: TAPERING DOWN SMOKING CURRENTLY TO ~ 1/2 PACK/DAY Alcohol intake: current Drinks per week: 3 Alcohol use details: occasional Substance use: never Do You Feel Safe in your Home?: Yes Lack of Transportation: No Lack of Food: Never True Current Housing: I Do Not Have Housing Concerned About Future Housing: No Difficulty Paying Gas/Electric Bills: No Difficulty Paying for Meds: No Currently Unemployed: No Education: High School Diploma/GED Difficulty w/ Childcare or Family Care: No Living arrangements: with family Additional living arrangements comments: [facility] Occupation/Education: retired Gender identity (if verbalized by the patient): Male Spiritual care concerns: No Anes - Eval Final PreProcedure Day of Procedure 09/15/24 07:17 Patient weight: normal Lungs: normal air movement Airway: Mallampati scale class II Neurological: alert and oriented Last oral intake: >/= 8 hours ASA classification: III Emergent: no Anesthetic plan: proceed Anesthesia type and monitoring: general ETT and standard monitoring Results Review: All pre-operative results and documents have been reviewed as part of the pre-operative evaluation. HTN, hyperlipidemia, sig COPD w current 1/2 ppd smoker, overall 100 pack/year smoker. ECHO done 08/2024 w nml LVEF. Informed Consent: The patient's anesthetic plan and its attendant risks and benefits were discussed with the patient/family/POA. Questions were solicited and answers provided to the satisfaction of the patient/family/POA.
[2024-09-15] MEDS: ceFAZolin 2 GM/D5W 50 ML 2 GM/50 ML BAG IVPB (08:13)
[2024-09-15] MEDS: LIDO 1%/EPINEPHRINE 1:100,000 20 ML VIAL 50 ML INFILTRATE (08:16)
--- NOTE | 2024-09-15 08:48 | W.PM.PROC2 ---
Procedure Note - Detailed Date of Procedure 09/15/24 Pre-op Diagnosis RIGHT Rotator cuff tear and acromioclavicular arthritis Post-op Diagnosis Same Procedure Performed Arthroscopy the arthroscopic acromioplasty right shoulder Rotator cuff debridement repair Distal clavicle excision Surgeon Jonnie Crawford MD Anesthesia General Findings Pain and Tearing of the rotator Cuff Description of Procedure Patient brought to the operative room #7. A general anesthetic was administered. The patient was placed in the beach chair position with the RIGHT shoulder exposed.? After sterile prep and drape, standard posterior and lateral portals were used for arthroscopy. The joint itself showed moderately severe arthritis. The biceps tendon was intact.? There was fraying and tearing of the rotator cuff area in the supraspinatus tear region. This was gently debrided.? The subacromial space had an intense bursa, this was debrided with a shaver and acromioplasty performed arthroscopically.? The subacromial space was quite tight initially. I then proceeded to open the shoulder. A longitudinal incision made from the AC joint distalward over the shoulder.? Dissection carried down to the fascia. The fascia overlying the acromioclavicular joint was split. The AC joint found and a distal clavicle excision performed removing 3 to 4 millimeters of bone.? The edges beveled.? The deltoid was then split from the tip of the acromion. The remainder of the bursa was debrided.? The rotator cuff was torn in the supraspinatus interval. This was debrided and repaired to bone using #2 Ethibond suture.? At this point the deltoid was repaired to itself, the acromion and the trapezius with #2 Ethibond. The skin was closed with 2-0 Vicryl and familia.? A sterile dressing was applied. The patient tolerated the procedure well and left the operating room satisfactory condition. Estimated Blood Loss 50 Drains No Packing No Pathology None sent Complications No immediate complications Condition Stable Disposition PACU [facility] Billing Surgery - Charge Forward: Surgery Billing ([id number] RT Repair DCE)
[2024-09-15] MEDS: fentaNYL CITRATE INJ (*CRX) 100 MCG/2 ML VIAL 25 MCG IV PUSH ×2 (09:31→09:33)
[2024-09-15] MEDS: ONDANSETRON INJ 4 MG/2 ML VIAL IV PUSH (10:06)
[2024-09-15] MEDS: diphenhydrAMINE HCl INJ 50 MG/ML VIAL 12.5 MG IV PUSH (10:48)
[2024-09-15] MEDS: oxyCODONE HCL (*CRX) 5 MG TAB IR PO (11:09)
== END 2024-09-15 11:55 | disposition home or self-care (01) ==
PROVIDERS: PCP Internal Medicine; Visit Provider Orthopaedic Surgery
PROC: (CPT 29805; principal; 2024-09-15 07:30)
DX: M75.101 Unspecified rotator cuff tear or rupture of right shoulder, not specified as traumatic (principal); M19.011 Primary osteoarthritis, right shoulder; M67.813 Other specified disorders of tendon, right shoulder; M25.411 Effusion, right shoulder; I10 Essential (primary) hypertension; F32.A Depression, unspecified; F41.9 Anxiety disorder, unspecified; J44.9 Chronic obstructive pulmonary disease, unspecified; E78.00 Pure hypercholesterolemia, unspecified; M81.0 Age-related osteoporosis without current pathological fracture; F17.210 Nicotine dependence, cigarettes, uncomplicated; Z79.1 Long term (current) use of non-steroidal anti-inflammatories (NSAID); Z98.890 Other specified postprocedural states; Z98.1 Arthrodesis status; Z80.42 Family history of malignant neoplasm of prostate; Z82.49 Family history of ischemic heart disease and other diseases of the circulatory system
CPT/HCPCS: 23412; 23120; A9270; J0171; J0690; J1100; J1200; J1885; J2003; J2004; J2250; J2270; J2405; J2704; J3010; J7120